=== PATIENT | male | born 1945 | race Caucasian/White ===

== ENCOUNTER → 2016-09-18 | Outpatient (CLI) | payer OTHER, MEDICARE ==
[~2016-09-18] MED LIST: B-COTAB18 PO; CPR500 PO; DTR5 PO; GLC5 PO; METF-384 PO; MULT-412 PO; NRN600 PO; OMG3 PO; OPTIRAY 300 IV PRN; POTA99TA PO; ZCR80 PO
--- NOTE | 2016-09-18 15:01 | DIAGNOSTIC IMAGING REPORT ---
IVP W/OR W/O TOMOGRAMS CLINICAL HISTORY: Follow-up ureteral stone. COMPARISON STUDY: KUB 04/03/2016. Abdomen and pelvis CT 02/28/2016. FINDINGS: Youth Coordinator image shows no renal or ureteral calculi. Punctate calcification within the right deep pelvis is consistent with a phlebolith. Of note, the renal shadows are partially obscured by overlying bowel gas. Additional overhead and nephrotomographic images of the abdomen were performed following the intravenous injection of contrast. There is symmetric perfusion of the kidneys. No hydronephrosis. Duplicated left renal collecting system. Focal scarring within the lower pole of the right kidney. No suspicious filling defects are seen within the opacified bilateral renal collecting systems, ureters, or bladder. There is a small postvoid residual. The duplicated left ureters do not appear to join with both inserting into the bladder. IMPRESSION: 1. No renal or ureteral calculi identified. 2. No hydronephrosis. 3. Duplicated left renal collecting system. The ureters do not appear to join with both inserting into the bladder. Electronically signed by: Barron Munoz M.D. 09/18/2016 2:59 PM
== END | disposition home or self-care (01) ==
LOC: C.RAD 12:16
PROVIDERS: ATTEND Urology
DX: N20.1 Calculus of ureter (principal); Q63.8 Other specified congenital malformations of kidney

== ENCOUNTER 2021-09-27 09:56 | Observation (INO) ==
--- NOTE | 2021-09-27 10:33 | Emergency Department Note ---
History of Present Illness General Chief complaint: Cough Stated complaint: COUGH, FEVER Time Seen by Provider: 09/27/21 10:16 Source: patient, RN notes reviewed and old records reviewed Mode of arrival: EMS Limitations: no limitations History of Present Illness This patient is a 75-year-old male who comes in complaint dry cough and shortn ess of breath. He says he has been sick since the middle of August. He apparently saw somebody in the [facility] office yesterday and told tells me he had a chest x-ray and a COVID test which were unremarkable. He has been drinking fluids although had 1 episode of posttussive emesis after coughing he says his mouth feels dry. No blood or melena stool. He does feel short of breath most of the time but worse when he coughs. No chest pain. No lower extremity pain or swelling. He has not had the COVID-vaccine. Denies that he has any underlying lung problems Home Medications Medication Instructions Recorded Confirmed Type aspirin 81 mg tablet 81 mg PO DAILY 09/27/21 09/27/21 History dulaglutide 3 mg/0.5 mL 3 mg SUBCUT WK 09/27/21 09/27/21 History subcutaneous pen injector (Trulicity) fluticasone propionate 50 2 spray INTRANASAL DAILY 09/27/21 09/27/21 History mcg/actuation nasal spray,suspension glipizide 10 mg tablet 10 mg PO BID 09/27/21 09/27/21 History metformin 1,000 mg tablet 1,000 mg PO UD 09/27/21 09/27/21 History metoprolol succinate 25 mg 25 mg PO DAILY 09/27/21 09/27/21 History tablet,extended release 24 hr multivitamin 1 tab PO DAILY 09/27/21 09/27/21 History omega-3s 300 eu-fnm-mes-other 1 cap PO 3XWK 09/27/21 09/27/21 History [id number] oil 1,000 mg capsule ([place]-3 Fish Oil) pantoprazole 40 mg tablet,delayed 40 mg PO BID 09/27/21 09/27/21 History release simvastatin 80 mg tablet 80 mg PO HS 09/27/21 09/27/21 History Allergies Allergy/AdvReac Type Severity Reaction Status Date / Time No Known Allergies Allergy Unverified 06/15/16 17:43 Past Med/Surg History Medical History (Updated 09/27/21 @ 15:19 by Seth Gerardo MD) Anxiety Calculus of gallbladder Diabetic polyneuropathy DM type 2 (diabetes mellitus, type 2) Dyslipidemia GERD (gastroesophageal reflux disease) Hx of adenomatous polyp of colon Hx of basal cell carcinoma Osteoarthritis Surgical History H/O colonoscopy Family History Father Colorectal cancer Diabetes Heart disease Brother Colorectal cancer Mother Breast cancer Sister Diabetes Social History Smoking Status: Never smoker Tobacco Type: Smokeless Tobacco (Dip or Chew) Hx Alcohol Use: No Hx Substance Use: No 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 Denies history of hypertension, cardiac disease, pulmonary disease, blood clots. He is on no blood thinners. Social history-he is and lives locally with his . He does not smoke or drink. Review of Systems A total of 10 systems reviewed and were otherwise negative Physical Exam Vital Signs Vital Signs - 24 hr 09/27/21 10:04 09/27/21 10:46 09/27/21 10:59 Temperature 37.1 C Temperature Source Oral Pulse Rate 98 H 92 H Pulse Rate [Apical] 98 H 93 H Pulse Rhythm [Apical] Regular Pulse Strength [Apical] Normal Respiratory Rate 14 24 Respiratory Effort / Characteristics Non-Labored Non-Labored Spontaneous Non-Labored Spontaneous Respiratory Depth Normal Normal Respiratory Pattern Regular Regular Blood Pressure 163/74 H Blood Pressure [Right Arm] 163/74 H 163/74 H Blood Pressure Mean 103 Blood Pressure Mean [Right Arm] 103 103 Blood Pressure Position Sitting Blood Pressure Position [Right Arm] Sitting Pulse Oximetry 94 94 Oxygen Delivery Method Room Air Room Air Oxygen Flow Rate Sepsis Recent Fever Within 48 Hours Yes Sepsis New/Unexplained Change in Mental Status No Sepsis Action Taken by Nursing No Action Required 09/27/21 11:15 09/27/21 11:30 09/27/21 12:00 Temperature Temperature Source Oral Pulse Rate Pulse Rate [Apical] 92 H 91 H 94 H Pulse Rhythm [Apical] Pulse Strength [Apical] Respiratory Rate 24 44 H 44 H Respiratory Effort / Characteristics Non-Labored Spontaneous Non-Labored Spontaneous Non-Labored Spontaneous Respiratory Depth Normal Normal Normal Respiratory Pattern Blood Pressure Blood Pressure [Right Arm] 125/79 123/76 127/74 Blood Pressure Mean Blood Pressure Mean [Right Arm] 94 91 91 Blood Pressure Position Blood Pressure Position [Right Arm] Pulse Oximetry 90 91 91 Oxygen Delivery Method Room Air Room Air Room Air Oxygen Flow Rate Sepsis Recent Fever Within 48 Hours Sepsis New/Unexplained Change in Mental Status Sepsis Action Taken by Nursing 09/27/21 12:15 09/27/21 12:30 09/27/21 13:00 Temperature Temperature Source Pulse Rate Pulse Rate [Apical] 91 H 92 H Pulse Rhythm [Apical] Pulse Strength [Apical] Respiratory Rate 28 H 40 H Respiratory Effort / Characteristics Non-Labored Spontaneous Non-Labored Spontaneous Non-Labored Spontaneous Respiratory Depth Normal Normal Respiratory Pattern Blood Pressure Blood Pressure [Right Arm] 124/75 143/87 H Blood Pressure Mean Blood Pressure Mean [Right Arm] 91 105 Blood Pressure Position Blood Pressure Position [Right Arm] Pulse Oximetry 90 92 Oxygen Delivery Method Room Air Room Air Oxygen Flow Rate Sepsis Recent Fever Within 48 Hours Sepsis New/Unexplained Change in Mental Status Sepsis Action Taken by Nursing 09/27/21 13:03 09/27/21 14:00 09/27/21 14:30 Temperature Temperature Source Pulse Rate Pulse Rate [Apical] 91 H Pulse Rhythm [Apical] Pulse Strength [Apical] Respiratory Rate 34 H Respiratory Effort / Characteristics Non-Labored Spontaneous Non-Labored Spontaneous Respiratory Depth Normal Respiratory Pattern Blood Pressure Blood Pressure [Right Arm] 136/87 Blood Pressure Mean Blood Pressure Mean [Right Arm] 103 Blood Pressure Position Blood Pressure Position [Right Arm] Pulse Oximetry 95 Oxygen Delivery Method Room Air Nasal Cannula Oxygen Flow Rate 2 Sepsis Recent Fever Within 48 Hours Sepsis New/Unexplained Change in Mental Status Sepsis Action Taken by Nursing 09/27/21 15:00 Temperature Temperature Source Pulse Rate Pulse Rate [Apical] Pulse Rhythm [Apical] Pulse Strength [Apical] Respiratory Rate Respiratory Effort / Characteristics Non-Labored Spontaneous Respiratory Depth Respiratory Pattern Blood Pressure Blood Pressure [Right Arm] Blood Pressure Mean Blood Pressure Mean [Right Arm] Blood Pressure Position Blood Pressure Position [Right Arm] Pulse Oximetry Oxygen Delivery Method Oxygen Flow Rate Sepsis Recent Fever Within 48 Hours Sepsis New/Unexplained Change in Mental Status Sepsis Action Taken by Nursing General: Well developed well nourished older male who appears in no acute distress, breathing comfortably on room air. Normal speech HEENT: Normal cephalic atraumatic. Pupils are equal round and reactive to light. Extraocular movements are intact. Oropharynx is pink with moist mucous membranes. No swelling of the mouth lips or tongue. Neck: Supple with a midline trachea. No meningeal signs or stiffness, no JVD or bruits. No Stridor. Chest: Clear to auscultation bilaterally with the exception of some crackles in the bases right greater than left. No increased work of breathing. Heart: Regular rate and rhythm without murmurs or gallops. Abdomen: Soft nontender, nondistended without rebound guarding or rigidity. Extremities: No cyanosis clubbing or edema. No calf tenderness or assymetry Spine/Back. Non tender to palpation. No CVA tenderness Skin: Good turgor without rashes. Neurologic exam: Cranial nerves two through 12 are intact. Motor and sensation are intact and symmetrical throughout. Course Administered Medications Magnesium Sulfate/Dextrose (Magnesium Sulfate / D5w) 1 gm in 100 mls @ 50 mls/h r IV Q2H [facility] Stop: 09/27/21 18:17 Last Admin: 09/27/21 14:43 Dose: 50 mls/hr Documented by: [id number] Discontinued Medications Dexamethasone Sodium Phosphate (DexamethasonePf 10 Mg/Ml Vial) 6 mg IV NOW ONE Stop: 09/27/21 12:57 Last Admin: 09/27/21 13:45 Dose: 6 mg Documented by: [id number] Potassium Chloride (Potassium Chloride Crtab 20 Meq Tabcr) 40 meq PO NOW STA Stop: 09/27/21 14:19 Last Admin: 09/27/21 14:43 Dose: 40 meq Documented by: [id number] Medical Decision Making Differential Diagnosis COVID, pneumonia, sepsis, CHF, cardiac disease, influenza, electrolyte or metabo lic abnormality, arrhythmia Medical Records Attestation: I reviewed the patient's medical records. Home Medications Current Medication List: was personally reviewed by me Laboratory Data Attestation: I reviewed the patient's lab results. Result diagrams: 09/27/21 10:45 09/27/21 10:45 Lab Results 09/27/21 09/27/21 09/27/21 Range/Units 10:45 10:45 10:45 WBC 3.21 L (4.8-10.8) K/uL RBC 4.57 L (4.7-6.1) M/uL Hgb 13.9 L (14.0-18.0) g/dL Hct 41.6 L (42-52) % MCV 91.0 (80-100) fL MCH 30.4 (25-34) pg MCHC 33.4 (32-36) g/dL RDW Std Deviation 44.2 (36.4-46.3) fL RDW Coeff of Donna 13.2 (11.5-14.5) % Plt Count 154 (130-400) K/uL MPV 9.7 (7.4-10.4) fL Immature Gran % (Auto) 0.3 % Neut % (Auto) 73.8 % Lymph % (Auto) 15.0 % [place] % (Auto) 10.9 % Eos % (Auto) 0.0 % Baso % (Auto) 0.0 % Neut # (Auto) 2.37 (1.4-6.5) K/uL Lymph # (Auto) 0.48 L (1.2-3.4) K/uL [place] # (Auto) 0.35 (0.11-0.59) K/uL Eos # (Auto) 0.00 (0-0.5) K/uL Baso # (Auto) 0.00 (0-0.2) K/uL Immature Gran # (Auto) 0.01 (0.00-0.02) K/uL PT 10.3 (9.0-12.0) Seconds INR 1.0 (0.9-1.1) APTT 29.6 (21.0-31.0) Seconds PTT Ratio 1.1 D-Dimer 400 (0-500) ug/L FEU Sodium 136 (136-145) mmol/L Potassium 3.4 L (3.5-5.1) mmol/L Chloride 99 (98-107) mmol/L Carbon Dioxide 25 (21-32) mmol/L Anion Gap 12 H (3-11) BUN 10 (6-23) mg/dl Creatinine 0.57 L (0.6-1.4) mg/dl Est Cr Clr Drug Dosing 124.5 ml/min Est GFR ( Amer) 118.1 ml/min Est GFR (Non-Af Amer) 101.9 ml/min BUN/Creatinine Ratio 17.5 (10-20) Glucose 236 H (70-99) mg/dl Lactate (0.4-2.0) mmol/L Calcium 8.2 L (8.5-10.1) mg/dl Magnesium 1.6 L (1.7-2.4) mg/dl Total Bilirubin 0.6 (0.2-1.0) mg/dl AST 35 (13-39) U/L ALT 23 (7-52) U/L Alkaline Phosphatase 48 (34-104) U/L Troponin I < 0.03 (0-0.04) ng/ml B-Natriuretic Peptide (0-100) pg/ml Total Protein 6.8 (6.0-8.3) gm/dl Albumin 3.6 (3.4-5.0) gm/dl Globulin 3.2 (2.5-4.0) gm/dl Albumin/Globulin Ratio 1.1 (0.9-2) Procalcitonin (0-0.5) ng/ml SARS-CoV-2 (PCR) (Negative) Influenza Type A (PCR) (Neg) Influenza Type B (PCR) (Neg) RSV (RT-PCR) (Neg) 09/27/21 09/27/21 09/27/21 Range/Units 10:45 10:45 10:45 WBC (4.8-10.8) K/uL RBC (4.7-6.1) M/uL Hgb (14.0-18.0) g/dL Hct (42-52) % MCV (80-100) fL MCH (25-34) pg MCHC (32-36) g/dL RDW Std Deviation (36.4-46.3) fL RDW Coeff of Donna (11.5-14.5) % Plt Count (130-400) K/uL MPV (7.4-10.4) fL Immature Gran % (Auto) % Neut % (Auto) % Lymph % (Auto) % [place] % (Auto) % Eos % (Auto) % Baso % (Auto) % Neut # (Auto) (1.4-6.5) K/uL Lymph # (Auto) (1.2-3.4) K/uL [place] # (Auto) (0.11-0.59) K/uL Eos # (Auto) (0-0.5) K/uL Baso # (Auto) (0-0.2) K/uL Immature Gran # (Auto) (0.00-0.02) K/uL PT (9.0-12.0) Seconds INR (0.9-1.1) APTT (21.0-31.0) Seconds PTT Ratio D-Dimer (0-500) ug/L FEU Sodium (136-145) mmol/L Potassium (3.5-5.1) mmol/L Chloride (98-107) mmol/L Carbon Dioxide (21-32) mmol/L Anion Gap (3-11) BUN (6-23) mg/dl Creatinine (0.6-1.4) mg/dl Est Cr Clr Drug Dosing ml/min Est GFR ( Amer) ml/min Est GFR (Non-Af Amer) ml/min BUN/Creatinine Ratio (10-20) Glucose (70-99) mg/dl Lactate 0.9 (0.4-2.0) mmol/L Calcium (8.5-10.1) mg/dl Magnesium (1.7-2.4) mg/dl Total Bilirubin (0.2-1.0) mg/dl AST (13-39) U/L ALT (7-52) U/L Alkaline Phosphatase (34-104) U/L Troponin I (0-0.04) ng/ml B-Natriuretic Peptide (0-100) pg/ml Total Protein (6.0-8.3) gm/dl Albumin (3.4-5.0) gm/dl Globulin (2.5-4.0) gm/dl Albumin/Globulin Ratio (0.9-2) Procalcitonin 0.06 (0-0.5) ng/ml SARS-CoV-2 (PCR) POSITIVE A* (Negative) Influenza Type A (PCR) Negative (Neg) Influenza Type B (PCR) Negative (Neg) RSV (RT-PCR) Negative (Neg) 09/27/21 Range/Units 12:43 WBC (4.8-10.8) K/uL RBC (4.7-6.1) M/uL Hgb (14.0-18.0) g/dL Hct (42-52) % MCV (80-100) fL MCH (25-34) pg MCHC (32-36) g/dL RDW Std Deviation (36.4-46.3) fL RDW Coeff of Donna (11.5-14.5) % Plt Count (130-400) K/uL MPV (7.4-10.4) fL Immature Gran % (Auto) % Neut % (Auto) % Lymph % (Auto) % [place] % (Auto) % Eos % (Auto) % Baso % (Auto) % Neut # (Auto) (1.4-6.5) K/uL Lymph # (Auto) (1.2-3.4) K/uL [place] # (Auto) (0.11-0.59) K/uL Eos # (Auto) (0-0.5) K/uL Baso # (Auto) (0-0.2) K/uL Immature Gran # (Auto) (0.00-0.02) K/uL PT (9.0-12.0) Seconds INR (0.9-1.1) APTT (21.0-31.0) Seconds PTT Ratio D-Dimer (0-500) ug/L FEU Sodium (136-145) mmol/L Potassium (3.5-5.1) mmol/L Chloride (98-107) mmol/L Carbon Dioxide (21-32) mmol/L Anion Gap (3-11) BUN (6-23) mg/dl Creatinine (0.6-1.4) mg/dl Est Cr Clr Drug Dosing ml/min Est GFR ( Amer) ml/min Est GFR (Non-Af Amer) ml/min BUN/Creatinine Ratio (10-20) Glucose (70-99) mg/dl Lactate (0.4-2.0) mmol/L Calcium (8.5-10.1) mg/dl Magnesium (1.7-2.4) mg/dl Total Bilirubin (0.2-1.0) mg/dl AST (13-39) U/L ALT (7-52) U/L Alkaline Phosphatase (34-104) U/L Troponin I (0-0.04) ng/ml B-Natriuretic Peptide 26 (0-100) pg/ml Total Protein (6.0-8.3) gm/dl Albumin (3.4-5.0) gm/dl Globulin (2.5-4.0) gm/dl Albumin/Globulin Ratio (0.9-2) Procalcitonin (0-0.5) ng/ml SARS-CoV-2 (PCR) (Negative) Influenza Type A (PCR) (Neg) Influenza Type B (PCR) (Neg) RSV (RT-PCR) (Neg) Imaging Data Attestation: I personally reviewed and interpreted this imaging study as foll ows: My Impression: Chest x-raydiffuse patchy infiltrates consistent consistent with COVID Radiologist's Impression: Chest X-Ray 09/27/21 10:29 XR chest 1V portable CLINICAL HISTORY: SEPSIS COMPARISON STUDY: Chest radiograph February 28, 2016. FINDINGS: Low lung volumes are noted. This is unchanged. No pneumothorax or pleural effusion is present. Interstitial thickening and suspected patchy bilateral airspace opacities are present. Cardiomediastinal silhouette is stable. IMPRESSION: Interstitial thickening and suspected patchy bilateral airspace opacities. The findings favor an infectious process. Pulmonary edema could appear similar. Radiographic follow-up is recommended to ensure resolution. ACT 112: Negative or not required by law. Electronically signed by: Sean Ludwig M.D. 09/27/2021 11:15 AM ECG Data Attestation: I personally reviewed and interpreted this ECG as follows: Indication: + SOB/dyspnea Rate (beats per minute): 95 Rhythm: + normal sinus ECG Intervals/blocks: + Normal QRS, + Prolonged QT and + Normal NE ECG Wallace: + Normal ECG ST segments: + Normal ST segments ECG Findings: + Other (Poor baseline/artifact); no PACs or no PVCs Comparison ECG Date: from (02/27/11) Change: no significant change MDM Narrative This patient comes in as described above. He was placed in room B7. he has had a cough although he denies fever he may have had a fever at some point. He does have some crackles in his bases. He was checked for COVID/influenza and a full sepsis type work-up was done to evaluate him for possible pneumonia sepsis and other etiologies as well as cardiac disease and blood clots. A D-dimer was also obtained. His lungs sound crackly and his chest x-ray also looks like a COVID infection. EKG was unremarkable for any ischemic changes or ectopy. He is nursing of electrolyte or metabolic abnormalities. COVID test did come back positive. The patient is hypoxemic with an O2 sat of 90 and given his symptoms I do think he should be admitted/observed. He was started on supplemental ox ygen as well as Decadron 6 mg IV [facility] these measures. Continuous cardiac monitoring: Orders were placed in EMR for continuous awake overnight monitor. Upon my interpretation patient was noted to be in normal sinus rhythm with a rate of 90 Impression & Plan COVID, Cough, Hypoxemia, SOB (shortness of breath) Discharge Plan Visit Data Chief Complaint: Cough Stated Complaint: COUGH, FEVER ED Provider: Seth Gerardo Discharge Problem: COVID, Cough, Hypoxemia, SOB (shortness of breath) Forms Stand Alone Forms: My [facility] Prescriptions Prescriptions: No Action multivitamin Tablet 1 tab PO DAILY RF: 0 glipizide 10 mg tablet 10 mg PO BID RF: 0 simvastatin 80 mg tablet 80 mg PO HS RF: 0 metformin 1,000 mg tablet 1,000 mg PO UD RF: 0 [place]-3 Fish Oil 300-1,000 mg Capsule 1 cap PO 3XWK RF: 0 pantoprazole 40 mg tablet,delayed release (DR/EC) 40 mg PO BID RF: 0 aspirin 81 mg Tablet 81 mg PO DAILY RF: 0 metoprolol succinate 25 mg tablet extended release 24 hr 25 mg PO DAILY RF: 0 fluticasone propionate 50 mcg/actuation [place],Suspension 2 spray INTRANASAL DAILY RF: 0 Trulicity 3 mg/0.5 mL pen injector 3 mg SUBCUT WK RF: 0 Referrals Referrals: Claire Richardson MD [Outside Practitioners] -
[2021-09-27 11:10] LABS: Hematocrit (blood only) 41.6 % (42-52); Hemoglobin 13.9 g/dL (14.0-18.0); Immature Granulocytes # (auto) 0.01 K/uL (0.00-0.02); Immature Granulocytes % (auto) 0.3 %; Lymphocytes # (auto) 0.48 K/uL (1.2-3.4); Mean Corpuscular Hemoglobin 30.4 pg (25-34); Mean Corpuscular Hgb Conc 33.4 g/dL (32-36); Mean Platelet Volume 9.7 fL (7.4-10.4); Monocytes # (auto) 0.35 K/uL (0.11-0.59); Monocytes % (auto) 10.9 %; Neutrophils # (auto) 2.37 K/uL (1.4-6.5); Neutrophils % (auto) 73.8 %; Platelet Count 154 K/uL (130-400); RDW Coefficient of Variation 13.2 % (11.5-14.5); RDW Standard Deviation 44.2 fL (36.4-46.3); Red Blood Count 4.57 M/uL (4.7-6.1); White Blood Count 3.21 K/uL (4.8-10.8)
--- NOTE | 2021-09-27 11:16 | XRay Report ---
XR chest 1V portable CLINICAL HISTORY: SEPSIS COMPARISON STUDY: Chest radiograph February 28, 2016. FINDINGS: Low lung volumes are noted. This is unchanged. No pneumothorax or pleural effusion is prese nt. Interstitial thickening and suspected patchy bilateral airspace opacities are present. Cardiomedi astinal silhouette is stable. IMPRESSION: Interstitial thickening and suspected patchy bilateral airspace opacities. The findings favor an infectious process. Pulmonary edema could appear similar. Radiographic follow-up is recommen ded to ensure resolution. ACT 112: Negative or not required by law. Electronically signed by: Sean Ludwig M.D. 09/27/2021 11:15 AM
[2021-09-27 11:22] LABS: D Dimer 400 ug/L FEU (0-500); Partial Thromboplastin Ratio 1.1; Partial Thromboplastin Time 29.6 Seconds (21.0-31.0); Prothrombin Time 10.3 Seconds (9.0-12.0)
[2021-09-27 11:28] LABS: Albumin Level 3.6 gm/dl (3.4-5.0); Anion Gap 12 (3-11); Bilirubin,Total 0.6 mg/dl (0.2-1.0); Calcium 8.2 mg/dl (8.5-10.1); Carbon Dioxide 25 mmol/L (21-32); Chloride 99 mmol/L (98-107); Magnesium 1.6 mg/dl (1.7-2.4); Potassium 3.4 mmol/L (3.5-5.1); Sodium 136 mmol/L (136-145)
[2021-09-27 11:33] LABS: Troponin I < 0.03 ng/ml (0-0.04)
[2021-09-27 11:34] LABS: Alanine Aminotransferase 23 U/L (7-52); Albumin Globulin Ratio 1.1 (0.9-2); Alkaline Phosphatase 48 U/L (34-104); Aspartate Aminotransferase 35 U/L (13-39); BUN Creatinine Ratio 17.5 (10-20); Blood Urea Nitrogen 10 mg/dl (6-23); Creatinine Clr Calc Pharmacy 124.5 ml/min; Est GFR (African American) 118.1 ml/min; Est GFR (Non-African American) 101.9 ml/min; Globulin 3.2 gm/dl (2.5-4.0); Glucose 236 mg/dl (70-99); Total Protein 6.8 gm/dl (6.0-8.3)
[2021-09-27 12:07] LABS: Influenza A virus by PCR Negative (Neg); Influenza B virus by PCR Negative (Neg); RSV by PCR Negative (Neg)
[2021-09-27 12:24] LABS: SARS CoV2 RNA(COVID-19) InHosp POSITIVE (Negative)
[2021-09-27] MEDS ORDERED: dexAMETHasone**PF** 10 MG/ML VIAL IV ONE (12:56)
--- NOTE | 2021-09-27 13:25 | History & Physical Report ---
Date of Service September 27, 2021 Assessment & Plan (1) Pneumonia due to COVID-19 virus: Plan: Admit to med/surg due to worsening clinical status, borderline O2 sats, co- morbid diabetes - Start dexamethasone - Monitor sats and start O2 if worsening - Labs in AM - Incentive spirometer/flutter valve (2) Hypokalemia: Plan: Replete and recheck in AM (3) Hypomagnesemia: Plan: Replete and recheck in AM (4) DM type 2 (diabetes mellitus, type 2): Plan: Will need to monitor sugars closely with use of dexamethasone. Holding outpatient meds - Insulin sliding scale - Accuchecks - Diabetic diet - A1c in the AM (5) Diabetic polyneuropathy: (6) Dyslipidemia: (7) GERD (gastroesophageal reflux disease): Plan: Continue home meds as appropriate for chronic diagnoses. Pt seen and reviewed with Dr. Santos. Plan of care discussed and as outlined above. DVT Prophylaxis: Lovenox Code status: DNR/DNI Raissa Tolentino PA-C History of Present Illness Chief Complaint: Cough Primary Care Provider: Oliverio Graves MD This is 75 y/o male with a PMH of DM2, polyneuropathy, dyslipidemia and OA presents with worsening cough x 1 month. He was seen by PCP office on 08/29 due to chest congestion and tightness with some head congestion but no cough at the time. COVID test was negative that day. Since then he has developed a cough that is becoming gradually worse. The cough is mostly non-productive but he will occasionally cough up a small amount of sputum. He reports that the cough kept him up all night last night which is the only reason that he came for evaluation this morning. [facility] records reviewed - his called the office two days ago concerned that pt had pneumonia. Chest x-ray was done outpatient yesterday and showed bibasilar atelectasis, could not rule out infection. He has been using cough drops and Cathy-seltzer for the cough for the past few days. Mouth feels very dry. No fevers, chills or sweats. His taste and smell have remained intact. No abdominal pain, N/V/D. Blood sugars in the 150s until about 1-2 weeks ago - since then they have been over 200 frequently but pt attributes to taking OTC cough meds. Appetite decreased. Denies chest pain, palpitations. No urinary symptoms. No sore throat, PND, head congestion at present. He did receive his flu vaccine this year but has not been vaccinated for COVID. Allergies Allergy/AdvReac Type Severity Reaction Status Date / Time No Known Allergies Allergy Unverified 02/28/16 17:43 Home Medications Medication Instructions Recorded Confirmed Type aspirin 81 mg tablet 81 mg PO DAILY 09/27/21 09/27/21 History dulaglutide 3 mg/0.5 mL 3 mg SUBCUT WK 09/27/21 09/27/21 History subcutaneous pen injector (Trulicity) fluticasone propionate 50 2 spray INTRANASAL DAILY 09/27/21 09/27/21 History mcg/actuation nasal spray,suspension glipizide 10 mg tablet 10 mg PO BID 09/27/21 09/27/21 History metformin 1,000 mg tablet 1,000 mg PO UD 09/27/21 09/27/21 History metoprolol succinate 25 mg 25 mg PO DAILY 09/27/21 09/27/21 History tablet,extended release 24 hr multivitamin 1 tab PO DAILY 09/27/21 09/27/21 History omega-3s 300 [id number] 1 cap PO 3XWK 09/27/21 09/27/21 History [id number] oil 1,000 mg capsule (Lomita-3 Fish Oil) pantoprazole 40 mg tablet,delayed 40 mg PO BID 09/27/21 09/27/21 History release simvastatin 80 mg tablet 80 mg PO HS 09/27/21 09/27/21 History Past Med/Surg History Medical History (Updated 09/27/21 @ 14:57 by Seda Tolentino PA-C) Anxiety Calculus of gallbladder Diabetic polyneuropathy DM type 2 (diabetes mellitus, type 2) Dyslipidemia GERD (gastroesophageal reflux disease) Hx of adenomatous polyp of colon Hx of basal cell carcinoma Osteoarthritis Surgical History H/O colonoscopy Family History Father Colorectal cancer Diabetes Heart disease Brother Colorectal cancer Mother Breast cancer Sister Diabetes Social History Smoking Status: Never smoker Tobacco Type: Smokeless Tobacco (Dip or Chew) Hx Alcohol Use: No Hx Substance Use: No 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 Feels Safe at Home: Yes Review of Systems Review of Systems: All systems reviewed & are unremarkable except as noted in HPI & below Constitutional: + fatigue and + anorexia; no fever, no chills and no sweats Eyes: no diplopia and no worsening vision Ear, Nose, Mouth, Throat: no nasal congestion, no nasal discharge and no sore throat Respiratory: + cough; no chest congestion, no dyspnea and no wheezing Cardiovascular: no chest pain, no palpitations, no syncope and no edema Gastrointestinal: no abdominal pain, no nausea, no vomiting and no diarr hea/loose stools Genitourinary: no dysuria, no decreased urination or no hematuria Musculoskeletal: no back pain and no neck pain Integumentary: no rash and no yellowing of the skin Neurologic: no generalized weakness and no headache(s) Psychiatric: no depression and no anxiety Physical Exam Constitutional: well developed and well nourished; no acute distress Eyes: + anicteric sclerae Neck: trachea midline Respiratory: no respiratory distress and no labored breathing Auscultation: + diminished lung sounds and + crackles (at bilateral bases); no rales and no rhonchi Cardiovascular: Rate/Rhythm: regular rate and regular rhythm Vessels: dorsalis pedis pulses present and radial pulses present; no carotid bruit Extremities: no pedal edema Gastrointestinal (Abdomen): Inspection/Auscultation: normal bowel sounds; abdomen not distended Percussion/Palpation: abdomen soft; abdomen nontender Musculoskeletal: Head/Neck/Chest: normocephalic, head atraumatic and neck supple Skin: no jaundice Neurologic: moves all extremities; no focal motor deficits Psychiatric: A+Ox3, euthymic affect Results & Data Results & Data ([facility]) Vital Signs (Past 12 Hours) Vital Signs Temp Pulse Pulse Resp BP BP Pulse Ox 09/27/21 12:15 91 H 28 H 124/75 90 09/27/21 12:00 94 H 44 H 127/74 91 09/27/21 11:30 91 H 44 H 123/76 91 09/27/21 11:15 92 H 24 125/79 90 09/27/21 10:46 92 H 93 H 24 163/74 H 94 09/27/21 10:04 37.1 C 98 H 98 H 14 163/74 H 163/74 H 94 Laboratory Results Laboratory Results - last 24 hr 09/27/21 09/27/21 09/27/21 10:45 10:45 10:45 WBC 3.21 L RBC 4.57 L Hgb 13.9 L Hct 41.6 L MCV 91.0 MCH 30.4 MCHC 33.4 RDW Std Deviation 44.2 RDW Coeff of Donna 13.2 Plt Count 154 MPV 9.7 Immature Gran % (Auto) 0.3 Neut % (Auto) 73.8 Lymph % (Auto) 15.0 Bibb % (Auto) 10.9 Eos % (Auto) 0.0 Baso % (Auto) 0.0 Neut # (Auto) 2.37 Lymph # (Auto) 0.48 L Bibb # (Auto) 0.35 Eos # (Auto) 0.00 Baso # (Auto) 0.00 Immature Gran # (Auto) 0.01 PT 10.3 INR 1.0 APTT 29.6 PTT Ratio 1.1 D-Dimer 400 Sodium 136 Potassium 3.4 L Chloride 99 Carbon Dioxide 25 Anion Gap 12 H BUN 10 Creatinine 0.57 L Est Cr Clr Drug Dosing 124.5 Est GFR ( Amer) 118.1 Est GFR (Non-Af Amer) 101.9 BUN/Creatinine Ratio 17.5 Glucose 236 H Lactate Calcium 8.2 L Magnesium 1.6 L Total Bilirubin 0.6 AST 35 ALT 23 Alkaline Phosphatase 48 Troponin I < 0.03 B-Natriuretic Peptide Total Protein 6.8 Albumin 3.6 Globulin 3.2 Albumin/Globulin Ratio 1.1 Procalcitonin SARS-CoV-2 (PCR) Influenza Type A (PCR) Influenza Type B (PCR) RSV (RT-PCR) 09/27/21 09/27/21 09/27/21 10:45 10:45 10:45 WBC RBC Hgb Hct MCV MCH MCHC RDW Std Deviation RDW Coeff of Donna Plt Count MPV Immature Gran % (Auto) Neut % (Auto) Lymph % (Auto) Bibb % (Auto) Eos % (Auto) Baso % (Auto) Neut # (Auto) Lymph # (Auto) Bibb # (Auto) Eos # (Auto) Baso # (Auto) Immature Gran # (Auto) PT INR APTT PTT Ratio D-Dimer Sodium Potassium Chloride Carbon Dioxide Anion Gap BUN Creatinine Est Cr Clr Drug Dosing Est GFR ( Amer) Est GFR (Non-Af Amer) BUN/Creatinine Ratio Glucose Lactate 0.9 Calcium Magnesium Total Bilirubin AST ALT Alkaline Phosphatase Troponin I B-Natriuretic Peptide Total Protein Albumin Globulin Albumin/Globulin Ratio Procalcitonin 0.06 SARS-CoV-2 (PCR) POSITIVE A* Influenza Type A (PCR) Negative Influenza Type B (PCR) Negative RSV (RT-PCR) Negative 09/27/21 12:43 WBC RBC Hgb Hct MCV MCH MCHC RDW Std Deviation RDW Coeff of Donna Plt Count MPV Immature Gran % (Auto) Neut % (Auto) Lymph % (Auto) Bibb % (Auto) Eos % (Auto) Baso % (Auto) Neut # (Auto) Lymph # (Auto) Bibb # (Auto) Eos # (Auto) Baso # (Auto) Immature Gran # (Auto) PT INR APTT PTT Ratio D-Dimer Sodium Potassium Chloride Carbon Dioxide Anion Gap BUN Creatinine Est Cr Clr Drug Dosing Est GFR ( Amer) Est GFR (Non-Af Amer) BUN/Creatinine Ratio Glucose Lactate Calcium Magnesium Total Bilirubin AST ALT Alkaline Phosphatase Troponin I B-Natriuretic Peptide Pending Total Protein Albumin Globulin Albumin/Globulin Ratio Procalcitonin SARS-CoV-2 (PCR) Influenza Type A (PCR) Influenza Type B (PCR) RSV (RT-PCR) Diagnostic Findings Chest X-ray 09/27/21 - IMPRESSION: Interstitial thickening and suspected patchy bilateral airspace opacities. The findings favor an infectious process. Pulmonary edema could appear similar. Radiographic follow-up is recommended to ensure resolution. Medications Administered Laboratory Results - last 24 hr 09/27/21 09/27/21 09/27/21 10:45 10:45 10:45 WBC 3.21 L RBC 4.57 L Hgb 13.9 L Hct 41.6 L MCV 91.0 MCH 30.4 MCHC 33.4 RDW Std Deviation 44.2 RDW Coeff of Donna 13.2 Plt Count 154 MPV 9.7 Immature Gran % (Auto) 0.3 Neut % (Auto) 73.8 Lymph % (Auto) 15.0 Bibb % (Auto) 10.9 Eos % (Auto) 0.0 Baso % (Auto) 0.0 Neut # (Auto) 2.37 Lymph # (Auto) 0.48 L Bibb # (Auto) 0.35 Eos # (Auto) 0.00 Baso # (Auto) 0.00 Immature Gran # (Auto) 0.01 PT 10.3 INR 1.0 APTT 29.6 PTT Ratio 1.1 D-Dimer 400 Sodium 136 Potassium 3.4 L Chloride 99 Carbon Dioxide 25 Anion Gap 12 H BUN 10 Creatinine 0.57 L Est Cr Clr Drug Dosing 124.5 Est GFR ( Amer) 118.1 Est GFR (Non-Af Amer) 101.9 BUN/Creatinine Ratio 17.5 Glucose 236 H Lactate Calcium 8.2 L Magnesium 1.6 L Total Bilirubin 0.6 AST 35 ALT 23 Alkaline Phosphatase 48 Troponin I < 0.03 B-Natriuretic Peptide Total Protein 6.8 Albumin 3.6 Globulin 3.2 Albumin/Globulin Ratio 1.1 Procalcitonin SARS-CoV-2 (PCR) Influenza Type A (PCR) Influenza Type B (PCR) RSV (RT-PCR) 09/27/21 09/27/21 09/27/21 10:45 10:45 10:45 WBC RBC Hgb Hct MCV MCH MCHC RDW Std Deviation RDW Coeff of Donna Plt Count MPV Immature Gran % (Auto) Neut % (Auto) Lymph % (Auto) Bibb % (Auto) Eos % (Auto) Baso % (Auto) Neut # (Auto) Lymph # (Auto) Bibb # (Auto) Eos # (Auto) Baso # (Auto) Immature Gran # (Auto) PT INR APTT PTT Ratio D-Dimer Sodium Potassium Chloride Carbon Dioxide Anion Gap BUN Creatinine Est Cr Clr Drug Dosing Est GFR ( Amer) Est GFR (Non-Af Amer) BUN/Creatinine Ratio Glucose Lactate 0.9 Calcium Magnesium Total Bilirubin AST ALT Alkaline Phosphatase Troponin I B-Natriuretic Peptide Total Protein Albumin Globulin Albumin/Globulin Ratio Procalcitonin 0.06 SARS-CoV-2 (PCR) POSITIVE A* Influenza Type A (PCR) Negative Influenza Type B (PCR) Negative RSV (RT-PCR) Negative 09/27/21 12:43 WBC RBC Hgb Hct MCV MCH MCHC RDW Std Deviation RDW Coeff of Donna Plt Count MPV Immature Gran % (Auto) Neut % (Auto) Lymph % (Auto) Bibb % (Auto) Eos % (Auto) Baso % (Auto) Neut # (Auto) Lymph # (Auto) Bibb # (Auto) Eos # (Auto) Baso # (Auto) Immature Gran # (Auto) PT INR APTT PTT Ratio D-Dimer Sodium Potassium Chloride Carbon Dioxide Anion Gap BUN Creatinine Est Cr Clr Drug Dosing Est GFR ( Amer) Est GFR (Non-Af Amer) BUN/Creatinine Ratio Glucose Lactate Calcium Magnesium Total Bilirubin AST ALT Alkaline Phosphatase Troponin I B-Natriuretic Peptide 26 Total Protein Albumin Globulin Albumin/Globulin Ratio Procalcitonin SARS-CoV-2 (PCR) Influenza Type A (PCR) Influenza Type B (PCR) RSV (RT-PCR)
[2021-09-27] MEDS ORDERED: POTASSIUM CHLORIDE CRTAB 20 MEQ TABCR PO STA (14:18)
[2021-09-27] MEDS: MAGNESIUM SULFATE / D5W 1 GM/100 ML BAG IV SCH ×2 (14:43→16:48)
[2021-09-27] MEDS ORDERED: DEXTROSE 50% 50 ML SYRINGE IV PRN (15:52)
[2021-09-27] MEDS ORDERED: GLUCOSE 10 TABS/TUBE PO PRN (15:52)
[2021-09-27] MEDS ORDERED: ACETAMINOPHEN 325 MG TAB PO PRN (15:52)
[2021-09-27] MEDS ORDERED: CARBOHYDRATES FOR HYPOGLYCEMIA PO PRN (15:52)
[2021-09-27] MEDS ORDERED: GLUCAGON FOR INJ 1 MG VIAL SQ PRN (15:52)
[2021-09-27] MEDS ORDERED: GLUCOSE 40% GEL 15 GM TUBE PO PRN (15:52)
[2021-09-27] MEDS: INSULIN ASPART PER UNIT SC SCH ×2 (17:42→21:50)
[2021-09-27] MEDS: METOPROLOL SUCC 25MG EXT REL TAB PO SCH (18:01)
--- NOTE | 2021-09-27 18:25 | Electrocardiogram Report ---
Test Reason : Blood Pressure : / mmHG Vent. Rate : 095 BPM Atrial Rate : 095 BPM P-R Int : 168 ms QRS Dur : 100 ms QT Int : 394 ms P-R-T Axes : 049 -05 014 degrees QTc Int : 495 ms Poor data quality, interpretation may be adversely affected Normal sinus rhythm Prolonged QT Abnormal ECG When compared with ECG of 28-FEB-2016 22:15, QT has lengthened Confirmed by Rajendra Garcia ([id number]) on 09/27/2021 6:24:53 PM Referred By: REFERRED SELF Confirmed By:Rajendra Garcia
[2021-09-27] MEDS: ENOXAPARIN INJ 40 MG/0.4 ML SYR SQ SCH (20:09)
[2021-09-27] MEDS: PANTOprazole 40 MG TAB PO SCH (20:09)
[2021-09-27] MEDS ORDERED: SIMVASTATIN 80 MG TAB PO SCH (21:00)
[2021-09-28 06:43] LABS: Hematocrit (blood only) 42.1 % (42-52); Hemoglobin 14.1 g/dL (14.0-18.0); Lymphocytes # (auto) 0.63 K/uL (1.2-3.4); Lymphocytes % (auto) 19.6 %; Mean Corpuscular Hemoglobin 30.5 pg (25-34); Mean Corpuscular Hgb Conc 33.5 g/dL (32-36); Mean Corpuscular Volume 90.9 fL (80-100); Mean Platelet Volume 9.8 fL (7.4-10.4); Monocytes # (auto) 0.37 K/uL (0.11-0.59); Monocytes % (auto) 11.5 %; Neutrophils # (auto) 2.21 K/uL (1.4-6.5); Neutrophils % (auto) 68.9 %; Platelet Count 167 K/uL (130-400); RDW Coefficient of Variation 13.1 % (11.5-14.5); RDW Standard Deviation 43.3 fL (36.4-46.3); Red Blood Count 4.63 M/uL (4.7-6.1); White Blood Count 3.21 K/uL (4.8-10.8)
[2021-09-28 07:08] LABS: BUN Creatinine Ratio 31.5 (10-20); Calcium 8.3 mg/dl (8.5-10.1); Creatinine Clr Calc Pharmacy 129.8 ml/min; Est GFR (African American) 120.7 ml/min; Est GFR (Non-African American) 104.2 ml/min; Potassium 3.8 mmol/L (3.5-5.1)
[2021-09-28 07:48] LABS: Estimated Average Glucose 220 mg/dl; Hemoglobin A1C 9.3 % (4.5-5.6)
[2021-09-28] MEDS: ENOXAPARIN INJ 40 MG/0.4 ML SYR SQ SCH (08:41)
[2021-09-28] MEDS: PANTOprazole 40 MG TAB PO SCH (08:42)
[2021-09-28] MEDS: METOPROLOL SUCC 25MG EXT REL TAB PO SCH (08:42)
[2021-09-28] MEDS: INSULIN ASPART PER UNIT SC SCH ×3 (08:55→17:54)
[2021-09-28] MEDS ORDERED: dexAMETHasone 6 MG in SYRINGE 0 ML IV SCH (09:00)
[2021-09-28] MEDS ORDERED: ASPIRIN 81 MG ECTAB PO SCH (09:00)
[2021-09-28 12:49] LABS: Appearance Urine Clear (Clear); Bacteria Urine Automated Negative (Negative); Bilirubin Urine Negative (Negative); Blood Urine Negative (Negative); Color Urine Yellow; Glucose Urine UA 3+ (Negative); Ketones Urine 4+ (Negative); Leukocyte Esterase Urine Negative (Negative); Nitrite Urine Negative (Negative); Protein Urine 2+ (Negative); RBC Urine Automated 0-4 /hpf (0-4); Specific Gravity Urine 1.034 (1.000-1.030); Urobilinogen Urine Negative (Negative)
--- NOTE | 2021-09-28 15:25 | Hospitalist Progress Note ---
Date of Service September 28, 2021 Assessment & Plan (1) Pneumonia due to COVID-19 virus: Plan: Present on admission with worsening cough CXR showed interstitial thickening and suspected patchy bilateral airspace opacities. The findings favor an infectious process. IV dexamethasone was given in the ER Does not meet criteria for Remdesivir since symptoms have been going on for about 3 weeks 2 step exercise done and did not require any oxygen supplement Currently on IV dexamethasone, might consider to try a short course of PO steroid on discharge, but due to his diabetes I am very reluctant Continue Incentive spirometer/flutter valve Saturated well on RA Pt is very anxious to go home Pt was advised if develops any fever or shortness of breath to seek medical attention (2) Hypokalemia: Plan: Potassium 3.4 today, Potassium 3.8 today Stable (3) Hypomagnesemia: Plan: Mg stable (4) DM type 2 (diabetes mellitus, type 2): Plan: HgbA1c 9.3 today Will resume outpatient diabetes med on discharge Continue insulin sliding scale during the hospital course staff educator on board Continue monitor BS (5) Dyslipidemia: (6) GERD (gastroesophageal reflux disease): Plan: Continue pantoprazole Stable Plan: . DVT Prophylaxis: Lovenox Code status: DNR/DNI Disposition Will discharge home today Admission and Anticipated Discharge Date Admission Date: September 27, 2021 Subjective Pt was seen and examined for follow up of SOB due to COVID 19 Lying in bed with no acute distress watching TV Pt said that he feels much better today He has not been required any oxygen supplement He said that his cough improves significantly He had a 2 step done that today where he does not require any oxygen supplement Denies any chest pain, palpitation, dizziness and SOB Review of Systems Review of Systems: All systems reviewed & are unremarkable except as noted in Subjective Physical Exam Physical Exam: General- No acute distress Head- atraumatic Eyes- PERRL, EOMI, ENT- oropharynx clear Neck- supple, no JVD Lungs- +diminished breath sound Heart- regular rhythm; no murmur Abdomen- normal bowel sounds, soft, nontender Extremities- no calf tenderness Neuro- alert, oriented x 3; PERRL, EOMI; no facial palsy; no dysarthria Skin- warm & dry Results & Data Results & [facility] ([facility]) Vital Signs (Past 12 Hours) Vital Signs Temp Pulse Pulse Pulse Pulse Resp Resp 09/28/21 15:15 90 92 H 89 16 09/28/21 08:40 16 09/28/21 08:07 36.8 C 80 16 Resp Resp BP Pulse Ox Pulse Ox Pulse Ox Pulse Ox 09/28/21 15:15 16 16 93 93 93 09/28/21 08:40 09/28/21 08:07 130/75 93
--- NOTE | 2021-09-28 16:17 | Communication Note ---
Date of Service: September 28, 2021 By CMS guidelines, a determination that the admission or continued stay is not medically necessary has been made by a member of the Utilization Review co mmittee and a physician for this hospital stay. Therefore, a Code 44 will be completed and the inpatient admission will be changed to outpatient. Glenys Zarate DO
== END 2021-09-28 18:14 | disposition home or self-care (01) ==
LOC: ED 09:56 → INTOOBSV 13:53 → 3E 13:53

== ENCOUNTER 2021-10-08 22:16 | Inpatient (IN) ==
[2021-10-08] MEDS ORDERED: ALBUT/IPRATROP 3MG/0.5MG NEB 3 ML VIAL NEB STA ×2 (23:11→23:33)
[2021-10-08 23:21] LABS: Hematocrit (blood only) 45.5 % (42-52); Hemoglobin 15.6 g/dL (14.0-18.0); Mean Corpuscular Hemoglobin 30.8 pg (25-34); Mean Corpuscular Hgb Conc 34.3 g/dL (32-36); Mean Corpuscular Volume 89.9 fL (80-100); Mean Platelet Volume 10.3 fL (7.4-10.4); Platelet Count 289 K/uL (130-400); RDW Coefficient of Variation 13.2 % (11.5-14.5); RDW Standard Deviation 42.5 fL (36.4-46.3); Red Blood Count 5.06 M/uL (4.7-6.1); White Blood Count 11.73 K/uL (4.8-10.8)
--- NOTE | 2021-10-08 23:36 | Emergency Department Note ---
History of Present Illness General Chief complaint: Shortness of Breath/Dyspnea Stated complaint: SOB, FEVER, COUGH, Time Seen by Provider: 10/08/21 23:03 Source: patient Mode of arrival: ambulatory Limitations: physical limitation (Increased work of breathing, shortness of felipe ath) History of Present Illness Provider complaint: Shortness of breath Maximum Pain Intensity: 5 Associated symptoms: + cough and + shortness of breath; no chest pain, no fever/chills, no headaches, no loss of appetite or no nausea/vomiting Treatments prior to arrival: none This is a 75-year-old male presents emerge department complaint of increased shortness of breath. Patient states he was recently discharged after being admitted with pneumonia and Covid. He states he finished his antibiotics. States he is no longer taking steroids. States he was not using the inhaler that he was given at home. Patient states breathing became worse tonight. Patient only speaks in a few short phrases he has significant increased work of breathing. Patient was placed on oxygen on arrival due to hypoxia. States he is not on oxygen at home and was not discharged on any. Patient denies any prior history of COPD or asthma. Pt seen during a time of high acuity and national emergency pandemic while wearing PPE. Home Medications Medication Instructions Recorded Confirmed Type aspirin 81 mg tablet 81 mg PO DAILY 09/27/21 10/09/21 History dulaglutide 3 mg/0.5 mL 3 mg SUBCUT WK 09/27/21 10/09/21 History subcutaneous pen injector (Trulicity) fluticasone propionate 50 2 spray INTRANASAL DAILY 09/27/21 10/09/21 History mcg/actuation nasal spray,suspension glipizide 10 mg tablet 10 mg PO BID 09/27/21 10/09/21 History metformin 1,000 mg tablet 1,000 mg PO UD 09/27/21 10/09/21 History metoprolol succinate 25 mg 25 mg PO DAILY 09/27/21 10/09/21 History tablet,extended release 24 hr multivitamin 1 tab PO DAILY 09/27/21 10/09/21 History omega-3s 300 [id number]-oom-wrf-other 1 cap PO 3XWK 09/27/21 10/09/21 History [id number] oil 1,000 mg capsule ([place]-3 Fish Oil) pantoprazole 40 mg tablet,delayed 40 mg PO BID 09/27/21 10/09/21 History release simvastatin 80 mg tablet 80 mg PO HS 09/27/21 10/09/21 History guaifenesin 200 mg tablet 200 mg PO Q6H PRN #30 tab 09/28/21 10/09/21 Rx Allergies Allergy/AdvReac Type Severity Reaction Status Date / Time No Known Allergies Allergy Unverified 02/28/16 17:43 Past Med/Surg History Medical History Anxiety Calculus of gallbladder Diabetic polyneuropathy DM type 2 (diabetes mellitus, type 2) Dyslipidemia GERD (gastroesophageal reflux disease) Hx of adenomatous polyp of colon Hx of basal cell carcinoma Osteoarthritis Surgical History H/O colonoscopy Family History Father Colorectal cancer Diabetes Heart disease Brother Colorectal cancer Mother Breast cancer Sister Diabetes Social History Smoking Status: Unknown if ever smoked Tobacco Type: Smokeless Tobacco (Dip or Chew) Hx Alcohol Use: Yes Alcohol type: beer Hx Substance Use: No Preferred Language: Hebrew Communication Ability: Effective Lining Brusher Required: No Beliefs That Will Affect Care: None marital status: Current Living Situation: Spouse 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 Feels Safe at Home: Yes Safety Concerns: Feels Safe At This Time Assistive Devices: Cane and Walker Review of Systems A total of 10 systems reviewed and were otherwise negative All systems reviewed & are unremarkable except as noted in HPI & below Physical Exam Vital Signs Vital Signs - 24 hr 10/09/21 04:06 10/09/21 04:33 10/09/21 04:38 Pulse Rate [Finger] Respiratory Rate Respiratory Effort / Characteristics Non-Labored Short of Breath Blood Pressure [Right Arm] Blood Pressure Mean [Right Arm] Pulse Oximetry 93 86 L Oxygen Delivery Method Nasal Cannula Oxymask Oxymask Oxygen Flow Rate 5 9 9 Fraction of Inspired Oxygen SaO2/FiO2 Ratio 10/09/21 04:52 10/09/21 04:55 10/09/21 05:33 Pulse Rate [Finger] 88 Respiratory Rate 18 Respiratory Effort / Characteristics Non-Labored Spontaneous Blood Pressure [Right Arm] 114/74 Blood Pressure Mean [Right Arm] 87 Pulse Oximetry 90 95 Oxygen Delivery Method High Flow Nasal Cannula High Flow Nasal Cannula High Flow Nasal Cannula Oxygen Flow Rate 60 Fraction of Inspired Oxygen 100 160 160 SaO2/FiO2 Ratio 59 GENERAL: alert, ill appearing, well nourished, moderate distress, non-toxic, increased work of breathing, nonrebreather in place EYE EXAM: normal conjunctiva, PERRL and EOM's grossly intact OROPHARYNX: no exudate, no erythema, lips, buccal mucosa, and tongue normal and mucous membranes are dry NECK: supple, no nuchal rigidity, no adenopathy, non-tender LUNGS: Decreased b/l to auscultation. Normal chest wall mechanics, no w/r, faint b/l rales, increased WOB, resp distress, no retractions HEART: no murmurs, S1 normal and S2 normal ABDOMEN: abdomen soft, non-tender, normo-active bowel sounds, no masses, no rebound or guarding. BACK: Back is symmetrical on inspection and there is no deformity, no midline tenderness, no CVA tenderness. SKIN: no rashes and no bruising UPPER EXTREMITIES: upper extremities are grossly normal. FROM, nml pulses b/l. LOWER EXTREMITIES: No pitting edema. FROM, nml pulses b/l. NEURO EXAM: Normal sensorium, cranial nerves II-XII grossly intact, normal speech, no gross weakness of arms, no gross weakness of legs. Gross sensation intact. Course Administered Medications Aspirin (Aspirin 81 Mg Ectab) 81 mg PO DAILY [facility] Stop: 11/08/21 08:59 Last Admin: 10/09/21 10:03 Dose: 81 mg Documented by: [id number] Enoxaparin Sodium (Enoxaparin Inj 40 Mg/0.4 Ml Syr) 40 mg SQ Q24H [facility] Stop: 11/08/21 08:30 Last Admin: 10/09/21 10:03 Dose: 40 mg Documented by: [id number] Fluticasone Propionate (Fluticasone Propionate Na Spr 16 Gm Btl) 2 sprays NA DAILY [facility] Stop: 11/08/21 08:59 Last Admin: 10/09/21 10:11 Dose: Not Given Documented by: [id number] Ceftriaxone Sodium 1,000 mg/ (Dextrose) 50 mls @ 100 mls/hr IV Q24H [facility]; Protocol Stop: 10/16/21 06:29 Last Infusion: 10/09/21 06:50 Dose: 0 mls/hr Documented by: [id number] Admin: 10/09/21 06:30 Dose: 100 mls/hr Documented by: [id number] Doxycycline Hyclate 100 mg/ (Dextrose) 110 mls @ 50 mls/hr IV Q12H [facility] Stop: 10/16/21 06:29 Last Infusion: 10/10/21 00:10 Dose: 0 mls/hr Documented by: [id number] Admin: 10/09/21 21:43 Dose: 50 mls/hr Documented by: [id number] Infusion: 10/09/21 12:01 Dose: 0 mls/hr Documented by: [id number] Admin: 10/09/21 08:43 Dose: 50 mls/hr Documented by: [id number] Dexamethasone 6 mg/ Syringe 1.5 mls @ 1 mls/min IV Q24H [facility] Stop: 11/08/21 11:59 Last Admin: 10/09/21 12:51 Dose: 1 mls/min Documented by: [id number] Insulin Aspart (Insulin Aspart Per Unit) 0 units SC ACHS [facility] Stop: 11/08/21 08:30 Last Admin: 10/09/21 21:58 Dose: Not Given Documented by: [id number] Cosigned by: [id number] Admin: 10/09/21 20:49 Dose: 5 units Documented by: [id number] Cosigned by: [id number] Admin: 10/09/21 13:31 Dose: 5 units Documented by: [id number] Cosigned by: [id number] Admin: 10/09/21 10:11 Dose: 4 units Documented by: [id number] Cosigned by: [id number] Insulin Human NPH (Insulin Human Nph) 25 units SC DAILY [facility] Stop: 11/08/21 13:44 Last Admin: 10/09/21 20:47 Dose: Not Given Documented by: [id number] Levalbuterol HCl (Levalbuterol Hcl 1.25 Mg/3 Ml Neb) 1.25 mg NEB Q6R [facility]; Protocol Stop: 11/08/21 12:59 Last Admin: 10/10/21 00:08 Dose: 1.25 mg Documented by: [id number] Admin: 10/09/21 19:13 Dose: 1.25 mg Documented by: [id number] Admin: 10/09/21 12:55 Dose: 1.25 mg Documented by: [id number] Metoprolol Succinate (Metoprolol Succ 25mg Ext Rel Tab) 25 mg PO DAILY [facility] Stop: 11/08/21 08:59 Last Admin: 10/09/21 10:04 Dose: 25 mg Documented by: [id number] Multivitamins (Multivitamin Tab) 1 tab PO DAILY [facility] Stop: 11/08/21 08:59 Last Admin: 10/09/21 10:04 Dose: 1 tab Documented by: [id number] Pantoprazole Sodium (Pantoprazole 40 Mg Tab) 40 mg PO BID [facility] Stop: 11/08/21 08:59 Last Admin: 10/09/21 21:44 Dose: 40 mg Documented by: [id number] Admin: 10/09/21 10:04 Dose: 40 mg Documented by: [id number] Simvastatin (Simvastatin 80 Mg Tab) 80 mg PO HS [facility] Stop: 11/08/21 20:59 Last Admin: 10/09/21 21:43 Dose: 80 mg Documented by: [id number] Discontinued Medications Albuterol (Albut/Ipratrop 3mg/0.5mg Neb 3 Ml Vial) 3 ml NEB NOW STA; Protocol Stop: 10/08/21 23:12 Last Admin: 10/08/21 23:47 Dose: 3 ml Documented by: [id number] Albuterol (Albut/Ipratrop 3mg/0.5mg Neb 3 Ml Vial) 3 ml NEB NOW STA; Protocol Stop: 10/08/21 23:34 Last Admin: 10/08/21 23:47 Dose: 3 ml Documented by: [id number] Ceftriaxone Sodium (Ceftriaxone Sodium 1000mg/50ml D5w) Confirm Administered Dose 1,000 mg IV .STK-MED [facility] Stop: 10/09/21 06:27 Last Admin: 10/09/21 06:31 Dose: 1,000 mg Documented by: [id number] Sodium Chloride (Nss 1000ml) 1,000 mls @ 125 mls/hr IV .Q8H [facility] Stop: 11/08/21 00:29 Last Admin: 10/09/21 13:05 Dose: Not Given Documented by: [id number] Infusion: 10/09/21 10:34 Dose: 0 mls/hr Documented by: [id number] Admin: 10/09/21 02:19 Dose: 125 mls/hr Documented by: [id number] Insulin Glargine (Insulin Glargine Solostar 100 Units/Ml 3 Ml Pen) 6 units SC BID [facility] Stop: 11/08/21 08:59 Last Admin: 10/09/21 10:11 Dose: 6 units Documented by: [id number] Cosigned by: [id number] Insulin Human Regular (Novolin-R Insulin Per Unit Charge) 8 units SC NOW STA Stop: 10/09/21 00:22 Last Admin: 10/09/21 02:19 Dose: 8 units Documented by: [id number] Cosigned by: [id number] Ioversol (Optiray 320 125ml) 117 ml IV ONCE ONE Stop: 10/09/21 01:48 Last Admin: 10/09/21 01:47 Dose: 117 ml Documented by: [id number] Critical Care Time Critical Care Time: Yes Total Critical Care Time: 39 Critical care of 39 min performed to assess and manage high likelihood of life- threatening dyspnea and hypoxia, involving labs and imaging performed with asses sment to evaluate dyspnea and hypoxia diagnosis with frequent reassessment. This time includes bedside time, treatment discussions with patient/family/consultants, documentation time and excludes procedure time. Medical Decision Making Differential Diagnosis Differential diagnoses includes but is not limited to pneumonia, bronchitis, COPD/Asthma exacerbation, pneumothorax, pulmonary embolism, congestive heart failure, acute coronary syndrome Medical Records Attestation: I reviewed the patient's medical records. Home Medications Current Medication List: was personally reviewed by me Laboratory Data Attestation: I reviewed the patient's lab results. Result diagrams: 10/08/21 22:40 10/09/21 03:45 Lab Results 10/08/21 10/08/21 10/08/21 Range/Units 22:40 22:40 22:40 WBC 11.73 H (4.8-10.8) K/uL RBC 5.06 (4.7-6.1) M/uL Hgb 15.6 (14.0-18.0) g/dL Hct 45.5 (42-52) % MCV 89.9 (80-100) fL MCH 30.8 (25-34) pg MCHC 34.3 (32-36) g/dL RDW Std Deviation 42.5 (36.4-46.3) fL RDW Coeff of Donna 13.2 (11.5-14.5) % Plt Count 289 (130-400) K/uL MPV 10.3 (7.4-10.4) fL Immature Gran % (Auto) 0.3 % Neut % (Auto) 79.2 % Lymph % (Auto) 11.8 % [place] % (Auto) 8.4 % Eos % (Auto) 0.2 % Baso % (Auto) 0.1 % Neut # (Auto) 9.29 H (1.4-6.5) K/uL Lymph # (Auto) 1.39 (1.2-3.4) K/uL [place] # (Auto) 0.99 H (0.11-0.59) K/uL Eos # (Auto) 0.02 (0-0.5) K/uL Baso # (Auto) 0.01 (0-0.2) K/uL Immature Gran # (Auto) 0.03 H (0.00-0.02) K/uL RBC Morphology Unremarkable Sodium 133 L (136-145) mmol/L Potassium 4.3 (3.5-5.1) mmol/L Chloride 95 L (98-107) mmol/L Carbon Dioxide 24 (21-32) mmol/L Anion Gap 14 H (3-11) BUN 10 (6-23) mg/dl Creatinine 0.74 (0.6-1.4) mg/dl Est Cr Clr Drug Dosing 93.7 ml/min Est GFR ( Amer) 106.1 ml/min Est GFR (Non-Af Amer) 91.5 ml/min BUN/Creatinine Ratio 13.5 (10-20) Glucose 345 H* (70-99(Fasting)) mg/dl Lactate (0.4-2.0) mmol/L Calcium 9.2 (8.5-10.1) mg/dl Magnesium 1.7 (1.7-2.4) mg/dl Total Bilirubin 1.0 (0.2-1.0) mg/dl AST 19 (13-39) U/L ALT 20 (7-52) U/L Alkaline Phosphatase 65 (34-104) U/L Troponin I < 0.03 (0-0.04) ng/ml Total Protein 7.7 (6.0-8.3) gm/dl Albumin 3.6 (3.4-5.0) gm/dl Globulin 4.1 H (2.5-4.0) gm/dl Albumin/Globulin Ratio 0.9 (0.9-2) Procalcitonin 0.14 (0-0.5) ng/ml 10/09/21 10/09/21 Range/Units 00:53 03:45 WBC (4.8-10.8) K/uL RBC (4.7-6.1) M/uL Hgb (14.0-18.0) g/dL Hct (42-52) % MCV (80-100) fL MCH (25-34) pg MCHC (32-36) g/dL RDW Std Deviation (36.4-46.3) fL RDW Coeff of Donna (11.5-14.5) % Plt Count (130-400) K/uL MPV (7.4-10.4) fL Immature Gran % (Auto) % Neut % (Auto) % Lymph % (Auto) % [place] % (Auto) % Eos % (Auto) % Baso % (Auto) % Neut # (Auto) (1.4-6.5) K/uL Lymph # (Auto) (1.2-3.4) K/uL [place] # (Auto) (0.11-0.59) K/uL Eos # (Auto) (0-0.5) K/uL Baso # (Auto) (0-0.2) K/uL Immature Gran # (Auto) (0.00-0.02) K/uL RBC Morphology Sodium 133 L (136-145) mmol/L Potassium 4.1 (3.5-5.1) mmol/L Chloride 98 (98-107) mmol/L Carbon Dioxide 25 (21-32) mmol/L Anion Gap 10 (3-11) BUN 9 (6-23) mg/dl Creatinine 0.56 L (0.6-1.4) mg/dl Est Cr Clr Drug Dosing 123.8 ml/min Est GFR ( Amer) 118.9 ml/min Est GFR (Non-Af Amer) 102.6 ml/min BUN/Creatinine Ratio 16.1 (10-20) Glucose 288 H (70-99(Fasting)) mg/dl Lactate 2.0 (0.4-2.0) mmol/L Calcium 8.6 (8.5-10.1) mg/dl Magnesium (1.7-2.4) mg/dl Total Bilirubin (0.2-1.0) mg/dl AST (13-39) U/L ALT (7-52) U/L Alkaline Phosphatase (34-104) U/L Troponin I (0-0.04) ng/ml Total Protein (6.0-8.3) gm/dl Albumin (3.4-5.0) gm/dl Globulin (2.5-4.0) gm/dl Albumin/Globulin Ratio (0.9-2) Procalcitonin (0-0.5) ng/ml Imaging Data My Impression: X-ray: I interpreted the following studies. Chest: A single view study of the chest was reviewed and was negative for cardiomegaly, effusion, pulmonary edema, or wide mediastinum. Scattered bilateral infiltrates consistent with likely Covid pneumonia. Radiologist's Impression: CTA chest: Multiple confluent groundglass opacities consistent with multifocal pneumonitis. Atherosclerotic disease of aorta with no aneurysm. Normal enhancement of the pulmonary arteries with no filling defect to suggest pulmonary embolus. Multilevel degenerative disease of the spine. Upper abdomen reveal small stones within the gallbladder with possible mild diffuse fatty liver. There is mild hiatal hernia. Radiologist: Chantell Lopez MD MDM Narrative This is a 81 yo male who presents with respiratory distress and significant hypoxia with increased WOB and tachycardia. Patient immediately provided supplemental oxygen. On my exam when patient placed in a room, neb treatment given with moderate sucess. Additional neb with added success, repeat lung exam improved, decreased WOB, improved tachycardia, and pt reported feeling improved. CXR consistent with COVID. Tachycardia persistent, although improved. Given recent COVID, pt sent for CTA chest in addition. Labs with hyperglycemia, mild AG, however repeat after IVF and insulin was improved. I do not suspect overt DKA. NO evidence of CHRISTOFER. Case discussed with hospitalist for additional evaluation. An order was placed for continuous cardiac monitoring. The monitor shows a rate of _105_ with _sinus tachycardia_ rhythm. Impression & Plan Acute dyspnea, COVID, Hypoxemia, Pneumonia, Acute hyperglycemia Discharge Plan Visit Data Chief Complaint: Shortness of Breath/Dyspnea Stated Complaint: SOB, FEVER, COUGH, ED Provider: Pheasant,Dafne S. Discharge Problem: Acute dyspnea, COVID, Hypoxemia, Pneumonia, Acute hyperglycemia Discharge Problem: Pneumonia Qualifiers: Pneumonia type: due to unspecified organism Laterality: bilateral Lung location: unspecified part of lung Qualified Code(s): J18.9 - Pneumonia, unspecified organism
[2021-10-08 23:42] LABS: Basophils # (auto) 0.01 K/uL (0-0.2); Basophils % (auto) 0.1 %; Eosinophils # (auto) 0.02 K/uL (0-0.5); Eosinophils % (auto) 0.2 %; Immature Granulocytes # (auto) 0.03 K/uL (0.00-0.02); Immature Granulocytes % (auto) 0.3 %; Lymphocytes # (auto) 1.39 K/uL (1.2-3.4); Lymphocytes % (auto) 11.8 %; Monocytes # (auto) 0.99 K/uL (0.11-0.59); Monocytes % (auto) 8.4 %; Neutrophils # (auto) 9.29 K/uL (1.4-6.5); Neutrophils % (auto) 79.2 %; RBC Morphology Unremarkable
[2021-10-08 23:50] LABS: Troponin I < 0.03 ng/ml (0-0.04)
[2021-10-09 00:08] LABS: Alanine Aminotransferase 20 U/L (7-52); Albumin Globulin Ratio 0.9 (0.9-2); Albumin Level 3.6 gm/dl (3.4-5.0); Alkaline Phosphatase 65 U/L (34-104); Anion Gap 14 (3-11); Aspartate Aminotransferase 19 U/L (13-39); BUN Creatinine Ratio 13.5 (10-20); Blood Urea Nitrogen 10 mg/dl (6-23); Calcium 9.2 mg/dl (8.5-10.1); Carbon Dioxide 24 mmol/L (21-32); Chloride 95 mmol/L (98-107); Creatinine Clr Calc Pharmacy 93.7 ml/min; Est GFR (African American) 106.1 ml/min; Est GFR (Non-African American) 91.5 ml/min; Globulin 4.1 gm/dl (2.5-4.0); Glucose 345 mg/dl (70-99(Fasting)); Magnesium 1.7 mg/dl (1.7-2.4); Potassium 4.3 mmol/L (3.5-5.1); Sodium 133 mmol/L (136-145); Total Protein 7.7 gm/dl (6.0-8.3)
[2021-10-09] MEDS ORDERED: NovoLIN-R INSULIN PER UNIT CHARGE SC STA (00:21)
[2021-10-09] MEDS ORDERED: OPTIRAY 320 125ml IV ONE (01:47)
[2021-10-09] MEDS: SODIUM CHLORIDE 0.9% 1000ML 1,000 ML IV SCH ×2 (02:19→13:05)
[2021-10-09 04:27] LABS: BUN Creatinine Ratio 16.1 (10-20); Calcium 8.6 mg/dl (8.5-10.1); Creatinine Clr Calc Pharmacy 123.8 ml/min; Est GFR (African American) 118.9 ml/min; Est GFR (Non-African American) 102.6 ml/min; Potassium 4.1 mmol/L (3.5-5.1)
[2021-10-09] MEDS ORDERED: cefTRIAXone SODIUM 1000MG/50ML D5W IV ONE (06:26)
[2021-10-09] MEDS: cefTRIAXone SODIUM 1,000 MG in DEXTROSE 5% 50 ML IV SCH (06:30)
--- NOTE | 2021-10-09 06:50 | CT Scan Report ---
CT ANGIOGRAPHY OF THE CHEST, PULMONARY EMBOLUS PROTOCOL CLINICAL HISTORY: Fever. Shortness of breath. Evaluate for pulmonary embolus. COMPARISON STUDY: Chest CT December 16, 2014. Chest radiograph October 08, 2021. TECHNIQUE: Following IV administration of 117 mL of Optiray, helical axial images of the chest were o btained utilizing the pulmonary embolus protocol. Maximal intensity projections and sagittal and cor onal reformats were viewed on an independent 3D workstation. IV contrast was administered without co mplication. Automated exposure control was utilized for the study. A dose lowering technique was ut ilized adhering to the principles of ALARA. CT DOSE: 487.39 mGy.cm FINDINGS: No pulmonary emboli are identified. There is no thoracic aortic dissection. There is mild cardiomegaly. No pericardial effusion is present. Note is made of circumferential wall thickening of the mid to distal esophagus. There is probable small hiatal hernia. Mildly enlarged right hilar lymph nodes are present. No pneumothorax or pleural effusion is noted. Extensive multifocal groundglass op acities and consolidation within the lungs are noted. Central airways are patent. There is no cavitat ion. Visualized portions of the upper abdomen demonstrate gallstones within the gallbladder. Hepatic steatosis. Hypodense right hepatic lobe lesion is similar to prior exam. This is benign. IMPRESSION: 1. No pulmonary emboli identified. 2. Extensive multifocal consolidation and groundglass opacities within the lungs consistent with pneu monia. 2. Mildly enlarged right hilar lymph nodes which are likely reactive. 4. Circumferential wall thickening of the mid to distal esophagus. This is nonspecific but may reflec t esophagitis. Small hiatal hernia. 5. Cholelithiasis. ACT 112: Negative or not required by law. Electronically signed by: Sean Ludwig M.D. 10/09/2021 6:49 AM
--- NOTE | 2021-10-09 07:18 | XRay Report ---
SINGLE VIEW CHEST CLINICAL HISTORY: Sepsis. FINDINGS: An AP, portable, upright chest radiograph is compared to study dated large pleural effusion or 09/27/2021. The heart is enlarged. There are low lung volumes. Extensive/multifocal airspace conso lidation is seen throughout both lungs. No pneumothorax is seen. The skeletal structures are osteopen ic. The bony thorax is grossly intact. IMPRESSION: Extensive/multifocal airspace consolidation is seen throughout both lungs and is typical for pneumonia. Radiographic follow-up to resolution is recommended. ACT 112: Negative or not required by law. Electronically signed by: Al Staley M.D. 10/09/2021 7:16 AM
[2021-10-09 07:37] LABS: Influenza A virus by PCR Negative (Neg); Influenza B virus by PCR Negative (Neg); RSV by PCR Negative (Neg)
[2021-10-09 07:51] LABS: SARS CoV2 RNA(COVID-19) InHosp POSITIVE (Negative)
[2021-10-09] MEDS ORDERED: LEVALBUTEROL HCL 1.25 MG/3 ML NEB NEB PRN (08:31)
[2021-10-09] MEDS ORDERED: guaiFENesin 200 MG TAB PO PRN (08:31)
[2021-10-09] MEDS ORDERED: ACETAMINOPHEN 325 MG TAB PO PRN (08:31)
[2021-10-09] MEDS ORDERED: NITROGLYCERIN SL 0.4 MG/TAB TAB SL PRN (08:31)
[2021-10-09] MEDS: DOXYCYCLINE HYCLATE 100 MG in DEXTROSE 5% 100 ML IV SCH ×2 (08:43→21:43)
--- NOTE | 2021-10-09 08:54 | History and Physical Report ---
DATE OF ADMISSION: 10/09/2021. CHIEF COMPLAINT: Shortness of breath. HISTORY OF PRESENT ILLNESS: This is a 75-year-old male with past medical history significant for diabetes, diabetic polyneuropathy, osteoarthritis. Chews tobacco. Was recently in the hospital for COVID pneumonia treated with IV dexamethasone and was discharged home, comes back with shortness of breath. The patient states after going home couple of days later felt short of breath, had a lot of cough. Could not breath. When he came in, in the ER, initially he was saturating only 79% and currently is on high-flow. Denies any chest pain . Says poor appetite. Denies any other complaints. No headache, no blurred visions, no earache, no runny nose, no sore throat, no nausea, no vomiting, no chest pain, no abdominal pain, no diarrhea, no constipation. Normal bladder movements. ALLERGIES: No known drug allergies. PAST MEDICAL HISTORY: As mentioned above. PAST SURGICAL HISTORY: Colonoscopy. MEDICATIONS: Aspirin 81 mg p.o. daily, Flonase 2 sprays intranasal daily, glipizide 10 mg p.o. b.i.d., guaifenesin 1200 mg p.o. q. 6 hours p.r.n., metformin 1000 mg 1 tablet b.i.d., he takes half tablet with lunch, metoprolol succinate 25 mg p.o. daily, multivitamin 1 tablet p.o. daily, [place] fish oil 3 times a week, Protonix 40 mg p.o. b.i.d., simvastatin 80 mg p.o. at bedtime, Trulicity 3 mg subcutaneous weekly. FAMILY HISTORY: Significant for brother had colon cancer. Father had colon cancer, stroke, diabetes, pacemaker. Mother had breast cancer. Sister has diabetes. SOCIAL HISTORY: , no smoking history. Chews tobacco. No alcohol use. No drug use. REVIEW OF SYSTEMS: As per HPI. Rest of the review of systems is negative. PHYSICAL EXAMINATION: GENERAL: The patient is of moderate build, not in acute distress. VITAL SIGNS: Temperature 36.3, pulse 80, respiratory rate 18, blood pressure 114/74, oxygen 98% on high flow. HEENT: Pupils equal, round and reactive to light. NECK: No JVD. No neck masses. CARDIOVASCULAR: S1 and S2 heard. Regular rate and rhythm. No murmur, no gallop. RESPIRATORY SYSTEM: Normal AP diameter. No accessory muscle use. No wheezing. Mild bibasilar crackles. ABDOMEN: Soft, bowel sounds present, nontender, no distention. CENTRAL NERVOUS SYSTEM: Cranial nerves II-XII grossly intact, nonfocal. EXTREMITIES: No edema, no erythema. LABORATORY DATA: WBC 11.7, hemoglobin 15.6, hematocrit 45.5, platelets 289. Sodium 133, potassium 4.1, chloride 98, bicarbonate 25, BUN 9, creatinine 0.5, serum glucose 288. Lactate 2, calcium 8.6, magnesium 1.7, total bilirubin 1, AST 19, ALT 20, alkaline phosphatase 65. Troponin I less than 0.03. Procalcitonin 0.18. CTA chest, no PE, but basilar bilateral opacities. Chest x- ray, bilateral opacities, pulmonary congestion. EKG: Sinus tachycardia at a rate of 113. No significant change was found. ASSESSMENT AND PLAN: This 75-year-old male who has recently had COVID pneumonia, presents again with hypoxia. 1. Hypoxia, recent COVID pneumonia requiring high-flow oxygen. The patient was recently on Decadron. We will empirically place him on Rocephin and doxycycline and consult Pulmonary. Closely monitor in the [employer] tele. 2. Diabetes: Hold home medication of Lantus insulin sliding scale and adjust the insulin regimen. 3. Hyperlipidemia: On statin. 4. Hypertension: On Toprol-XL. 5. Deep venous thrombosis prophylaxis: Lovenox. DISPOSITION: Closely monitor in the [facility] [employer] tele. PT/OT prior to discharge. Social service to help with discharge planning. Job ID: [id number] [facility] [place] DIVISIONKathrin
[2021-10-09] MEDS ORDERED: INSULIN GLARGINE SOLOSTAR 100 UNITS/ML 3 ML PEN SC SCH (09:00)
[2021-10-09] MEDS: ENOXAPARIN INJ 40 MG/0.4 ML SYR SQ SCH (10:03)
[2021-10-09] MEDS: ASPIRIN 81 MG ECTAB PO SCH (10:03)
[2021-10-09] MEDS: PANTOprazole 40 MG TAB PO SCH ×2 (10:04→21:44)
[2021-10-09] MEDS: METOPROLOL SUCC 25MG EXT REL TAB PO SCH (10:04)
[2021-10-09] MEDS: MULTIVITAMIN TAB PO SCH (10:04)
[2021-10-09] MEDS: INSULIN ASPART PER UNIT SC SCH ×4 (10:11→21:58)
[2021-10-09] MEDS: FLUTICASONE PROPIONATE NA SPR 16 GM BTL SCH (10:11)
[2021-10-09 11:22] LABS: Base Excess ABG 1.1 mEq/L (-9-1.8); HCO3 ABG 25 mmol/L (19-24); Oxygen Saturation ABG 97.3 % (90-95); PCO2 ABG 35 mmHg (35-46); PO2 ABG 92 mmHg (80-95); pH ABG 7.46 (7.35-7.45)
[2021-10-09 11:41] LABS: Albumin Level 3.2 gm/dl (3.4-5.0); Bilirubin Direct 0.2 mg/dl (0-0.2); Bilirubin,Total 0.7 mg/dl (0.2-1.0); C Reactive Protein 16.36 mg/dl (0-0.5); Total Protein 6.6 gm/dl (6.0-8.3)
--- NOTE | 2021-10-09 12:05 | Pulmonary Consultation ---
Date of Consultation October 09, 2021 Assessment & Plan (1) Pneumonia due to COVID-19 virus: (2) Hypoxemia: (3) GERD (gastroesophageal reflux disease): (4) DM type 2 (diabetes mellitus, type 2): Attending: Dr. George Impression: 75-year-old male with nonproductive cough which started in the middle of August. Patient was then admitted 09/27/2021 and found to be positive for COVID-19. He received dexamethasone and seemed to do better with no hypoxia on room air. He was discharged home on a prednisone taper. Over the last few days his shortness of breath is worsened. He presents for further evaluation and treatment. He now requires BiPAP therapy for noninvasive rob tilation. At this time he is a full code and would like to further discuss endotracheal intubation with mechanical ventilation once labs are back. Recommendations: 1. COVID-19 * CTA of the chest is negative for pulmonary emboli. There is evidence of multifocal pneumonia consistent with viral pneumonia specifically with a COVID-19 pattern * Patient was admitted 09/27 to 09/28/2021. He did not receive remdesivir as symptoms started in mid August * Patient currently not on any steroids * Patient was empirically started on ceftriaxone and doxycycline although his procalcitonin was negative * Will check CRP, ferritin level, LFTs, ABGs * Will empirically start the patient back on dexamethasone (long acting steroid) as he was essentially only on prednisone (intermediate acting steroid) with his recent admission. * Based on CRP, ferritin, ABGs, consider endotracheal intubation with mechanical ventilation if patient does not show improvement 2. Hypoxia * Most likely secondary to COVID-19 multifocal pneumonia * Treat as above * Maintain SaO2 greater than 90% 3. Pneumonia * Patient was started empirically on ceftriaxone and doxycycline although procalcitonin was negative * Doubt secondary bacterial infection and review of chest x-ray and CTA of chest * Most likely viral secondary to COVID-19 * Continue to provide supportive care If the patient worsens he may require mechanical ventilation support. Should clarify patient's understanding of mechanical ventilation leading to surgical tracheostomy leading to long-term ventilation. Thank you for including us in the care of this patient. Please refer to Dr. George's addendum for further recommendations. 60 minutes of critical care time was spent on this patient due to risk of loss of life or limb illness requiring noninvasive mechanical ventilation. History of Present Illness Reason for Consultation: Hypoxia with Covid pneumonia Attending Physician: Juanito Dao DO History of Present Illness Attending: Dr. George This is a 75-year-old male with a past medical history including GERD, osteoarthritis, dyslipidemia, diabetes mellitus type 2, diabetic polyneuropathy, nicotine dependence with smokeless tobacco. Patient presents for shortness of breath and is found to be hypoxic. He is positive for Covid 19. Patient reports that his symptoms initially started in the middle of August with a dry cough. These escalated to the point where he presented to the emergency department 09/27/2021 and was admitted for COVID-19. He was started on dexamethasone and supplemental oxygen. He did not receive remdesivir due to the length of symptoms. Patient was then discharged on 09/28/2021 on a prednisone taper and seemed to be doing better for the last few days. He then developed more shortness of breath and presented last night for evaluation. Patient currently failed supplemental oxygen via nasal cannula and high flow. He currently is on CPAP with an FiO2 of 70%. Settings are 12/5 with a backup rate of 12. Patient is now saturating in the upper 90s with the assistance of BiPAP. Patient denies any fever or chills. No rigors. He does have a nonproductive cough. He denies nausea, vomiting, diarrhea. He has no chest pain or tightness. His only complaint is shortness of breath and hypoxia. Patient reports he is vaccinated for influenza but did not receive any vaccinations for COVID-19. Patient lives at home with his . He does desire to be a full code. Allergies Allergy/AdvReac Type Severity Reaction Status Date / Time No Known Allergies Allergy Unverified 02/28/16 17:43 Home Medications Medication Instructions Recorded Confirmed Type aspirin 81 mg tablet 81 mg PO DAILY 09/27/21 10/09/21 History dulaglutide 3 mg/0.5 mL 3 mg SUBCUT WK 09/27/21 10/09/21 History subcutaneous pen injector (Trulicity) fluticasone propionate 50 2 spray INTRANASAL DAILY 09/27/21 10/09/21 History mcg/actuation nasal spray,suspension glipizide 10 mg tablet 10 mg PO BID 09/27/21 10/09/21 History metformin 1,000 mg tablet 1,000 mg PO UD 09/27/21 10/09/21 History metoprolol succinate 25 mg 25 mg PO DAILY 09/27/21 10/09/21 History tablet,extended release 24 hr multivitamin 1 tab PO DAILY 09/27/21 10/09/21 History omega-3s 300 [id number] 1 cap PO 3XWK 09/27/21 10/09/21 History [id number] oil 1,000 mg capsule ([place]-3 Fish Oil) pantoprazole 40 mg tablet,delayed 40 mg PO BID 09/27/21 10/09/21 History release simvastatin 80 mg tablet 80 mg PO HS 09/27/21 10/09/21 History guaifenesin 200 mg tablet 200 mg PO Q6H PRN #30 tab 09/28/21 10/09/21 Rx Patient History Medical History Anxiety Calculus of gallbladder Diabetic polyneuropathy DM type 2 (diabetes mellitus, type 2) Dyslipidemia GERD (gastroesophageal reflux disease) Hx of adenomatous polyp of colon Hx of basal cell carcinoma Osteoarthritis Surgical History H/O colonoscopy Family History Father Colorectal cancer Diabetes Heart disease Brother Colorectal cancer Mother Breast cancer Sister Diabetes Social History Smoking Status: Unknown if ever smoked Tobacco Type: Smokeless Tobacco (Dip or Chew) Hx Alcohol Use: Yes Alcohol type: beer Hx Substance Use: No Preferred Language: Bahamian Communication Ability: Effective Building Construction Contractor Required: No Beliefs That Will Affect Care: None marital status: Current Living Situation: Spouse 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 BiPAP in place EYES: No icterus, gaze conjugate. Pupils equal and round NOSE: No evidence of epistaxis MOUTH: No lesions or candidiasis. BiPAP in place with minimal mask leak NECK: Supple LUNGS: Scattered rales. No bronchospasm appreciated. No rhonchi appreciated. HEART: Regular, rate is in the 90s ABDOMEN: Soft, NT, ND, BS Present EXTREMITIES: No LE edema, pedal pulses intact NEURO: A&OX3 Results & Data Results & Data ([facility]) Vital Signs (Past 12 Hours) Vital Signs Temp Pulse Pulse Resp BP Pulse Ox 10/09/21 10:50 37.4 C 95 H 43 H 121/73 97 10/09/21 10:49 45 H 97 10/09/21 09:23 88 35 H 119/74 97 10/09/21 09:16 90 37 H 99 10/09/21 07:15 89 20 90 10/09/21 06:46 96 10/09/21 06:13 98 10/09/21 05:33 88 114/74 95 10/09/21 04:52 18 90 10/09/21 04:38 86 L 10/09/21 04:06 93 10/09/21 03:21 93 10/09/21 03:08 92 10/09/21 00:24 114 H 141/84 H 94 10/09/21 00:23 94 10/09/21 00:19 115 H 94 Laboratory Results 10/08/21 22:40 10/09/21 03:45 COVID-19 Results 10/09/21 Unknown SARS-CoV-2 (PCR) POSITIVE A* Diagnostic Findings Chest X-Ray 10/08/21 23:11 SINGLE VIEW CHEST CLINICAL HISTORY: Sepsis. FINDINGS: An AP, portable, upright chest radiograph is compared to study dated large pleural effusion or 09/27/2021. The heart is enlarged. There are low lung volumes. Extensive/multifocal airspace consolidation is seen throughout both lungs. No pneumothorax is seen. The skeletal structures are osteopenic. The bony thorax is grossly intact. IMPRESSION: Extensive/multifocal airspace consolidation is seen throughout both lungs and is typical for pneumonia. Radiographic follow-up to resolution is recommended. ACT 112: Negative or not required by law. Electronically signed by: Al Staley M.D. 10/09/2021 7:16 AM Chest CTA 10/09/21 00:48 CT ANGIOGRAPHY OF THE CHEST, PULMONARY EMBOLUS PROTOCOL CLINICAL HISTORY: Fever. Shortness of breath. Evaluate for pulmonary embolus. COMPARISON STUDY: Chest CT December 16, 2014. Chest radiograph October 08, 2021. TECHNIQUE: Following IV administration of 117 mL of Optiray, helical axial images of the chest were obtained utilizing the pulmonary embolus protocol. Maximal intensity projections and sagittal and coronal reformats were viewed on an independent 3D workstation. IV contrast was administered without complication. Automated exposure control was utilized for the study. A dose lowering technique was utilized adhering to the principles of ALARA. CT DOSE: 487.39 mGy.cm FINDINGS: No pulmonary emboli are identified. There is no thoracic aortic dissection. There is mild cardiomegaly. No pericardial effusion is present. Note is made of circumferential wall thickening of the mid to distal esophagus. There is probable small hiatal hernia. Mildly enlarged right hilar lymph nodes are present. No pneumothorax or pleural effusion is noted. Extensive multifocal groundglass opacities and consolidation within the lungs are noted. Central airways are patent. There is no cavitation. Visualized portions of the upper abdomen demonstrate gallstones within the gallbladder. Hepatic steatosis. Hypo dense right hepatic lobe lesion is similar to prior exam. This is benign. IMPRESSION: 1. No pulmonary emboli identified. 2. Extensive multifocal consolidation and groundglass opacities within the lungs consistent with pneumonia. 2. Mildly enlarged right hilar lymph nodes which are likely reactive. 4. Circumferential wall thickening of the mid to distal esophagus. This is nonspecific but may reflect esophagitis. Small hiatal hernia. 5. Cholelithiasis. ACT 112: Negative or not required by law. Electronically signed by: Sean Ludwig M.D. 10/09/2021 6:49 AM PG Care Time/CCT Total # of Minutes Spent Total Time Spent with Patient: Total time spent is greater than 50% in coordination of care (as documented) at patient's floor/unit and/or counseling patient: Coding Level of Care Code Critical Care 1st 30-74 mins Diagnoses Pneumonia due to COVID-19 virus U07.1; J12.82 Hypoxemia R09.02 GERD (gastroesophageal reflux disease) K21.9 DM type 2 (diabetes mellitus, type 2) E11.9 Time Spent (min) 60
--- NOTE | 2021-10-09 12:13 | Electrocardiogram Report ---
Test Reason : Blood Pressure : / mmHG Vent. Rate : 113 BPM Atrial Rate : 113 BPM P-R Int : 172 ms QRS Dur : 094 ms QT Int : 334 ms P-R-T Axes : 044 -18 005 degrees QTc Int : 458 ms Poor data quality, interpretation may be adversely affected Sinus tachycardia Inferior infarct , age undetermined Poor R wave progression, consider anterior [place] vs. lead placement vs. LVH Abnormal ECG When compared with ECG of 27-SEP-2021 10:32, No significant change was found Confirmed by Tim Pollard ([id number]) on 10/09/2021 12:13:28 PM Referred By: REFERRED SELF Confirmed By:Alexandre Pollard
[2021-10-09 12:21] LABS: Ferritin 174.2 ng/ml (8-388)
[2021-10-09 12:33] LABS: Allen Test Pos (Pos)
[2021-10-09] MEDS: dexAMETHasone 6 MG in SYRINGE 0 ML IV SCH (12:51)
[2021-10-09] MEDS: LEVALBUTEROL HCL 1.25 MG/3 ML NEB NEB SCH ×2 (12:55→19:13)
[2021-10-09 20:13] LABS: Appearance Urine Clear (Clear); Bacteria Urine Automated Negative (Negative); Bilirubin Urine Negative (Negative); Blood Urine Negative (Negative); Color Urine Dark Yellow; Glucose Urine UA 3+ (Negative); Ketones Urine 2+ (Negative); Leukocyte Esterase Urine Negative (Negative); Nitrite Urine Negative (Negative); Protein Urine 1+ (Negative); RBC Urine Automated 0-4 /hpf (0-4); Specific Gravity Urine > 1.045 (1.000-1.030); Urobilinogen Urine Negative (Negative)
[2021-10-09] MEDS: INSULIN HUMAN NPH SC SCH (20:47)
[2021-10-09] MEDS: SIMVASTATIN 80 MG TAB PO SCH (21:43)
[2021-10-10] MEDS: LEVALBUTEROL HCL 1.25 MG/3 ML NEB NEB SCH ×4 (00:08→19:12)
[2021-10-10 05:58] LABS: Eosinophils # (auto) 0.02 K/uL (0-0.5); Eosinophils % (auto) 0.2 %; Hematocrit (blood only) 41.9 % (42-52); Immature Granulocytes # (auto) 0.02 K/uL (0.00-0.02); Immature Granulocytes % (auto) 0.2 %; Lymphocytes # (auto) 1.07 K/uL (1.2-3.4); Lymphocytes % (auto) 12.5 %; Mean Corpuscular Hemoglobin 30.4 pg (25-34); Mean Corpuscular Hgb Conc 33.4 g/dL (32-36); Mean Corpuscular Volume 91.1 fL (80-100); Mean Platelet Volume 10.1 fL (7.4-10.4); Monocytes # (auto) 0.81 K/uL (0.11-0.59); Monocytes % (auto) 9.5 %; Neutrophils # (auto) 6.62 K/uL (1.4-6.5); Neutrophils % (auto) 77.6 %; Platelet Count 284 K/uL (130-400); RDW Coefficient of Variation 13.3 % (11.5-14.5); RDW Standard Deviation 43.8 fL (36.4-46.3); White Blood Count 8.54 K/uL (4.8-10.8)
[2021-10-10 06:04] LABS: Albumin Globulin Ratio 0.8 (0.9-2); Albumin Level 3.2 gm/dl (3.4-5.0); BUN Creatinine Ratio 22.7 (10-20); Bilirubin,Total 0.7 mg/dl (0.2-1.0); Calcium 8.9 mg/dl (8.5-10.1); Creatinine Clr Calc Pharmacy 105.1 ml/min; Est GFR (African American) 111.2 ml/min; Est GFR (Non-African American) 95.9 ml/min; Globulin 3.8 gm/dl (2.5-4.0); Magnesium 1.9 mg/dl (1.7-2.4); Potassium 4.3 mmol/L (3.5-5.1)
[2021-10-10] MEDS: DOXYCYCLINE HYCLATE 100 MG in DEXTROSE 5% 100 ML IV SCH ×2 (06:25→20:21)
[2021-10-10] MEDS: cefTRIAXone SODIUM 1,000 MG in DEXTROSE 5% 50 ML IV SCH (06:26)
[2021-10-10 07:07] LABS: Estimated Average Glucose 229 mg/dl; Hemoglobin A1C 9.6 % (4.5-5.6)
[2021-10-10] MEDS: ENOXAPARIN INJ 40 MG/0.4 ML SYR SQ SCH (08:44)
[2021-10-10] MEDS: FLUTICASONE PROPIONATE NA SPR 16 GM BTL SCH (08:44)
[2021-10-10] MEDS: INSULIN HUMAN NPH SC SCH (08:46)
[2021-10-10] MEDS: PANTOprazole 40 MG TAB PO SCH ×2 (08:47→22:16)
[2021-10-10] MEDS: MULTIVITAMIN TAB PO SCH (08:47)
[2021-10-10] MEDS: ASPIRIN 81 MG ECTAB PO SCH (08:47)
[2021-10-10] MEDS: METOPROLOL SUCC 25MG EXT REL TAB PO SCH (08:47)
[2021-10-10] MEDS: INSULIN ASPART PER UNIT SC SCH ×4 (09:01→20:21)
[2021-10-10] MEDS ORDERED: DEXAMETHASONE SOD INJ 4 MG/ML VIAL ONE (13:47)
[2021-10-10] MEDS: dexAMETHasone 6 MG in SYRINGE 0 ML IV SCH (14:06)
--- NOTE | 2021-10-10 19:21 | Hospitalist Progress Note ---
Date of Service October 10, 2021 Assessment & Plan (1) Acute respiratory failure with hypoxia: (2) Pneumonia due to COVID-19 virus: Plan: 75-year-old male who has recently had COVID pneumonia, presents again with hypoxia 10/09. He is being managed for the following: #. Acute hypoxic respiratory failure #. Recent Covid pneumonia requiring high flow oxygen #. Likely superimposed bacterial pneumonia Patient has recent diagnosis of Covid, was discharged home, presented with increased shortness of breath and is requiring high flow oxygen Imaging is reviewed and is consistent with multifocal pneumonia Continue with dexamethasone 10/09, Rocephin 10/09, doxycycline 10/09. Pulmonary evaluated the patient: Started patient empirically pack and dexamethasone, doubt likely bacterial infection. Continue to monitor. Incentive spirometry. Proning as able. 2. Diabetes: Hold home medication of Lantus insulin sliding scale and adjust the insulin regimen. 3. Hyperlipidemia: On statin. 4. Hypertension: On Toprol-XL. 5. Deep venous thrombosis prophylaxis: Lovenox. Admission and Anticipated Discharge Date Admission Date: October 09, 2021 Subjective Patient was sitting up in bed, on high flow nasal cannula oxygen at 45 L, NAD, no new acute events overnight. Patient reports moving bowels okay. Patient was n.p.o., can start him on diet and advance as tolerated. Patient denies fever/chills/chest pain/palpitation/increased shortness of breath/belly pain/other review of symptoms. Physical Exam Physical Exam: GENERAL: Alert and oriented x3. NAD, on 45L HFNC HEENT: No pallor, no icterus. Pupils equal, round and reactive to light. Oral mucosa moist. NECK: No JVD, no neck masses. HEART: S1 and S2 heard. Regular rate and rhythm. No murmur, no gallop. RESPIRATORY SYSTEM: Normal AP diameter. No accessory muscle use. No wheezing, no crackles. Decreased breath sounds. ABDOMEN: Soft, bowel sounds present, nontender, no distention. CENTRAL NERVOUS SYSTEM: No facial droop. Speech is clear. Obeys simple commands. Moves extremities. EXTREMITIES: No edema, no erythema seen. Results & Data Results & Data ([facility]) Vital Signs (Past 12 Hours) Vital Signs Temp Pulse Pulse Resp BP BP Pulse Ox 10/10/21 19:17 37.1 C 84 18 111/71 96 10/10/21 19:12 86 20 97 10/10/21 16:20 36.4 C L 88 24 115/70 90 10/10/21 16:17 94 H 27 H 94 10/10/21 16:00 89 10/10/21 14:25 87 28 H 91 10/10/21 14:03 90 28 H 10/10/21 14:00 10/10/21 13:31 90 44 H 122/77 91 10/10/21 13:01 91 H 10 L 103/43 L 88 L 10/10/21 12:30 78 44 H 117/57 L 92 10/10/21 12:01 82 34 H 121/82 93 10/10/21 12:00 83 26 H 89 L 10/10/21 11:31 82 20 108/75 93 10/10/21 11:06 85 18 90 10/10/21 11:00 85 21 120/75 93 10/10/21 10:30 82 40 H 119/74 92 10/10/21 10:00 83 46 H 120/70 92 10/10/21 09:30 77 44 H 124/75 97 10/10/21 09:00 86 126/87 98 10/10/21 08:55 84 20 95 10/10/21 08:30 85 117/79 91 10/10/21 08:01 84 21 123/85 95 10/10/21 08:00 81 18 96 10/10/21 07:30 79 52 H 136/66 95 Pulse Ox 10/10/21 19:17 10/10/21 19:12 10/10/21 16:20 10/10/21 16:17 10/10/21 16:00 10/10/21 14:25 10/10/21 14:03 10/10/21 14:00 91 10/10/21 13:31 10/10/21 13:01 10/10/21 12:30 10/10/21 12:01 10/10/21 12:00 10/10/21 11:31 10/10/21 11:06 10/10/21 11:00 10/10/21 10:30 10/10/21 10:00 10/10/21 09:30 10/10/21 09:00 10/10/21 08:55 10/10/21 08:30 10/10/21 08:01 10/10/21 08:00 10/10/21 07:30
--- NOTE | 2021-10-10 19:38 | Pulmonology Progress Note ---
Date of Service October 10, 2021 Assessment & Plan (1) Pneumonia due to COVID-19 virus: (2) Hypoxemia: (3) GERD (gastroesophageal reflux disease): (4) DM type 2 (diabetes mellitus, type 2): Plan: Attending: Dr. George Impression: 75-year-old male with nonproductive cough which started in the middle of August. Patient was then admitted 09/27/2021 and found to be positive for COVID-19. He received dexamethasone and seemed to do better with no hypoxia on room air. He was discharged home on a prednisone taper. Over the last few days his shortness of breath is worsened. He presents for further evaluation and treatment. He now requires BiPAP therapy for noninvasive ventilation. At this time he is a full code. Recommendations: 1. COVID-19 * CTA of the chest is negative for pulmonary emboli. There is evidence of multifocal pneumonia consistent with viral pneumonia specifically with a COVID-19 pattern * Patient was admitted 09/27 to 09/28/2021. He did not receive remdesivir as symptoms started in mid August * Patient was empirically started on ceftriaxone and doxycycline although his procalcitonin was negative * CRP elevated at 16.36. Ferritin normal at 174.2. Procalcitonin negative at 0.14 * Will empirically start the patient back on dexamethasone (long acting steroid) as he was essentially only on prednisone (intermediate acting steroid) with his recent admission. Today is day 2 of 6 mg IV daily * Continue supportive care 2. Hypoxia * Most likely secondary to COVID-19 multifocal pneumonia * Treat as above * Maintain SaO2 greater than 90% 3. Pneumonia * Patient was started empirically on ceftriaxone and doxycycline although procalcitonin was negative * Doubt secondary bacterial infection as review of chest x-ray and CTA of chest suggest viral process * Continue to provide supportive care At this time, patient appears to be improving. The pulmonary service will sign off. If patient should worsen, consider consultation of intensive care staff for consideration of endotracheal intubation with mechanical ventilation. Admission and Anticipated Discharge Date Admission Date: October 09, 2021 Subjective Attending: Dr. George Patient seen and examined in room 262. He seems to be doing much better today. He is tolerating high flow supplemental oxygen. He is in no acute distress. Respiratory rate is 18. Oxygen saturation is 96%. Patient currently is on oxygen flow rate of 45 L/min with an FiO2 of 85%. He denies any fever or chills. No productive cough. He had no chest pain or tightness. Aside from shortness of breath, he has no acute complaints. Review of Systems Review of Systems: All systems reviewed & are unremarkable except as noted in Subjective Physical Exam Physical Exam: GENERAL : No acute distress EYES: No icterus, gaze conjugate NOSE: No evidence of epistaxis MOUTH: No lesions or candidiasis NECK: Supple LUNGS: Diminished breath sounds throughout HEART: Regular, rate controlled in the 80s. ABDOMEN: Soft, NT, ND, BS Present EXTREMITIES: No LE edema, pedal pulses intact NEURO: A&OX3 Results & Data Results & Data ([facility]) Vital Signs (Past 12 Hours) Vital Signs Temp Pulse Pulse Resp BP BP Pulse Ox 10/10/21 19:17 37.1 C 84 18 111/71 96 10/10/21 19:12 86 20 97 10/10/21 16:20 36.4 C L 88 24 115/70 90 10/10/21 16:17 94 H 27 H 94 10/10/21 16:00 89 10/10/21 14:25 87 28 H 91 10/10/21 14:03 90 28 H 10/10/21 14:00 10/10/21 13:31 90 44 H 122/77 91 10/10/21 13:01 91 H 10 L 103/43 L 88 L 10/10/21 12:30 78 44 H 117/57 L 92 10/10/21 12:01 82 34 H 121/82 93 10/10/21 12:00 83 26 H 89 L 10/10/21 11:31 82 20 108/75 93 10/10/21 11:06 85 18 90 10/10/21 11:00 85 21 120/75 93 10/10/21 10:30 82 40 H 119/74 92 10/10/21 10:00 83 46 H 120/70 92 10/10/21 09:30 77 44 H 124/75 97 10/10/21 09:00 86 126/87 98 10/10/21 08:55 84 20 95 10/10/21 08:30 85 117/79 91 10/10/21 08:01 84 21 123/85 95 10/10/21 08:00 81 18 96 Pulse Ox 10/10/21 19:17 10/10/21 19:12 10/10/21 16:20 10/10/21 16:17 10/10/21 16:00 10/10/21 14:25 10/10/21 14:03 10/10/21 14:00 91 10/10/21 13:31 10/10/21 13:01 10/10/21 12:30 10/10/21 12:01 10/10/21 12:00 10/10/21 11:31 10/10/21 11:06 10/10/21 11:00 10/10/21 10:30 10/10/21 10:00 10/10/21 09:30 10/10/21 09:00 10/10/21 08:55 10/10/21 08:30 10/10/21 08:01 10/10/21 08:00 Critical Care Results & Data Vital Signs (Past 12 Hours) Vital Signs Temp Pulse Pulse Resp BP BP Pulse Ox 10/10/21 19:17 37.1 C 84 18 111/71 96 10/10/21 19:12 86 20 97 10/10/21 16:20 36.4 C L 88 24 115/70 90 10/10/21 16:17 94 H 27 H 94 10/10/21 16:00 89 10/10/21 14:25 87 28 H 91 10/10/21 14:03 90 28 H 10/10/21 14:00 10/10/21 13:31 90 44 H 122/77 91 10/10/21 13:01 91 H 10 L 103/43 L 88 L 10/10/21 12:30 78 44 H 117/57 L 92 10/10/21 12:01 82 34 H 121/82 93 10/10/21 12:00 83 26 H 89 L 10/10/21 11:31 82 20 108/75 93 10/10/21 11:06 85 18 90 10/10/21 11:00 85 21 120/75 93 10/10/21 10:30 82 40 H 119/74 92 10/10/21 10:00 83 46 H 120/70 92 10/10/21 09:30 77 44 H 124/75 97 10/10/21 09:00 86 126/87 98 10/10/21 08:55 84 20 95 10/10/21 08:30 85 117/79 91 10/10/21 08:01 84 21 123/85 95 10/10/21 08:00 81 18 96 Pulse Ox 10/10/21 19:17 10/10/21 19:12 10/10/21 16:20 10/10/21 16:17 10/10/21 16:00 10/10/21 14:25 10/10/21 14:03 10/10/21 14:00 91 10/10/21 13:31 10/10/21 13:01 10/10/21 12:30 10/10/21 12:01 10/10/21 12:00 10/10/21 11:31 10/10/21 11:06 10/10/21 11:00 10/10/21 10:30 10/10/21 10:00 10/10/21 09:30 10/10/21 09:00 10/10/21 08:55 10/10/21 08:30 10/10/21 08:01 10/10/21 08:00 Lab & Micro Results (Past 24 Hours) RBC 4.60 M/uL (4.7-6.1) L 10/10/21 WBC 8.54 K/uL (4.8-10.8) 10/10/21 Hgb 14.0 g/dL (14.0-18.0) 10/10/21 Hct 41.9 % (42-52) L 10/10/21 MCV 91.1 fL (80-100) 10/10/21 MCH 30.4 pg (25-34) 10/10/21 MCHC 33.4 g/dL (32-36) 10/10/21 RDW Standard Deviation 43.8 fL (36.4-46.3) 10/10/21 RDW Coefficient of Variation 13.3 % (11.5-14.5) 10/10/21 Plt Count 284 K/uL (130-400) 10/10/21 MPV 10.1 fL (7.4-10.4) 10/10/21 Neutrophils (%) (Auto) 77.6 % 10/10/21 Lymphocytes (%) (Auto) 12.5 % 10/10/21 Monocytes # (Auto) 0.81 K/uL (0.11-0.59) H 10/10/21 Eosinophils # (Auto) 0.02 K/uL (0-0.5) 10/10/21 Immature Granulocyte % (Auto) 0.2 % 10/10/21 Neutrophils # (Auto) 6.62 K/uL (1.4-6.5) H 10/10/21 Lymphocytes # (Auto) 1.07 K/uL (1.2-3.4) L 10/10/21 Monocytes # (Auto) 0.81 K/uL (0.11-0.59) H 10/10/21 Eosinophils # (Auto) 0.02 K/uL (0-0.5) 10/10/21 Basophils # (Auto) 0.00 K/uL (0-0.2) 10/10/21 Immature Granulocyte # (Auto) 0.02 K/uL (0.00-0.02) 10/10/21 Na 136 mmol/L (136-145) 10/10/21 K 4.3 mmol/L (3.5-5.1) 10/10/21 Cl 100 mmol/L (98-107) 10/10/21 CO2 24 mmol/L (21-32) 10/10/21 Anion Gap 12 (3-11) H 10/10/21 BUN 15 mg/dl (6-23) 10/10/21 Creatinine 0.66 mg/dl (0.6-1.4) 10/10/21 Estimated GFR ( Amer) 111.2 ml/min 10/10/21 Estimated GFR (Non-Af Amer) 95.9 ml/min 10/10/21 BUN/Creatinine Ratio 22.7 (10-20) H 10/10/21 Glu 245 mg/dl (70-99(Fasting)) H 10/10/21 Ca 8.9 mg/dl (8.5-10.1) 10/10/21 Total Bilirubin 0.7 mg/dl (0.2-1.0) 10/10/21 AST 17 U/L (13-39) 10/10/21 ALT 14 U/L (7-52) 10/10/21 Alkaline Phosphatase 54 U/L (34-104) 10/10/21 TP 7.0 gm/dl (6.0-8.3) 10/10/21 Albumin 3.2 gm/dl (3.4-5.0) L 10/10/21 Globulin 3.8 gm/dl (2.5-4.0) 10/10/21 Albumin/Globulin Ratio 0.8 (0.9-2) L 10/10/21 Mg 1.9 mg/dl (1.7-2.4) 10/10/21 05:09 10/10/21 Calcium Level 8.9 mg/dl (8.5-10.1) 10/10/21 05:09 10/10/21 Microbiology 10/09/21 00:53 Aerobic Blood Culture - Preliminary Blood No growth in Aerobic bottle after 24 hours. Anaerobic Blood Culture - Preliminary No growth in Anaerobic bottle after 24 hours. 10/09/21 00:38 Aerobic Blood Culture - Preliminary Blood No growth in Aerobic bottle after 24 hours. Anaerobic Blood Culture - Preliminary No growth in Anaerobic bottle after 24 hours. I & O Totals 24 Hours 10/09/21 10/10/21 10/11/21 06:59 06:59 06:59 Intake Total 200 / 200 1220 / 1220 160 / 160 Output Total 800 / 800 700 / 700 Balance 200 / 200 420 / 420 -540 / -540 Cumulative 10/08/21 22:16 thru 10/10/21 16:14 Intake Total 1580 Output Total 1500 Balance 80 RT Ventilator Mngmt (Last Documented) Ventilator Ordered Settings Respiratory Rate 18 10/10/21 19:17 Fraction of Inspired Oxygen 85 10/10/21 19:12 Ventilator - PT Measurements Respiratory Rate 18 PG Care Time/CCT Total # of Minutes Spent Total Time Spent with Patient: Total time spent is greater than 50% in coordination of care (as documented) at patient's floor/unit and/or counseling patient: 30 minutes Coding Level of Care Code 90633 Subseq Hosp Care Lvl 2 Diagnoses Pneumonia due to COVID-19 virus U07.1; J12.82 Hypoxemia R09.02 GERD (gastroesophageal reflux disease) K21.9 DM type 2 (diabetes mellitus, type 2) E11.9 Time Spent (min) 30
[2021-10-10] MEDS: SIMVASTATIN 80 MG TAB PO SCH (22:16)
[2021-10-11] MEDS: cefTRIAXone SODIUM 1,000 MG in DEXTROSE 5% 50 ML IV SCH (06:24)
[2021-10-11 06:58] LABS: Hematocrit (blood only) 39.2 % (42-52); Hemoglobin 13.1 g/dL (14.0-18.0); Mean Corpuscular Hemoglobin 30.3 pg (25-34); Mean Corpuscular Hgb Conc 33.4 g/dL (32-36); Mean Corpuscular Volume 90.7 fL (80-100); Platelet Count 256 K/uL (130-400); RDW Coefficient of Variation 13.1 % (11.5-14.5); RDW Standard Deviation 43.2 fL (36.4-46.3); Red Blood Count 4.32 M/uL (4.7-6.1); White Blood Count 9.18 K/uL (4.8-10.8)
[2021-10-11] MEDS: DOXYCYCLINE HYCLATE 100 MG in DEXTROSE 5% 100 ML IV SCH ×2 (07:01→18:03)
[2021-10-11] MEDS: LEVALBUTEROL HCL 1.25 MG/3 ML NEB NEB SCH ×3 (07:17→12:07)
[2021-10-11 07:18] LABS: BUN Creatinine Ratio 27.9 (10-20); Calcium 8.7 mg/dl (8.5-10.1); Creatinine Clr Calc Pharmacy 113.7 ml/min; Est GFR (African American) 114.8 ml/min; Est GFR (Non-African American) 99.1 ml/min; Magnesium 1.8 mg/dl (1.7-2.4); Phosphorus 3.9 mg/dl (2.5-4.9)
[2021-10-11] MEDS: INSULIN HUMAN NPH SC SCH (08:20)
[2021-10-11] MEDS: INSULIN ASPART PER UNIT SC SCH ×4 (08:21→21:36)
[2021-10-11] MEDS: METOPROLOL SUCC 25MG EXT REL TAB PO SCH (08:22)
[2021-10-11] MEDS: MULTIVITAMIN TAB PO SCH (08:22)
[2021-10-11] MEDS: FLUTICASONE PROPIONATE NA SPR 16 GM BTL SCH (08:22)
[2021-10-11] MEDS: ASPIRIN 81 MG ECTAB PO SCH (08:22)
[2021-10-11] MEDS: PANTOprazole 40 MG TAB PO SCH ×2 (08:22→21:19)
[2021-10-11] MEDS: ENOXAPARIN INJ 40 MG/0.4 ML SYR SQ SCH (08:22)
[2021-10-11] MEDS: POLYETHYLENE (MIRALAX) 17 GM PACK PO SCH (11:02)
[2021-10-11] MEDS: dexAMETHasone 6 MG in SYRINGE 0 ML IV SCH (13:02)
--- NOTE | 2021-10-11 15:12 | Hospitalist Progress Note ---
Date of Service October 11, 2021 Assessment & Plan (1) Acute respiratory failure with hypoxia: (2) Pneumonia due to COVID-19 virus: Plan: 75-year-old male who has recently had COVID pneumonia, presents again with hypoxia 10/09. He is being managed for the following: #. Acute hypoxic respiratory failure #. Recent Covid pneumonia requiring high flow oxygen #. Likely superimposed bacterial pneumonia Patient has recent diagnosis of Covid, was discharged home, presented with increased shortness of breath and is requiring high flow oxygen Imaging is reviewed and is consistent with multifocal pneumonia Continue with dexamethasone 10/09, Rocephin 10/09, doxycycline 10/09. Pulmonary evaluated the patient: Started patient empirically back on dexamethasone. Patient reports feeling better, afebrile, WBC WNL. Continue to monitor. Incentive spirometry. Proning as able. 2. Diabetes: Hold home medication of Lantus insulin sliding scale and adjust the insulin regimen. 3. Hyperlipidemia: On statin. 4. Hypertension: On Toprol-XL. 5. Deep venous thrombosis prophylaxis: Lovenox. Full code DVT prophylaxis: Enoxaparin Disposition: Uncertain, patient requiring high flow oxygen. Admission and Anticipated Discharge Date Admission Date: October 09, 2021 Subjective Patient seen and examined at bedside for likely superimposed bacterial pneumonia versus continued worsening of his recent diagnosis of Covid pneumonia. Patient was lying in bed, on 15 L oxygen via oxygen mask, NAD, no new acute events overnight. Patient reports feeling better. Patient reports eating okay but has not moved bowels since hospitalization. Will add bowel regimen. Patient reports no fever/chills/chest pain/palpitations/belly pain/other review of symptoms. Physical Exam Physical Exam: GENERAL: Alert and oriented x3. NAD, on 15 L via Oxymask HEENT: No pallor, no icterus. Pupils equal, round and reactive to light. Oral mucosa moist. NECK: No JVD, no neck masses. HEART: S1 and S2 heard. Regular rate and rhythm. No murmur, no gallop. RESPIRATORY SYSTEM: Normal AP diameter. No accessory muscle use. No wheezing, no crackles. Decreased breath sounds. ABDOMEN: Soft, bowel sounds present, nontender, no distention. CENTRAL NERVOUS SYSTEM: No facial droop. Speech is clear. Obeys simple commands. Moves extremities. EXTREMITIES: No edema, no erythema seen. Results & Data Results & Data ([facility]) Vital Signs (Past 12 Hours) Vital Signs Temp Pulse Pulse Resp BP BP Pulse Ox 10/11/21 14:00 10/11/21 12:08 84 89 L 10/11/21 11:53 36.5 C 77 21 106/69 92 10/11/21 07:57 36.6 C 75 20 96 10/11/21 07:17 70 19 98 10/11/21 06:01 77 10/11/21 04:31 71 18 95 10/11/21 03:23 36.5 C 72 18 98/57 L 95 Pulse Ox 10/11/21 14:00 95 10/11/21 12:08 10/11/21 11:53 10/11/21 07:57 10/11/21 07:17 10/11/21 06:01 10/11/21 04:31 10/11/21 03:23
[2021-10-11] MEDS: MAGNESIUM OXIDE 400 MG TAB PO SCH (21:19)
[2021-10-11] MEDS: SIMVASTATIN 80 MG TAB PO SCH (21:19)
[2021-10-12 06:08] LABS: Creatinine Clr Calc Pharmacy 103.4 ml/min; Est GFR (African American) 110.5 ml/min; Est GFR (Non-African American) 95.3 ml/min
[2021-10-12] MEDS: cefTRIAXone SODIUM 1,000 MG in DEXTROSE 5% 50 ML IV SCH (06:13)
[2021-10-12] MEDS: DOXYCYCLINE HYCLATE 100 MG in DEXTROSE 5% 100 ML IV SCH ×2 (06:13→17:48)
[2021-10-12] MEDS: FLUTICASONE PROPIONATE NA SPR 16 GM BTL SCH (08:43)
[2021-10-12] MEDS: PANTOprazole 40 MG TAB PO SCH ×2 (08:43→21:53)
[2021-10-12] MEDS: MAGNESIUM OXIDE 400 MG TAB PO SCH ×2 (08:43→21:53)
[2021-10-12] MEDS: POLYETHYLENE (MIRALAX) 17 GM PACK PO SCH (08:45)
[2021-10-12] MEDS: INSULIN ASPART PER UNIT SC SCH ×4 (09:07→22:11)
[2021-10-12] MEDS: INSULIN HUMAN NPH SC SCH (09:09)
[2021-10-12] MEDS: ENOXAPARIN INJ 40 MG/0.4 ML SYR SQ SCH (10:35)
[2021-10-12] MEDS: MULTIVITAMIN TAB PO SCH (10:36)
[2021-10-12] MEDS: METOPROLOL SUCC 25MG EXT REL TAB PO SCH (10:37)
[2021-10-12] MEDS: ASPIRIN 81 MG ECTAB PO SCH (10:37)
[2021-10-12] MEDS: dexAMETHasone 6 MG in SYRINGE 0 ML IV SCH (12:15)
--- NOTE | 2021-10-12 15:31 | Hospitalist Progress Note ---
Date of Service October 12, 2021 Assessment & Plan (1) Acute respiratory failure with hypoxia: (2) Pneumonia due to COVID-19 virus: Plan: 75-year-old male who has recently had COVID pneumonia, presents again with hypoxia 10/09. He is being managed for the following: #. Acute hypoxic respiratory failure #. Recent Covid pneumonia requiring high flow oxygen #. Likely superimposed bacterial pneumonia Patient has recent diagnosis of Covid, was discharged home, presented with increased shortness of breath and is requiring high flow oxygen Imaging is reviewed and is consistent with multifocal pneumonia Continue with dexamethasone 10/09, Rocephin 10/09, doxycycline 10/09. Pulmonary evaluated the patient: Started patient empirically back on dexamethasone. Patient reports feeling better, afebrile, WBC WNL. Continue to monitor. Incentive spirometry not present in room -->RN made aware 10/12. Proning as able. 2. Diabetes: Hold home medication of Lantus insulin sliding scale and adjust the insulin regimen. 3. Hyperlipidemia: On statin. 4. Hypertension: On Toprol-XL. 5. Deep venous thrombosis prophylaxis: Lovenox. Full code DVT prophylaxis: Enoxaparin Disposition: Uncertain, patient requiring high flow oxygen. Admission and Anticipated Discharge Date Admission Date: October 09, 2021 Subjective Patient seen and examined at bedside for likely superimposed bacterial pneumonia versus continued worsening of his recent diagnosis of Covid pneumonia. Patient was lying in bed, on 35 L HFNC, NAD, no new acute events overnight. Patient reports feeling better. Patient reports eating okay. Patient reports no fever/chills/chest pain/palpitations/belly pain/other review of symptoms. Physical Exam Physical Exam: GENERAL: Alert and oriented x3. NAD, on 35 L HFNC HEENT: No pallor, no icterus. Pupils equal, round and reactive to light. Oral mucosa moist. NECK: No JVD, no neck masses. HEART: S1 and S2 heard. Regular rate and rhythm. No murmur, no gallop. RESPIRATORY SYSTEM: Normal AP diameter. No accessory muscle use. No wheezing, no crackles. Decreased breath sounds. ABDOMEN: Soft, bowel sounds present, nontender, no distention. CENTRAL NERVOUS SYSTEM: No facial droop. Speech is clear. Obeys simple commands. Moves extremities. EXTREMITIES: No edema, no erythema seen. Results & Data Results & Data ([facility]) Vital Signs (Past 12 Hours) Vital Signs Temp Pulse Pulse Resp BP BP Pulse Ox 10/12/21 14:00 10/12/21 12:20 36.4 C L 22 115/68 92 10/12/21 07:58 67 10/12/21 07:52 36.8 C 92 H 25 H 112/70 90 10/12/21 07:16 68 18 98 10/12/21 03:57 74 18 90 Pulse Ox 10/12/21 14:00 91 10/12/21 12:20 10/12/21 07:58 10/12/21 07:52 10/12/21 07:16 10/12/21 03:57
[2021-10-12] MEDS: SIMVASTATIN 80 MG TAB PO SCH (21:53)
[2021-10-13] MEDS: cefTRIAXone SODIUM 1,000 MG in DEXTROSE 5% 50 ML IV SCH (05:37)
[2021-10-13] MEDS: DOXYCYCLINE HYCLATE 100 MG in DEXTROSE 5% 100 ML IV SCH ×2 (05:38→18:12)
[2021-10-13] MEDS: INSULIN ASPART PER UNIT SC SCH ×4 (07:51→21:47)
[2021-10-13] MEDS: ENOXAPARIN INJ 40 MG/0.4 ML SYR SQ SCH (08:03)
[2021-10-13] MEDS: MULTIVITAMIN TAB PO SCH (08:05)
[2021-10-13] MEDS: ASPIRIN 81 MG ECTAB PO SCH (08:05)
[2021-10-13] MEDS: MAGNESIUM OXIDE 400 MG TAB PO SCH ×2 (08:05→22:24)
[2021-10-13] MEDS: POLYETHYLENE (MIRALAX) 17 GM PACK PO SCH (08:05)
[2021-10-13] MEDS: PANTOprazole 40 MG TAB PO SCH ×2 (08:05→22:24)
[2021-10-13] MEDS: FLUTICASONE PROPIONATE NA SPR 16 GM BTL SCH (08:05)
[2021-10-13] MEDS: METOPROLOL SUCC 25MG EXT REL TAB PO SCH (08:05)
[2021-10-13] MEDS: INSULIN HUMAN NPH SC SCH (08:27)
[2021-10-13] MEDS: dexAMETHasone 6 MG in SYRINGE 0 ML IV SCH (12:17)
[2021-10-13] MEDS ORDERED: FLUCONAZOLE 50 MG TAB PO ONE (12:30)
--- NOTE | 2021-10-13 16:02 | Hospitalist Progress Note ---
Date of Service October 13, 2021 Assessment & Plan (1) Acute respiratory failure with hypoxia: (2) Pneumonia due to COVID-19 virus: Plan: 75-year-old male who has recently had COVID pneumonia, presents again with hypoxia 10/09. He is being managed for the following: #. Acute hypoxic respiratory failure #. Recent Covid pneumonia requiring high flow oxygen #. Likely superimposed bacterial pneumonia Patient has recent diagnosis of Covid, was discharged home, presented with increased shortness of breath and is requiring high flow oxygen Imaging is reviewed and is consistent with multifocal pneumonia Continue with dexamethasone 10/09, Rocephin 10/09, doxycycline 10/09. Pulmonary evaluated the patient: Started patient empirically back on dexamethasone. Patient reports feeling better, afebrile, WBC WNL. Currently requiring 15 L oxygen. Continue to monitor. Incentive spirometry. Proning as able. 2. Diabetes: Hold home medication of Lantus insulin sliding scale and adjust the insulin regimen. 3. Hyperlipidemia: On statin. 4. Hypertension: On Toprol-XL. 5. Deep venous thrombosis prophylaxis: Lovenox. Full code DVT prophylaxis: Enoxaparin Disposition: Uncertain, patient requiring high flow oxygen. Admission and Anticipated Discharge Date Admission Date: October 09, 2021 Subjective Patient seen and examined at bedside for likely superimposed bacterial pneumonia versus continued worsening of his recent diagnosis of Covid pneumonia. Patient was lying in bed, on 15 L HFNC, NAD, no new acute events overnight. Patient reports feeling better. Patient reports eating okay. Patient reports itching in genital area and likes fluconazole. Will order. Patient reports no fever/chills/chest pain/palpitations/belly pain/other review of symptoms. Physical Exam Physical Exam: GENERAL: Alert and oriented x3. NAD, on 15 L HFNC HEENT: No pallor, no icterus. Pupils equal, round and reactive to light. Oral mucosa moist. NECK: No JVD, no neck masses. HEART: S1 and S2 heard. Regular rate and rhythm. No murmur, no gallop. RESPIRATORY SYSTEM: Normal AP diameter. No accessory muscle use. No wheezing, no crackles. Decreased breath sounds. ABDOMEN: Soft, bowel sounds present, nontender, no distention. CENTRAL NERVOUS SYSTEM: No facial droop. Speech is clear. Obeys simple commands. Moves extremities. EXTREMITIES: No edema, no erythema seen. Results & Data Results & Data ([facility]) Vital Signs (Past 12 Hours) Vital Signs Temp Pulse Pulse Resp BP Pulse Ox 10/13/21 12:04 36.6 C 74 19 106/65 97 10/13/21 07:12 36.6 C 72 20 121/77 93 10/13/21 07:11 73 10/13/21 04:07 36.6 C 67 16 123/76 98
[2021-10-13] MEDS: SIMVASTATIN 80 MG TAB PO SCH (22:24)
[2021-10-14] MEDS: cefTRIAXone SODIUM 1,000 MG in DEXTROSE 5% 50 ML IV SCH (07:00)
[2021-10-14] MEDS: DOXYCYCLINE HYCLATE 100 MG in DEXTROSE 5% 100 ML IV SCH ×2 (07:03→18:08)
[2021-10-14] MEDS: PANTOprazole 40 MG TAB PO SCH ×2 (08:40→20:21)
[2021-10-14] MEDS: METOPROLOL SUCC 25MG EXT REL TAB PO SCH (08:40)
[2021-10-14] MEDS: MULTIVITAMIN TAB PO SCH (08:40)
[2021-10-14] MEDS: ASPIRIN 81 MG ECTAB PO SCH (08:40)
[2021-10-14] MEDS: MAGNESIUM OXIDE 400 MG TAB PO SCH (08:40)
[2021-10-14] MEDS: ENOXAPARIN INJ 40 MG/0.4 ML SYR SQ SCH (08:41)
[2021-10-14] MEDS: FLUTICASONE PROPIONATE NA SPR 16 GM BTL SCH (08:41)
[2021-10-14] MEDS: INSULIN ASPART PER UNIT SC SCH ×4 (08:48→21:07)
[2021-10-14] MEDS: INSULIN HUMAN NPH SC SCH (08:48)
[2021-10-14] MEDS: dexAMETHasone 6 MG in SYRINGE 0 ML IV SCH (12:11)
--- NOTE | 2021-10-14 15:30 | Hospitalist Progress Note ---
Date of Service October 14, 2021 Assessment & Plan (1) Acute respiratory failure with hypoxia: (2) Pneumonia due to COVID-19 virus: Plan: 75-year-old male who has recently had COVID pneumonia, presents again with hypoxia 10/09. He is being managed for the following: #. Acute hypoxic respiratory failure #. Recent Covid pneumonia requiring high flow oxygen #. Likely superimposed bacterial pneumonia Patient has recent diagnosis of Covid, was discharged home, presented with increased shortness of breath and is requiring high flow oxygen Imaging is reviewed and is consistent with multifocal pneumonia Continue with dexamethasone 10/09, Rocephin 10/09, doxycycline 10/09. Pulmonary evaluated the patient: Started patient empirically back on dexamethasone. Patient reports feeling better, afebrile, WBC WNL. Currently requiring 13 L oxygen. Pulled 750 mL on IS at bedside. Continue to monitor. Incentive spirometry. Proning as able. 2. Diabetes: Hold home medication of Lantus insulin sliding scale and adjust the insulin regimen. 3. Hyperlipidemia: On statin. 4. Hypertension: On Toprol-XL. 5. Deep venous thrombosis prophylaxis: Lovenox. Full code DVT prophylaxis: Enoxaparin Disposition: Uncertain, patient requiring high flow oxygen. Admission and Anticipated Discharge Date Admission Date: October 09, 2021 Subjective Patient seen and examined at bedside for likely superimposed bacterial pneumonia versus continued worsening of his recent diagnosis of Covid pneumonia. Patient was lying in bed, on 13 L HFNC, NAD, no new acute events overnight. He was working with physical therapy. Patient reports feeling better. Patient reports eating okay. Patient reports no fever/chills/chest pain/palpitations/belly pain/other review of symptoms. He was able to pull 750 ml in incentive spirometer, better than yesterday. Physical Exam Physical Exam: GENERAL: Alert and oriented x3. NAD, on 13 L HFNC HEENT: No pallor, no icterus. Pupils equal, round and reactive to light. Oral mucosa moist. NECK: No JVD, no neck masses. HEART: S1 and S2 heard. Regular rate and rhythm. No murmur, no gallop. RESPIRATORY SYSTEM: Normal AP diameter. No accessory muscle use. No wheezing, no crackles. Decreased breath sounds. ABDOMEN: Soft, bowel sounds present, nontender, no distention. CENTRAL NERVOUS SYSTEM: No facial droop. Speech is clear. Obeys simple commands. Moves extremities. EXTREMITIES: No edema, no erythema seen. Results & Data Results & Data ([facility]) Vital Signs (Past 12 Hours) Vital Signs Temp Pulse Pulse Resp BP Pulse Ox 10/14/21 13:44 92 10/14/21 11:44 36.4 C L 78 18 109/68 91 10/14/21 08:01 36.5 C 74 18 116/70 93 10/14/21 07:39 70
[2021-10-14] MEDS: SIMVASTATIN 80 MG TAB PO SCH (20:22)
[2021-10-15] MEDS: DOXYCYCLINE HYCLATE 100 MG in DEXTROSE 5% 100 ML IV SCH ×2 (06:10→17:06)
[2021-10-15] MEDS: cefTRIAXone SODIUM 1,000 MG in DEXTROSE 5% 50 ML IV SCH (06:10)
[2021-10-15 07:46] LABS: Hemoglobin 13.9 g/dL (14.0-18.0); Mean Corpuscular Hemoglobin 30.4 pg (25-34); Mean Corpuscular Hgb Conc 33.1 g/dL (32-36); Mean Corpuscular Volume 91.9 fL (80-100); Mean Platelet Volume 9.5 fL (7.4-10.4); Platelet Count 259 K/uL (130-400); RDW Coefficient of Variation 13.6 % (11.5-14.5); RDW Standard Deviation 44.7 fL (36.4-46.3); Red Blood Count 4.57 M/uL (4.7-6.1); White Blood Count 10.19 K/uL (4.8-10.8)
[2021-10-15 08:08] LABS: BUN Creatinine Ratio 23.9 (10-20); Calcium 8.5 mg/dl (8.5-10.1); Creatinine Clr Calc Pharmacy 103.3 ml/min; Est GFR (African American) 110.5 ml/min; Est GFR (Non-African American) 95.3 ml/min; Phosphorus 3.5 mg/dl (2.5-4.9); Potassium 3.9 mmol/L (3.5-5.1)
[2021-10-15] MEDS: INSULIN ASPART PER UNIT SC SCH ×4 (08:11→21:37)
[2021-10-15] MEDS: INSULIN HUMAN NPH SC SCH (08:12)
[2021-10-15] MEDS: ENOXAPARIN INJ 40 MG/0.4 ML SYR SQ SCH (08:22)
[2021-10-15] MEDS: MULTIVITAMIN TAB PO SCH (08:22)
[2021-10-15] MEDS: FLUTICASONE PROPIONATE NA SPR 16 GM BTL SCH (08:23)
[2021-10-15] MEDS: PANTOprazole 40 MG TAB PO SCH ×2 (08:23→21:59)
[2021-10-15] MEDS: METOPROLOL SUCC 25MG EXT REL TAB PO SCH (08:23)
[2021-10-15] MEDS: ASPIRIN 81 MG ECTAB PO SCH (08:23)
[2021-10-15] MEDS: dexAMETHasone 6 MG in SYRINGE 0 ML IV SCH (12:11)
[2021-10-15] MEDS: SODIUM CHLORIDE 0.65% NA SOLN 45 ML (OCEAN) SCH ×2 (13:54→17:06)
[2021-10-15] MEDS ORDERED: FUROSEMIDE INJ 20 MG/2 ML VIAL IV ONE (13:55)
--- NOTE | 2021-10-15 13:59 | Hospitalist Progress Note ---
Date of Service October 15, 2021 Assessment & Plan (1) Acute respiratory failure with hypoxia: (2) Pneumonia due to COVID-19 virus: Plan: 75-year-old male who has recently had COVID pneumonia, presents again with hypoxia 10/09. He is being managed for the following: #. Acute hypoxic respiratory failure #. Recent Covid pneumonia requiring high flow oxygen #. Likely superimposed bacterial pneumonia Patient has recent diagnosis of Covid, was discharged home, presented with increased shortness of breath and is requiring high flow oxygen Imaging is reviewed and is consistent with multifocal pneumonia Continue with dexamethasone 10/09, Rocephin 10/09, doxycycline 10/09. Pulmonary evaluated the patient: Started patient empirically back on dexamethasone. Patient reports feeling better, afebrile, WBC WNL. Currently requiring 7 L oxygen. Pulled better than 750 mL on IS at bedside. Keep patient on dry side, giving a small dose of lasix today. Continue to monitor. Incentive spirometry. Proning as able. 2. Diabetes: Hold home medication of Lantus insulin sliding scale and adjust the insulin regimen. 3. Hyperlipidemia: On statin. 4. Hypertension: On Toprol-XL. 5. Deep venous thrombosis prophylaxis: Lovenox. Full code DVT prophylaxis: Enoxaparin Disposition: Uncertain, patient requiring high flow oxygen. Will likely need 2 step at DC. Admission and Anticipated Discharge Date Admission Date: October 09, 2021 Subjective Patient seen and examined at bedside for likely superimposed bacterial pneumonia versus continued worsening of his recent diagnosis of Covid pneumonia. Patient was sitting up in chair, on 7L HFNC, NAD, no new acute events overnight. He reports working well w/ PT. Patient reports feeling better. Patient reports eating okay. Patient reports no fever/chills/chest pain/palpitations/belly pain/other review of symptoms. He was able to pull consistently better than 750 ml in incentive spirometer, better than yesterday. Physical Exam Physical Exam: GENERAL: Alert and oriented x3. NAD, on 7 L HFNC HEENT: No pallor, no icterus. Pupils equal, round and reactive to light. Oral mucosa moist. NECK: No JVD, no neck masses. HEART: S1 and S2 heard. Regular rate and rhythm. No murmur, no gallop. RESPIRATORY SYSTEM: Normal AP diameter. No accessory muscle use. No wheezing, no crackles. Decreased breath sounds --> improving ABDOMEN: Soft, bowel sounds present, nontender, no distention. CENTRAL NERVOUS SYSTEM: No facial droop. Speech is clear. Obeys simple commands. Moves extremities. EXTREMITIES: No edema, no erythema seen. Results & Data Results & Data ([facility]) Vital Signs (Past 12 Hours) Vital Signs Temp Pulse Pulse Resp BP BP Pulse Ox 10/15/21 11:36 92 10/15/21 11:27 36.3 C L 83 22 106/66 88 L 10/15/21 08:00 74 10/15/21 07:26 36.5 C 66 18 118/69 88 L 10/15/21 03:41 36.5 C 75 24 105/71 90 10/15/21 03:00 Pulse Ox 10/15/21 11:36 10/15/21 11:27 10/15/21 08:00 10/15/21 07:26 10/15/21 03:41 10/15/21 03:00 93
[2021-10-15] MEDS: SIMVASTATIN 80 MG TAB PO SCH (21:59)
[2021-10-16] MEDS: SODIUM CHLORIDE 0.65% NA SOLN 45 ML (OCEAN) SCH ×4 (01:52→22:09)
[2021-10-16] MEDS: PANTOprazole 40 MG TAB PO SCH ×2 (08:18→22:08)
[2021-10-16] MEDS: METOPROLOL SUCC 25MG EXT REL TAB PO SCH (08:18)
[2021-10-16] MEDS: ASPIRIN 81 MG ECTAB PO SCH (08:18)
[2021-10-16] MEDS: MULTIVITAMIN TAB PO SCH (08:18)
[2021-10-16] MEDS: FLUTICASONE PROPIONATE NA SPR 16 GM BTL SCH (08:19)
[2021-10-16] MEDS: ENOXAPARIN INJ 40 MG/0.4 ML SYR SQ SCH (08:19)
[2021-10-16] MEDS: INSULIN ASPART PER UNIT SC SCH ×4 (08:38→21:49)
[2021-10-16] MEDS: INSULIN HUMAN NPH SC SCH (08:38)
[2021-10-16] MEDS: dexAMETHasone 6 MG in SYRINGE 0 ML IV SCH (13:57)
--- NOTE | 2021-10-16 15:16 | Hospitalist Progress Note ---
Date of Service October 16, 2021 Assessment & Plan (1) Acute respiratory failure with hypoxia: (2) Pneumonia due to COVID-19 virus: Plan: 75-year-old male who has recently had COVID pneumonia, presents again with hypoxia 10/09. He is being managed for the following: #. Acute hypoxic respiratory failure #. Recent Covid pneumonia requiring high flow oxygen #. Likely superimposed bacterial pneumonia Patient has recent diagnosis of Covid, was discharged home, presented with increased shortness of breath and is requiring high flow oxygen Imaging is reviewed and is consistent with multifocal pneumonia Continue with dexamethasone 10/09, s/p rocephin and doxy course x 7d Pulmonary evaluated the patient: Started patient empirically back on dexamethasone. Patient reports feeling better, afebrile, WBC WNL. Currently requiring 13 L oxygen. Keep patient on dry side, lasix prn Continue to monitor. Incentive spirometry q1hwa. Proning as able. 2. Diabetes: Hold home medication of Lantus insulin sliding scale and adjust the insulin regimen. 3. Hyperlipidemia: On statin. 4. Hypertension: On Toprol-XL. 5. Deep venous thrombosis prophylaxis: Lovenox. Full code DVT prophylaxis: Enoxaparin Disposition: Uncertain, patient requiring high flow oxygen. Will likely need 2 step at DC. Not on home O2 prior. Admission and Anticipated Discharge Date Admission Date: October 09, 2021 Subjective Patient seen and examined at bedside for likely superimposed bacterial pneumonia versus continued worsening of his recent diagnosis of Covid pneumonia. Patient was sitting up in chair, on 13L HFNC, NAD, no new acute events overnight. He reports working well w/ PT. Patient reports feeling better. Patient reports eating okay. Patient reports no fever/chills/chest pain/palpitations/belly pain/other review of symptoms. He was doing IS very frequently, likely might have overdone, counselled to do it as advised. Physical Exam Physical Exam: GENERAL: Alert and oriented x3. NAD, on 13 L HFNC HEENT: No pallor, no icterus. Pupils equal, round and reactive to light. Oral mucosa moist. NECK: No JVD, no neck masses. HEART: S1 and S2 heard. Regular rate and rhythm. No murmur, no gallop. RESPIRATORY SYSTEM: Normal AP diameter. No accessory muscle use. No wheezing, no crackles. Decreased breath sounds --> improving ABDOMEN: Soft, bowel sounds present, nontender, no distention. CENTRAL NERVOUS SYSTEM: No facial droop. Speech is clear. Obeys simple commands. Moves extremities. EXTREMITIES: No edema, no erythema seen. Results & Data Results & Data ([facility]) Vital Signs (Past 12 Hours) Vital Signs Temp Pulse Pulse Resp BP Pulse Ox 10/16/21 11:45 36.5 C 85 20 116/70 88 L 10/16/21 08:10 72 10/16/21 03:43 36.4 C L 72 18 109/71 97
[2021-10-16] MEDS: INSULIN GLARGINE SOLOSTAR 100 UNITS/ML 3 ML PEN SC SCH (21:49)
[2021-10-16] MEDS: MELATONIN 3 MG TAB PO PRN (22:08)
[2021-10-16] MEDS: SIMVASTATIN 80 MG TAB PO SCH (22:09)
[2021-10-17] MEDS: SODIUM CHLORIDE 0.65% NA SOLN 45 ML (OCEAN) SCH ×4 (00:01→18:12)
[2021-10-17] MEDS: ENOXAPARIN INJ 40 MG/0.4 ML SYR SQ SCH (09:03)
[2021-10-17] MEDS: ASPIRIN 81 MG ECTAB PO SCH (09:06)
[2021-10-17] MEDS: MULTIVITAMIN TAB PO SCH (09:06)
[2021-10-17] MEDS: METOPROLOL SUCC 25MG EXT REL TAB PO SCH (09:06)
[2021-10-17] MEDS: PANTOprazole 40 MG TAB PO SCH ×2 (09:06→22:11)
[2021-10-17] MEDS: FLUTICASONE PROPIONATE NA SPR 16 GM BTL SCH (09:07)
[2021-10-17] MEDS: INSULIN GLARGINE SOLOSTAR 100 UNITS/ML 3 ML PEN SC SCH ×2 (09:34→21:59)
[2021-10-17] MEDS: INSULIN ASPART PER UNIT SC SCH ×4 (09:34→21:59)
--- NOTE | 2021-10-17 10:40 | Hospitalist Progress Note ---
Date of Service October 17, 2021 Assessment & Plan (1) Acute respiratory failure with hypoxia: (2) Pneumonia due to COVID-19 virus: Plan: 75-year-old male who has recently had COVID pneumonia, presents again with hypoxia 10/09. He is being managed for the following: #. Acute hypoxic respiratory failure #. Recent Covid pneumonia requiring high flow oxygen #. Likely superimposed bacterial pneumonia Patient has recent diagnosis of Covid, was discharged home, presented with increased shortness of breath and is requiring high flow oxygen Imaging is reviewed and is consistent with multifocal pneumonia Completed ceftriaxone and doxycycline course Currently on dexamethasone. Today will be day 9 Currently on NC at 12l/min. Continue incentive spirometry/flutter/self pronining Keep patient on dry side, lasix prn #. Diabetes: Hold home medication of Lantus insulin sliding scale and adjust the insulin regimen. #. Hyperlipidemia: On statin. #. Hypertension: On Toprol-XL. #. Deep venous thrombosis prophylaxis: Lovenox. Full code DVT prophylaxis: Enoxaparin Disposition: Uncertain, patient requiring high flow oxygen. Will likely need 2 step at DC. Not on home O2 prior. Admission and Anticipated Discharge Date Admission Date: October 09, 2021 Subjective Patient seen and examined. Reports cough, occasionally productive of sputum with incentive spirometry. Denies any chest pain, shortness of breath Denies any fevers, chills Denies nausea, vomiting, abdominal pain. Reports anorexia has completely resolved and has good appetite. Denies any diarrhea or constipation Denies dysuria, frequency, urgency Physical Exam Constitutional: + well hydrated; no acute distress Eyes: PERRL, conjunctivae normal, anicteric sclerae ENMT: external ear and nose normal, oropharynx normal Respiratory: On nasal cannula at 12 L/min, not in respiratory distress, breathing is normal, diminished breath sounds Cardiovascular: Rate/Rhythm: regular rate and regular rhythm S1-S2 Gastrointestinal (Abdomen): normal bowel sounds, soft, nontender, no hepatosplenomegaly Musculoskeletal: no cyanosis or clubbing, extremities motor strength 5/5 Neurologic: PERRL, EOMI, accommodation nl, no face palsy, no dysarthria Psychiatric: A+Ox3, euthymic affect Results & Data Results & Data ([facility]) Vital Signs (Past 12 Hours) Vital Signs Temp Pulse Pulse Resp BP Pulse Ox 10/17/21 09:00 36.2 C L 79 18 119/75 92 10/17/21 04:13 36.6 C 65 20 112/71 92 10/16/21 23:32 69 10/16/21 23:10 36.5 C 66 23 115/72 93 Laboratory Results Abnormal lab results 10/16/21 10/16/21 10/16/21 Range/Units 11:39 16:37 20:19 POC Glucose 239 H 209 H 306 H* (70-99) mg/dl 10/16/21 10/17/21 Range/Units 20:20 07:26 POC Glucose 320 H* 191 H (70-99) mg/dl
[2021-10-17] MEDS: dexAMETHasone 6 MG in SYRINGE 0 ML IV SCH (12:26)
[2021-10-17] MEDS: MELATONIN 3 MG TAB PO PRN (22:10)
[2021-10-17] MEDS: SIMVASTATIN 80 MG TAB PO SCH (22:10)
[2021-10-18] MEDS: SODIUM CHLORIDE 0.65% NA SOLN 45 ML (OCEAN) SCH ×5 (01:06→23:57)
[2021-10-18] MEDS: MULTIVITAMIN TAB PO SCH (08:43)
[2021-10-18] MEDS: PANTOprazole 40 MG TAB PO SCH ×2 (08:43→20:42)
[2021-10-18] MEDS: METOPROLOL SUCC 25MG EXT REL TAB PO SCH (08:43)
[2021-10-18] MEDS: ASPIRIN 81 MG ECTAB PO SCH (08:43)
[2021-10-18] MEDS: FLUTICASONE PROPIONATE NA SPR 16 GM BTL SCH (08:44)
[2021-10-18 08:52] LABS: BUN Creatinine Ratio 22.6 (10-20); Calcium 8.7 mg/dl (8.5-10.1); Creatinine Clr Calc Pharmacy 111.7 ml/min; Est GFR (African American) 114.1 ml/min; Est GFR (Non-African American) 98.4 ml/min
[2021-10-18 09:01] LABS: Hematocrit (blood only) 42.3 % (42-52); Hemoglobin 13.9 g/dL (14.0-18.0); Mean Corpuscular Hemoglobin 30.2 pg (25-34); Mean Corpuscular Hgb Conc 32.9 g/dL (32-36); Platelet Count 289 K/uL (130-400); RDW Coefficient of Variation 13.7 % (11.5-14.5); RDW Standard Deviation 45.6 fL (36.4-46.3); White Blood Count 9.59 K/uL (4.8-10.8)
--- NOTE | 2021-10-18 11:05 | Hospitalist Progress Note ---
Date of Service October 18, 2021 Assessment & Plan (1) Acute respiratory failure with hypoxia: (2) Pneumonia due to COVID-19 virus: Plan: 75-year-old male who has recently had COVID pneumonia, presents again with hypoxia 10/09. He is being managed for the following: #. Acute hypoxic respiratory failure #. Recent Covid pneumonia requiring high flow oxygen #. Likely superimposed bacterial pneumonia Patient has recent diagnosis of Covid, was discharged home, presented with increased shortness of breath and is requiring high flow oxygen Imaging is reviewed and is consistent with multifocal pneumonia Completed ceftriaxone and doxycycline course Currently on dexamethasone. Today will be day 10. Stop after today's dose Currently on NC at 11l/min. Continue incentive spirometry/flutter/self proning IV lasix 20mg today #. Diabetes: Hold home medication of Lantus insulin sliding scale and adjust the insulin regimen. #. Hyperlipidemia: On statin. #. Hypertension: On Toprol-XL. #. Deep venous thrombosis prophylaxis: Lovenox. Full code DVT prophylaxis: Enoxaparin Disposition: Uncertain, patient requiring high flow oxygen. Will likely need 2 step at DC. Not on home O2 prior. Admission and Anticipated Discharge Date Admission Date: October 09, 2021 Subjective Patient seen and examined. Reports cough, occasionally productive of sputum Denies any chest pain, shortness of breath Denies any fevers, chills Denies nausea, vomiting, abdominal pain, anorexia Denies any diarrhea or constipation Denies dysuria, frequency, urgency Physical Exam Constitutional: + well hydrated; no acute distress Eyes: PERRL, conjunctivae normal, anicteric sclerae ENMT: external ear and nose normal, oropharynx normal Respiratory: Still on NC at 11l/min Diminished breath sounds Cardiovascular: Rate/Rhythm: regular rate and regular rhythm S1 S2 Gastrointestinal (Abdomen): normal bowel sounds, soft, nontender, no hepatosplenomegaly Musculoskeletal: no cyanosis or clubbing, extremities motor strength 5/5 Neurologic: PERRL, EOMI, accommodation nl, no face palsy, no dysarthria Psychiatric: A+Ox3, euthymic affect Results & Data Results & Data ([facility]) Vital Signs (Past 12 Hours) Vital Signs Temp Pulse Pulse Resp BP Pulse Ox 10/18/21 07:58 36.3 C L 67 18 111/75 89 L 10/18/21 04:48 36.6 C 66 20 121/67 90 10/18/21 00:33 36.5 C 72 20 117/73 95 10/18/21 00:00 61 Laboratory Results Abnormal lab results 10/17/21 10/17/21 10/18/21 Range/Units 16:42 20:26 07:36 RBC (4.7-6.1) M/uL Hgb (14.0-18.0) g/dL BUN/Creatinine Ratio (10-20) Glucose (70-99(Fasting)) mg/dl POC Glucose 172 H 233 H 138 H (70-99) mg/dl 10/18/21 10/18/21 Range/Units 08:02 08:02 RBC 4.60 L (4.7-6.1) M/uL Hgb 13.9 L (14.0-18.0) g/dL BUN/Creatinine Ratio 22.6 H (10-20) Glucose 159 H (70-99(Fasting)) mg/dl POC Glucose (70-99) mg/dl
[2021-10-18] MEDS ORDERED: FUROSEMIDE INJ 20 MG/2 ML VIAL IV ONE (11:49)
[2021-10-18] MEDS: INSULIN ASPART PER UNIT SC SCH ×4 (12:02→21:03)
[2021-10-18] MEDS: INSULIN GLARGINE SOLOSTAR 100 UNITS/ML 3 ML PEN SC SCH ×2 (12:02→21:04)
[2021-10-18] MEDS ORDERED: dexAMETHasone 6 MG in SYRINGE 0 ML IV ONE (12:17)
[2021-10-18] MEDS: dexAMETHasone 6 MG in SYRINGE 0 ML IV SCH (13:10)
[2021-10-18] MEDS: ENOXAPARIN INJ 40 MG/0.4 ML SYR SQ SCH (13:10)
[2021-10-18] MEDS: SIMVASTATIN 80 MG TAB PO SCH (20:42)
[2021-10-19] MEDS: SODIUM CHLORIDE 0.65% NA SOLN 45 ML (OCEAN) SCH ×3 (05:27→17:02)
[2021-10-19 06:32] LABS: BUN Creatinine Ratio 28.8 (10-20); Calcium 8.4 mg/dl (8.5-10.1); Creatinine Clr Calc Pharmacy 122.4 ml/min; Est GFR (African American) 122.6 ml/min; Est GFR (Non-African American) 105.8 ml/min; Potassium 3.7 mmol/L (3.5-5.1)
[2021-10-19] MEDS: INSULIN ASPART PER UNIT SC SCH ×4 (08:05→21:24)
[2021-10-19] MEDS: INSULIN GLARGINE SOLOSTAR 100 UNITS/ML 3 ML PEN SC SCH ×2 (08:06→21:24)
[2021-10-19] MEDS: ASPIRIN 81 MG ECTAB PO SCH (08:14)
[2021-10-19] MEDS: METOPROLOL SUCC 25MG EXT REL TAB PO SCH (08:14)
[2021-10-19] MEDS: FLUTICASONE PROPIONATE NA SPR 16 GM BTL SCH (08:14)
[2021-10-19] MEDS: ENOXAPARIN INJ 40 MG/0.4 ML SYR SQ SCH (08:14)
[2021-10-19] MEDS: MULTIVITAMIN TAB PO SCH (08:15)
[2021-10-19] MEDS: PANTOprazole 40 MG TAB PO SCH ×2 (08:15→21:10)
--- NOTE | 2021-10-19 11:14 | Hospitalist Progress Note ---
Date of Service October 19, 2021 Assessment & Plan (1) Acute respiratory failure with hypoxia: (2) Pneumonia due to COVID-19 virus: Plan: 75-year-old male who has recently had COVID pneumonia, presents again with hypoxia 10/09. He is being managed for the following: #. Acute hypoxic respiratory failure #. Recent Covid pneumonia requiring high flow oxygen #. Likely superimposed bacterial pneumonia Patient has recent diagnosis of Covid, was discharged home, presented with increased shortness of breath and is requiring high flow oxygen Imaging is reviewed and is consistent with multifocal pneumonia Completed ceftriaxone and doxycycline course Completed 10 days of dexamethasone Currently on NC at 9l/min. Continue incentive spirometry/flutter/self proning IV lasix 20mg today #. Diabetes: Continue ISS and lantus per protocol #. Hyperlipidemia: On statin. #. Hypertension: On Toprol-XL. #. Deep venous thrombosis prophylaxis: Lovenox. Full code DVT prophylaxis: Enoxaparin Disposition: Uncertain, patient requiring high flow oxygen. Will likely need 2 step at DC. Not on home O2 prior. Admission and Anticipated Discharge Date Admission Date: October 09, 2021 Subjective Patient seen and examined. Reports occasional productive cough Denies any chest pain, shortness of breath Denies any fevers, chills Denies nausea, vomiting, abdominal pain, anorexia Denies any diarrhea or constipation Denies dysuria, frequency, urgency Physical Exam Constitutional: + well hydrated; no acute distress Eyes: PERRL, conjunctivae normal, anicteric sclerae ENMT: external ear and nose normal, oropharynx normal Respiratory: On NC at 9l/min Diminished breath sounds. No crackles Cardiovascular: Rate/Rhythm: regular rate and regular rhythm S1 S2 Gastrointestinal (Abdomen): normal bowel sounds, soft, nontender, no hepatosplenomegaly Musculoskeletal: no cyanosis or clubbing, extremities motor strength 5/5 Neurologic: PERRL, EOMI, accommodation nl, no face palsy, no dysarthria Psychiatric: A+Ox3, euthymic affect Results & Data Results & Data ([facility]) Vital Signs (Past 12 Hours) Vital Signs Temp Pulse Pulse Resp BP Pulse Ox 10/19/21 08:00 61 10/19/21 07:00 36.4 C L 83 16 117/65 84 L 10/19/21 05:26 36.5 C 74 18 129/71 92 10/19/21 00:09 36.7 C 67 18 101/50 L 95 10/19/21 00:00 75 Laboratory Results Abnormal lab results 10/18/21 10/18/21 10/19/21 Range/Units 16:21 20:35 05:36 Creatinine 0.52 L (0.6-1.4) mg/dl BUN/Creatinine Ratio 28.8 H (10-20) Glucose 181 H (70-99(Fasting)) mg/dl POC Glucose 209 H 150 H (70-99) mg/dl Calcium 8.4 L (8.5-10.1) mg/dl 10/19/21 10/19/21 Range/Units 07:43 11:42 Creatinine (0.6-1.4) mg/dl BUN/Creatinine Ratio (10-20) Glucose (70-99(Fasting)) mg/dl POC Glucose 187 H 185 H (70-99) mg/dl Calcium (8.5-10.1) mg/dl
[2021-10-19] MEDS ORDERED: FUROSEMIDE INJ 20 MG/2 ML VIAL IV ONE (16:00)
[2021-10-19] MEDS: SIMVASTATIN 80 MG TAB PO SCH (21:11)
[2021-10-19] MEDS ORDERED: POLYETHYLENE (MIRALAX) 17 GM PACK PO PRN (22:42)
[2021-10-20] MEDS: SODIUM CHLORIDE 0.65% NA SOLN 45 ML (OCEAN) SCH ×5 (01:33→23:39)
[2021-10-20 08:21] LABS: Hematocrit (blood only) 41.2 % (42-52); Hemoglobin 13.6 g/dL (14.0-18.0); Mean Corpuscular Hemoglobin 30.2 pg (25-34); Mean Corpuscular Volume 91.4 fL (80-100); Platelet Count 253 K/uL (130-400); RDW Coefficient of Variation 13.8 % (11.5-14.5); RDW Standard Deviation 45.1 fL (36.4-46.3); Red Blood Count 4.51 M/uL (4.7-6.1); White Blood Count 10.18 K/uL (4.8-10.8)
[2021-10-20 08:44] LABS: BUN Creatinine Ratio 21.3 (10-20); Calcium 8.4 mg/dl (8.5-10.1); Creatinine Clr Calc Pharmacy 84.9 ml/min; Est GFR (African American) 105.5 ml/min; Potassium 4.5 mmol/L (3.5-5.1)
[2021-10-20] MEDS: INSULIN ASPART PER UNIT SC SCH ×4 (08:57→20:54)
[2021-10-20] MEDS: INSULIN GLARGINE SOLOSTAR 100 UNITS/ML 3 ML PEN SC SCH ×2 (08:58→20:54)
[2021-10-20] MEDS ORDERED: FUROSEMIDE INJ 20 MG/2 ML VIAL IV ONE (08:59)
[2021-10-20] MEDS: ENOXAPARIN INJ 40 MG/0.4 ML SYR SQ SCH (09:11)
[2021-10-20] MEDS: MULTIVITAMIN TAB PO SCH (09:12)
[2021-10-20] MEDS: METOPROLOL SUCC 25MG EXT REL TAB PO SCH (09:12)
[2021-10-20] MEDS: ASPIRIN 81 MG ECTAB PO SCH (09:12)
[2021-10-20] MEDS: PANTOprazole 40 MG TAB PO SCH ×2 (09:13→20:33)
--- NOTE | 2021-10-20 10:08 | Hospitalist Progress Note ---
Date of Service October 20, 2021 Assessment & Plan (1) Acute respiratory failure with hypoxia: (2) Pneumonia due to COVID-19 virus: Plan: 75-year-old male who has recently had COVID pneumonia, presents again with hypoxia 10/09. He is being managed for the following: #. Acute hypoxic respiratory failure #. Recent Covid pneumonia requiring high flow oxygen #. Likely superimposed bacterial pneumonia Patient has recent diagnosis of Covid, was discharged home, presented with increased shortness of breath and is requiring high flow oxygen Imaging is reviewed and is consistent with multifocal pneumonia Completed ceftriaxone and doxycycline course Completed 10 days of dexamethasone Currently on NC at 10l/min. Continue incentive spirometry/flutter/self proning IV lasix 20mg today #. Diabetes: Continue ISS and lantus per protocol #. Hyperlipidemia: On statin. #. Hypertension: On Toprol-XL. #. Deep venous thrombosis prophylaxis: Lovenox. Full code DVT prophylaxis: Enoxaparin Disposition: Uncertain, patient requiring high flow oxygen. Will likely need 2 step at DC. Not on home O2 prior. Admission and Anticipated Discharge Date Admission Date: October 09, 2021 Subjective Patient seen and examined. Reports occasional productive cough Had some epistaxis earlier which is resolved Denies any chest pain, shortness of breath Denies any fevers, chills Denies nausea, vomiting, abdominal pain, anorexia, diarrhea Denies dysuria, frequency, urgency Physical Exam Constitutional: + well hydrated; no acute distress Eyes: PERRL, conjunctivae normal, anicteric sclerae ENMT: external ear and nose normal, oropharynx normal Respiratory: On NC at 10l/min, diminished breath sounds Cardiovascular: Rate/Rhythm: regular rate and regular rhythm S1 S2 Gastrointestinal (Abdomen): normal bowel sounds, soft, nontender, no hepatosplenomegaly Musculoskeletal: no cyanosis or clubbing, extremities motor strength 5/5 Neurologic: PERRL, EOMI, accommodation nl, no face palsy, no dysarthria Psychiatric: A+Ox3, euthymic affect Results & Data Results & Data ([facility]) Vital Signs (Past 12 Hours) Vital Signs Temp Pulse Pulse Resp BP BP Pulse Ox 10/20/21 07:59 36.7 C 87 17 114/71 91 10/20/21 03:39 36.7 C 85 16 95 10/19/21 23:27 36.6 C 87 16 99/66 L 95 02/04/22 23:00 84 Laboratory Results Abnormal lab results 10/19/21 10/19/21 10/20/21 Range/Units 16:25 20:27 07:54 RBC (4.7-6.1) M/uL Hgb (14.0-18.0) g/dL Hct (42-52) % Sodium (136-145) mmol/L Chloride (98-107) mmol/L BUN/Creatinine Ratio (10-20) Glucose (70-99(Fasting)) mg/dl POC Glucose 130 H 157 H 162 H (70-99) mg/dl Calcium (8.5-10.1) mg/dl 10/20/21 10/20/21 10/20/21 Range/Units 07:55 07:55 11:48 RBC 4.51 L (4.7-6.1) M/uL Hgb 13.6 L (14.0-18.0) g/dL Hct 41.2 L (42-52) % Sodium 135 L (136-145) mmol/L Chloride 97 L (98-107) mmol/L BUN/Creatinine Ratio 21.3 H (10-20) Glucose 178 H (70-99(Fasting)) mg/dl POC Glucose 283 H (70-99) mg/dl Calcium 8.4 L (8.5-10.1) mg/dl
[2021-10-20] MEDS: SENNA 8.6 MG TAB PO SCH (12:26)
[2021-10-20] MEDS: SIMVASTATIN 80 MG TAB PO SCH (20:33)
[2021-10-21] MEDS: SODIUM CHLORIDE 0.65% NA SOLN 45 ML (OCEAN) SCH ×4 (05:57→23:32)
[2021-10-21 06:44] LABS: Calcium 8.4 mg/dl (8.5-10.1); Creatinine Clr Calc Pharmacy 102.7 ml/min; Est GFR (African American) 114.1 ml/min; Est GFR (Non-African American) 98.4 ml/min; Potassium 3.8 mmol/L (3.5-5.1)
[2021-10-21] MEDS: ENOXAPARIN INJ 40 MG/0.4 ML SYR SQ SCH (08:21)
[2021-10-21] MEDS: INSULIN ASPART PER UNIT SC SCH ×5 (08:21→23:26)
[2021-10-21] MEDS: METOPROLOL SUCC 25MG EXT REL TAB PO SCH (08:22)
[2021-10-21] MEDS: INSULIN GLARGINE SOLOSTAR 100 UNITS/ML 3 ML PEN SC SCH (08:22)
[2021-10-21] MEDS: ASPIRIN 81 MG ECTAB PO SCH (08:22)
[2021-10-21] MEDS: PANTOprazole 40 MG TAB PO SCH ×2 (08:23→20:55)
[2021-10-21] MEDS: SENNA 8.6 MG TAB PO SCH (08:23)
[2021-10-21] MEDS: MULTIVITAMIN TAB PO SCH (08:23)
--- NOTE | 2021-10-21 10:05 | Hospitalist Progress Note ---
Date of Service October 21, 2021 Assessment & Plan (1) Acute respiratory failure with hypoxia: (2) Pneumonia due to COVID-19 virus: Plan: 75-year-old male who has recently had COVID pneumonia, presents again with hypoxia 10/09. He is being managed for the following: #. Acute hypoxic respiratory failure #. Recent Covid pneumonia requiring high flow oxygen #. Likely superimposed bacterial pneumonia Patient has recent diagnosis of Covid, was discharged home, presented with increased shortness of breath and is requiring high flow oxygen Imaging is reviewed and is consistent with multifocal pneumonia Completed ceftriaxone and doxycycline course Completed 10 days of dexamethasone Currently on NC at 10l/min. Continue to wean down as tolerated Continue incentive spirometry/flutter/self proning IV lasix 40mg today. Monitor renal function/ekectrolytes #. Diabetes: Continue ISS and lantus per protocol #. Hyperlipidemia: On statin. #. Hypertension: On Toprol-XL. #. Deep venous thrombosis prophylaxis: Lovenox. Full code DVT prophylaxis: Enoxaparin Disposition: Uncertain, patient requiring 10l/min. Will likely need 2 step at DC. Not on home O2 prior. Called and updated her Admission and Anticipated Discharge Date Admission Date: October 09, 2021 Subjective Patient seen and examined. Reports productive cough Denies any chest pain, shortness of breath Denies any fevers, chills Denies nausea, vomiting, abdominal pain, anorexia, diarrhea Denies dysuria, frequency, urgency Physical Exam Constitutional: + well hydrated; no acute distress Eyes: PERRL, conjunctivae normal, anicteric sclerae ENMT: external ear and nose normal, oropharynx normal Respiratory: On NC at 10l/min, diminished breath sounds, no crackles Cardiovascular: Rate/Rhythm: regular rate and regular rhythm S1 S2 Gastrointestinal (Abdomen): normal bowel sounds, soft, nontender, no hepatosplenomegaly Musculoskeletal: no cyanosis or clubbing, extremities motor strength 5/5 No pedal edema Neurologic: PERRL, EOMI, accommodation nl, no face palsy, no dysarthria Psychiatric: A+Ox3, euthymic affect Results & Data Results & Data ([facility]) Vital Signs (Past 12 Hours) Vital Signs Temp Pulse Pulse Resp BP Pulse Ox 10/21/21 07:50 36.4 C L 83 23 122/79 94 10/21/21 03:51 36.4 C L 79 18 113/71 91 10/20/21 23:32 36.8 C 87 18 103/64 90 10/20/21 23:11 87 Laboratory Results Abnormal lab results 10/20/21 10/20/21 10/21/21 Range/Units 16:50 20:03 06:04 Sodium 133 L (136-145) mmol/L Chloride 96 L (98-107) mmol/L BUN/Creatinine Ratio 21.0 H (10-20) Glucose 182 H (70-99(Fasting)) mg/dl POC Glucose 124 H 205 H (70-99) mg/dl Calcium 8.4 L (8.5-10.1) mg/dl 10/21/21 10/21/21 Range/Units 07:48 11:35 Sodium (136-145) mmol/L Chloride (98-107) mmol/L BUN/Creatinine Ratio (10-20) Glucose (70-99(Fasting)) mg/dl POC Glucose 187 H 234 H (70-99) mg/dl Calcium (8.5-10.1) mg/dl
[2021-10-21] MEDS ORDERED: FUROSEMIDE 40 MG/4 ML VIAL IV ONE (13:58)
[2021-10-21] MEDS ORDERED: PHARMACY GLYCEMIC MGMT CONSULT PRN (14:07)
[2021-10-21] MEDS ORDERED: INSULIN GLARGINE SOLOSTAR 100 UNITS/ML 3 ML PEN SC ONE (14:45)
--- NOTE | 2021-10-21 14:48 | Pharmacy Report ---
Pharmacy Glycemic Short Note 2 - Date of Service October 21, 2021 - Glycemic Short BSG Results (Last 24 hours): 10/20/21 10/20/21 10/21/21 16:50 20:03 06:04 Glucose 182 H POC Glucose 124 H 205 H 10/21/21 10/21/21 07:48 11:35 Glucose POC Glucose 187 H 234 H OUTPATIENT ANTIDIABETIC REGIMEN: * Metformin 1000 mg PO qAM, 500 mg PO qPM * Glipizide 10 mg PO BIDM * Trulicity 3 mg SC weekly on Friday * HbA1c: 9.6% (10/10/21) ASSESSMENT: * CM is a 75 year old male with T2DM admitted on 10/09/21 with COVID-19 pneumonia * Last dose of IV dexamethasone was 10/18/21 * BSGs have been persistently elevated throughout admission, pharmacy consulted for glycemic management today for lunchtime BSG of 235 mg/dL * Will begin to increase basal insulin today and slightly tighten carb ratio * No other obvious stressors beyond infection * Pertinent PMH includes hypertension and hyperlipidemia PLAN FOR INPATIENT GLYCEMIC CONTROL: * Hold outpatient oral diabetes medications * Basal insulin * Patient had previously been receiving Lantus 25 units SC BID * Received 25 units already this morning, will add 30 unit x 1 dose at time of consult * Reassess in AM * Bolus insulin -tighten * NovoLog per scale ACHS or Q6hrs while NPO * Goal Range: Low 110 mg/dL - High 140 mg/dL * Correction Factor: 20 mg/dL/unit * Nutritional / Prandial insulin per carb ratio of 1 unit per 5 grams CHO consumed PLAN FOR DISCHARGE: * HbA1c of 9.6% suggests poor outpatient glycemic control (reasonable goal for most adults is less than 7%) * [facility] - suggest prompt follow- up with them at time of discharge * Patient would likely benefit from addition of once daily basal insulin, but will defer to their judgment * Reasonable to increase metformin to 1000 mg BIDM
[2021-10-21] MEDS: SIMVASTATIN 80 MG TAB PO SCH (20:55)
[2021-10-22] MEDS: INSULIN ASPART PER UNIT SC SCH ×5 (04:16→20:57)
[2021-10-22] MEDS: SODIUM CHLORIDE 0.65% NA SOLN 45 ML (OCEAN) SCH ×4 (08:03→23:36)
[2021-10-22] MEDS: ENOXAPARIN INJ 40 MG/0.4 ML SYR SQ SCH (08:04)
[2021-10-22] MEDS: SENNA 8.6 MG TAB PO SCH (08:05)
[2021-10-22] MEDS: PANTOprazole 40 MG TAB PO SCH ×2 (08:05→20:59)
[2021-10-22] MEDS: ASPIRIN 81 MG ECTAB PO SCH (08:05)
[2021-10-22] MEDS: MULTIVITAMIN TAB PO SCH (08:06)
[2021-10-22 08:09] LABS: BUN Creatinine Ratio 19.7 (10-20); Calcium 8.7 mg/dl (8.5-10.1); Creatinine Clr Calc Pharmacy 96.4 ml/min; Est GFR (African American) 111.2 ml/min; Est GFR (Non-African American) 95.9 ml/min; Potassium 3.8 mmol/L (3.5-5.1)
[2021-10-22] MEDS: INSULIN GLARGINE SOLOSTAR 100 UNITS/ML 3 ML PEN SC SCH ×2 (08:43→20:57)
--- NOTE | 2021-10-22 11:33 | Hospitalist Progress Note ---
Date of Service October 22, 2021 Assessment & Plan (1) Acute respiratory failure with hypoxia: (2) Pneumonia due to COVID-19 virus: Plan: 75-year-old male who has recently had COVID pneumonia, presents again with hypoxia 10/09. He is being managed for the following: #. Acute hypoxic respiratory failure #. Recent Covid pneumonia requiring high flow oxygen #. Likely superimposed bacterial pneumonia Patient has recent diagnosis of Covid, was discharged home, presented with increased shortness of breath and is requiring high flow oxygen Imaging consistent with multifocal pneumonia Completed ceftriaxone and doxycycline course Completed 10 days of dexamethasone Currently on NC at 10l/min. Continue to wean down as tolerated Continue incentive spirometry/flutter/self proning IV lasix prn #. Diabetes: Continue ISS and lantus per protocol Glycemic pharm on board for glycemic management A1c is 9.6 Will need addition of lantus daily on dc and increasing metformin to 1000mg bid #. Hyperlipidemia: On statin. #. Hypertension: On Toprol-XL. #. Deep venous thrombosis prophylaxis: Lovenox. Full code DVT prophylaxis: Enoxaparin Disposition: Uncertain, patient requiring 10l/min. Will likely need 2 step at DC. Not on home O2 prior. Airborne precautions discontinued as patient is >20 days since infection Called but phone unanswered Admission and Anticipated Discharge Date Admission Date: October 09, 2021 Subjective Patient seen and examined. Reports productive cough Denies any chest pain, shortness of breath at rest. Reports occasional exertional dyspnea Denies any fevers, chills Denies nausea, vomiting, abdominal pain, anorexia, diarrhea Denies dysuria, frequency, urgency Physical Exam Constitutional: + well hydrated; no acute distress Eyes: PERRL, conjunctivae normal, anicteric sclerae ENMT: external ear and nose normal, oropharynx normal Respiratory: On NC 10l/min, Diminished breath sounds bilaterally Cardiovascular: Rate/Rhythm: regular rate and regular rhythm S1 S2 Gastrointestinal (Abdomen): normal bowel sounds, soft, nontender, no hepatosplenomegaly Musculoskeletal: no cyanosis or clubbing, extremities motor strength 5/5 Neurologic: PERRL, EOMI, accommodation nl, no face palsy, no dysarthria Psychiatric: A+Ox3, euthymic affect Results & Data Results & Data ([facility]) Vital Signs (Past 12 Hours) Vital Signs Temp Pulse Pulse Resp BP Pulse Ox 10/22/21 07:35 36.6 C 89 18 91/59 L 12 L 10/22/21 04:00 36.4 C L 83 18 121/82 95 10/22/21 00:00 36.6 C 92 H 16 103/70 93 10/21/21 23:35 88 Laboratory Results Abnormal lab results 10/21/21 10/21/21 10/21/21 Range/Units 16:29 20:09 23:19 Sodium (136-145) mmol/L Chloride (98-107) mmol/L Glucose (70-99(Fasting)) mg/dl POC Glucose 101 H 113 H 162 H (70-99) mg/dl 10/22/21 10/22/21 10/22/21 Range/Units 07:04 07:15 11:15 Sodium 134 L (136-145) mmol/L Chloride 95 L (98-107) mmol/L Glucose 140 H (70-99(Fasting)) mg/dl POC Glucose 136 H 242 H (70-99) mg/dl
[2021-10-22] MEDS: METOPROLOL SUCC 25MG EXT REL TAB PO SCH (12:18)
--- NOTE | 2021-10-22 12:31 | Pharmacy Report ---
Pharmacy Glycemic Short Note 2 - Date of Service October 22, 2021 - Glycemic Short BSG Results (Last 24 hours): 10/21/21 10/21/21 10/21/21 16:29 20:09 23:19 Glucose POC Glucose 101 H 113 H 162 H 10/22/21 10/22/21 10/22/21 04:14 07:04 07:15 Glucose 140 H POC Glucose 95 136 H 10/22/21 11:15 Glucose POC Glucose 242 H OUTPATIENT ANTIDIABETIC REGIMEN: * Metformin 1000 mg PO qAM, 500 mg PO qPM * Glipizide 10 mg PO BIDM * Trulicity 3 mg SC weekly on Friday * HbA1c: 9.6% (10/10/21) ASSESSMENT: 10/22 * BSGs improved following consult, 234, 101, 113, 162 mg/dL, fasting BSG of 136 mg/dL this morning * Received 97 units of insulin (55 units of Lantus and 42 units of prandial/correctional bolus) * Lunch BSG trending up again today, will continue current Novolog parameters, but will tighten AM parameters starting tomorrow 10/21 * DANNI is a 75 year old male with T2DM admitted on 10/09/21 with COVID-19 pneumonia * Last dose of IV dexamethasone was 10/18/21 * BSGs have been persistently elevated throughout admission, pharmacy consulted for glycemic management today for lunchtime BSG of 235 mg/dL * Will begin to increase basal insulin today and slightly tighten carb ratio * No other obvious stressors beyond infection * Pertinent PMH includes hypertension and hyperlipidemia PLAN FOR INPATIENT GLYCEMIC CONTROL: * Hold outpatient oral diabetes medications * Basal insulin * Lantus 30 units SC daily * Lantus 25-30 units SC HS (see EHR for details) * Bolus insulin -continue * NovoLog per scale ACHS or Q6hrs while NPO * Goal Range: Low 110 mg/dL - High 140 mg/dL * Correction Factor: 20 mg/dL/unit * Nutritional / Prandial insulin per carb ratio of 1 unit per 5 grams CHO consumed (1 unit per 4 grams CHO consumed with breakfast) PLAN FOR DISCHARGE: * HbA1c of 9.6% suggests poor outpatient glycemic control (reasonable goal for most adults is less than 7%) * Patient follows with [facility] clinic - suggest prompt follow- up with them at time of discharge * Patient would likely benefit from addition of once daily basal insulin, but will defer to their judgment * Reasonable to increase metformin to 1000 mg BIDM
[2021-10-22] MEDS ORDERED: FUROSEMIDE INJ 20 MG/2 ML VIAL IV ONE (16:03)
[2021-10-22] MEDS: SIMVASTATIN 80 MG TAB PO SCH (20:59)
[2021-10-23] MEDS: SODIUM CHLORIDE 0.65% NA SOLN 45 ML (OCEAN) SCH ×3 (05:38→17:15)
[2021-10-23 07:11] LABS: BUN Creatinine Ratio 21.1 (10-20); Calcium 8.5 mg/dl (8.5-10.1); Creatinine Clr Calc Pharmacy 120.8 ml/min; Est GFR (African American) 118.1 ml/min; Est GFR (Non-African American) 101.9 ml/min; Potassium 3.8 mmol/L (3.5-5.1)
[2021-10-23] MEDS: INSULIN ASPART PER UNIT SC SCH ×4 (09:05→20:57)
[2021-10-23] MEDS: ENOXAPARIN INJ 40 MG/0.4 ML SYR SQ SCH (09:06)
[2021-10-23] MEDS: MULTIVITAMIN TAB PO SCH (09:06)
[2021-10-23] MEDS: ASPIRIN 81 MG ECTAB PO SCH (09:07)
[2021-10-23] MEDS: SENNA 8.6 MG TAB PO SCH (09:07)
[2021-10-23] MEDS: METOPROLOL SUCC 25MG EXT REL TAB PO SCH (09:07)
[2021-10-23] MEDS: PANTOprazole 40 MG TAB PO SCH ×2 (09:08→20:56)
[2021-10-23] MEDS: INSULIN GLARGINE SOLOSTAR 100 UNITS/ML 3 ML PEN SC SCH ×2 (09:08→20:57)
--- NOTE | 2021-10-23 09:47 | Pharmacy Report ---
Pharmacy Glycemic Short Note 2 - Date of Service October 23, 2021 - Glycemic Short BSG Results (Last 24 hours): 10/22/21 10/22/21 10/22/21 11:15 16:08 20:41 Glucose POC Glucose 242 H 94 142 H 10/23/21 10/23/21 06:11 07:12 Glucose 212 H POC Glucose 192 H OUTPATIENT ANTIDIABETIC REGIMEN: * Metformin 1000 mg PO qAM, 500 mg PO qPM * Glipizide 10 mg PO BIDM * Trulicity 3 mg SC weekly on Friday * HbA1c: 9.6% (10/10/21) ASSESSMENT: 10/23 * Fasting BSG 212mg/dl - increase HS Lantus dose * CR adjusted to be tighter with breakfast yesterday, no further insulin changes at this time 10/22 * BSGs improved following consult, 234, 101, 113, 162 mg/dL, fasting BSG of 136 mg/dL this morning * Received 97 units of insulin (55 units of Lantus and 42 units of prandial/correctional bolus) * Lunch BSG trending up again today, will continue current Novolog parameters, but will tighten AM parameters starting tomorrow 10/21 * CM is a 75 year old male with T2DM admitted on 10/09/21 with COVID-19 pneumonia * Last dose of IV dexamethasone was 10/18/21 * BSGs have been persistently elevated throughout admission, pharmacy consulted for glycemic management today for lunchtime BSG of 235 mg/dL * Will begin to increase basal insulin today and slightly tighten carb ratio * No other obvious stressors beyond infection * Pertinent PMH includes hypertension and hyperlipidemia PLAN FOR INPATIENT GLYCEMIC CONTROL: * Hold outpatient diabetes medications * Basal insulin * Lantus 30 units SC daily * Lantus 35 units SC HS (30 units for BSG 110mg/dl or less) * Bolus insulin * NovoLog per scale ACHS or Q6hrs while NPO * Goal Range: Low 110 mg/dL - High 140 mg/dL * Correction Factor: 20 mg/dL/unit * Nutritional / Prandial insulin per carb ratio of 1 unit per 5 grams CHO consumed (1 unit per 4 grams CHO consumed with breakfast) PLAN FOR DISCHARGE: * HbA1c of 9.6% suggests poor outpatient glycemic control (reasonable goal for most adults is less than 7%) * Patient follows with [facility] clinic - suggest prompt follow- up with them at time of discharge * Patient would likely benefit from addition of once daily basal insulin, but will defer to their judgment * Reasonable to increase metformin to 1000 mg BIDM
--- NOTE | 2021-10-23 10:55 | Hospitalist Progress Note ---
Date of Service October 23, 2021 Assessment & Plan (1) Acute respiratory failure with hypoxia: (2) Pneumonia due to COVID-19 virus: Plan: 75-year-old male who has recently had COVID pneumonia, presents again with hypoxia 10/09. He is being managed for the following: #. Acute hypoxic respiratory failure #. Recent Covid pneumonia requiring high flow oxygen #. Likely superimposed bacterial pneumonia Patient has recent diagnosis of Covid, was discharged home, presented with increased shortness of breath and is requiring high flow oxygen Imaging consistent with multifocal pneumonia Completed ceftriaxone and doxycycline course Completed 10 days of dexamethasone Currently on NC at 9l/min. Continue to wean down as tolerated Continue incentive spirometry/flutter/self proning IV lasix prn #. Diabetes: Continue ISS and lantus per protocol Glycemic pharm on board for glycemic management A1c is 9.6 Will need addition of lantus daily on dc and increasing metformin to 1000mg bid #. Hyperlipidemia: On statin. #. Hypertension: On Toprol-XL. #. Deep venous thrombosis prophylaxis: Lovenox. Full code DVT prophylaxis: Enoxaparin Disposition: Uncertain, patient requiring 10l/min. Will likely need 2 step at [address] C. Not on home O2 prior. Admission and Anticipated Discharge Date Admission Date: October 09, 2021 Subjective Patient seen and examined. Still reports cough and exertional dyspnea Denies any chest pain Denies any fevers, chills Denies nausea, vomiting, abdominal pain, anorexia, diarrhea Denies dysuria, frequency, urgency Physical Exam Constitutional: + well hydrated; no acute distress Eyes: PERRL, conjunctivae normal, anicteric sclerae ENMT: external ear and nose normal, oropharynx normal Respiratory: On NC 9l/min, Diminished breath sounds Cardiovascular: Rate/Rhythm: regular rate and regular rhythm S1 S2 Gastrointestinal (Abdomen): normal bowel sounds, soft, nontender, no hepatosplenomegaly Musculoskeletal: no cyanosis or clubbing, extremities motor strength 5/5 Neurologic: PERRL, EOMI, accommodation nl, no face palsy, no dysarthria Psychiatric: A+Ox3, euthymic affect Results & Data Results & Data ([facility]) Vital Signs (Past 12 Hours) Vital Signs Temp Pulse Pulse Resp BP Pulse Ox 10/23/21 07:31 36.4 C L 93 H 24 109/71 90 10/23/21 07:00 94 H 10/23/21 05:07 36.7 C 90 18 120/71 99 10/22/21 23:21 36.4 C L 83 18 112/70 90 10/22/21 23:00 90 Laboratory Results Abnormal lab results 10/22/21 10/23/21 10/23/21 Range/Units 20:41 06:11 07:12 Sodium 132 L (136-145) mmol/L Chloride 95 L (98-107) mmol/L Creatinine 0.57 L (0.6-1.4) mg/dl BUN/Creatinine Ratio 21.1 H (10-20) Glucose 212 H (70-99(Fasting)) mg/dl POC Glucose 142 H 192 H (70-99) mg/dl 10/23/21 Range/Units 11:16 Sodium (136-145) mmol/L Chloride (98-107) mmol/L Creatinine (0.6-1.4) mg/dl BUN/Creatinine Ratio (10-20) Glucose (70-99(Fasting)) mg/dl POC Glucose 225 H (70-99) mg/dl
[2021-10-23] MEDS ORDERED: bisacodyL 10 MG SUPP PR STA (11:11)
[2021-10-23] MEDS: SIMVASTATIN 80 MG TAB PO SCH (20:56)
[2021-10-24] MEDS: SODIUM CHLORIDE 0.65% NA SOLN 45 ML (OCEAN) SCH ×5 (00:28→23:58)
[2021-10-24] MEDS: MELATONIN 3 MG TAB PO PRN (01:08)
[2021-10-24] MEDS ORDERED: LORazepam 0.5 MG TAB PO STA (04:32)
[2021-10-24] MEDS ORDERED: LORazepam 0.5 MG TAB ONE (04:47)
[2021-10-24] MEDS ORDERED: GLUCAGON FOR INJ 1 MG VIAL IM PRN (05:45)
[2021-10-24] MEDS ORDERED: GLUCOSE 10 TABS/TUBE PO PRN (05:45)
[2021-10-24] MEDS ORDERED: GLUCOSE 40% GEL 15 GM TUBE PO PRN (05:45)
[2021-10-24] MEDS ORDERED: DEXTROSE 50% 50 ML SYRINGE IV PRN (05:45)
[2021-10-24] MEDS ORDERED: CARBOHYDRATES FOR HYPOGLYCEMIA PO PRN (05:45)
[2021-10-24 06:52] LABS: Hematocrit (blood only) 39.7 % (42-52); Hemoglobin 13.1 g/dL (14.0-18.0); Mean Corpuscular Hemoglobin 29.8 pg (25-34); Mean Corpuscular Volume 90.2 fL (80-100); Mean Platelet Volume 9.6 fL (7.4-10.4); Platelet Count 238 K/uL (130-400); RDW Coefficient of Variation 13.6 % (11.5-14.5); RDW Standard Deviation 44.3 fL (36.4-46.3); White Blood Count 9.18 K/uL (4.8-10.8)
[2021-10-24 07:13] LABS: BUN Creatinine Ratio 16.9 (10-20); Calcium 8.5 mg/dl (8.5-10.1); Creatinine Clr Calc Pharmacy 116.7 ml/min; Est GFR (African American) 116.4 ml/min; Est GFR (Non-African American) 100.4 ml/min; Potassium 3.8 mmol/L (3.5-5.1)
[2021-10-24] MEDS: METOPROLOL SUCC 25MG EXT REL TAB PO SCH (08:42)
[2021-10-24] MEDS: MULTIVITAMIN TAB PO SCH (08:42)
[2021-10-24] MEDS: PANTOprazole 40 MG TAB PO SCH ×2 (08:42→21:44)
[2021-10-24] MEDS: SENNA 8.6 MG TAB PO SCH (08:42)
[2021-10-24] MEDS: ENOXAPARIN INJ 40 MG/0.4 ML SYR SQ SCH (08:42)
[2021-10-24] MEDS: ASPIRIN 81 MG ECTAB PO SCH (08:42)
[2021-10-24] MEDS: INSULIN GLARGINE SOLOSTAR 100 UNITS/ML 3 ML PEN SC SCH ×2 (08:43→21:57)
[2021-10-24] MEDS: INSULIN ASPART PER UNIT SC SCH ×4 (08:48→21:57)
--- NOTE | 2021-10-24 09:34 | XRay Report ---
XR chest 1V portable CLINICAL HISTORY: COVID TECHNIQUE: Single frontal radiograph of the chest was obtained. Comparison: Comparison is made to chest one view 10/08/2021 FINDINGS: No lines and tubes are seen. The cardiomediastinal silhouette is stable. Lungs are underinflated with multifocal airspace opacities, with interval evolutionary changes. No evidence of pleural effusion o r pneumothorax. IMPRESSION: Multifocal airspace opacities may represent atelectasis, pneumonia, and/or aspiration. ACT 112: Negative or not required by law. Electronically signed by: Xiang Marie M.D. 10/24/2021 9:33 AM
[2021-10-24] MEDS ORDERED: FUROSEMIDE INJ 20 MG/2 ML VIAL IV ONE (14:27)
[2021-10-24] MEDS ORDERED: MELATONIN 3 MG TAB PO PRN (16:57)
--- NOTE | 2021-10-24 17:57 | Hospitalist Progress Note ---
Date of Service October 24, 2021 Assessment & Plan (1) Acute respiratory failure with hypoxia: (2) Pneumonia due to COVID-19 virus: Plan: Patient is a 75 yr old male who has recently had COVID pneumonia, presents again with hypoxia 10/09. Acute hypoxic respiratory failure Multifocal COVID-19 pneumonia Likely superimposed bacterial pneumonia --CTA:No pulmonary emboli identified. Extensive multifocal consolidation and groundglass opacities within the lungs consistent with pneumonia. Mildly enlarged right hilar lymph nodes which are likely reactive. Circumferential wall thickening of the mid to distal esophagus. This is nonspecific but may reflect esophagitis. Small hiatal hernia. Cholelithiasis. -Completed ceftriaxone and doxycycline course Completed 10 days of dexamethasone course as well Continue incentive spirometry/flutter/self proning IV lasix PRN CXR today showed Multifocal airspace opacities may represent atelectasis, pneumonia, and/or aspiration. Currently on high flow oxygen Recheck inflammatory markers tomorrow Started on Prednisone taper course DM II Continue ISS and lantus per protocol Glycemic pharm on board for glycemic management A1c is 9.6 May need to increase metformin to 1000mg bid and needs lantus upon DC Monitor BGs Hyperlipidemia: On statin. Hypertension: On Metoprolol DVT Px: Lovenox SQ Code Status Full code Admission and Anticipated Discharge Date Admission Date: October 09, 2021 Subjective Patient is seen and examined at bedside States having cough Also reports dyspnea on minimal exertion and Insomnia Family at bedside No other complaints Review of Systems Review of Systems: All systems reviewed & are unremarkable except as noted in Subjective Physical Exam Physical Exam: Physical Exam: Vitals signs as noted above General Appearance:Moderately built and nourished, no apparent distress Head: normocephalic, Atraumatic Eyes: normal inspection, EOMI Neck: supple, Trachea midline Respiratory/Chest: Decreased breath sounds, mild basal crackles Cardiovascular: S1, S2, No murmur Abdomen/GI:Soft, Non tender, Bowel sounds present Extremities/Musculoskeletal:normal inspection, no edema Neurologic/Psych:AAOX3, grossly no focal neurological deficits Skin: normal color, warm Results & Data Results & Data ([facility]) Vital Signs (Past 12 Hours) Vital Signs Temp Pulse Pulse Resp BP Pulse Ox 10/24/21 16:00 36.8 C 104 H 18 115/73 99 10/24/21 14:59 111 H 10/24/21 14:50 103 H 32 H 91 10/24/21 14:36 37.0 C 108 H 45 H 101/62 93 10/24/21 10:26 44 H 89 L 10/24/21 08:30 77 10/24/21 08:07 36.8 C 86 22 120/69 94 Laboratory Results Short CBC 10/24/21 Range/Units 06:17 WBC 9.18 (4.8-10.8) K/uL Hgb 13.1 L (14.0-18.0) g/dL Hct 39.7 L (42-52) % Plt Count 238 (130-400) K/uL BMP 10/24/21 06:17 Sodium 133 L Potassium 3.8 Chloride 97 L Carbon Dioxide 31 BUN 10 Creatinine 0.59 L Glucose 92 Calcium 8.5
[2021-10-24] MEDS ORDERED: predniSONE 20 MG TAB PO SCH (18:00)
[2021-10-24] MEDS ORDERED: dexAMETHasone 6 MG in SYRINGE 0 ML IV SCH (18:00)
[2021-10-24] MEDS ORDERED: XOPENEX/ATROVENT 1.25mg/0.5MG NEB COMBO NEB STA (20:14)
[2021-10-24] MEDS ORDERED: LEVALBUTEROL 1.25MG/0.5ML NEB INH ONE (20:15)
[2021-10-24] MEDS ORDERED: IPRATROPIUM BROMIDE NEB SOLN 0.02% 2.5 ML VIAL INH ONE (20:15)
[2021-10-24] MEDS ORDERED: methylPREDNISolone 20 MG in SYRINGE 0 ML IV STA (20:17)
[2021-10-24] MEDS ORDERED: POTASSIUM CHLORIDE CRTAB 20 MEQ TABCR PO STA (20:19)
--- NOTE | 2021-10-24 20:19 | Communication Note ---
Date of Service: October 24, 2021 Made aware by RN of hemoptysis. Hold aspirin and heparin subcu for now.
[2021-10-24 20:44] LABS: Basophils # (auto) 0.01 K/uL (0-0.2); Basophils % (auto) 0.1 %; Eosinophils # (auto) 0.14 K/uL (0-0.5); Eosinophils % (auto) 1.4 %; Hematocrit (blood only) 39.3 % (42-52); Hemoglobin 13.2 g/dL (14.0-18.0); Immature Granulocytes # (auto) 0.02 K/uL (0.00-0.02); Immature Granulocytes % (auto) 0.2 %; Lymphocytes # (auto) 1.33 K/uL (1.2-3.4); Lymphocytes % (auto) 13.4 %; Mean Corpuscular Hemoglobin 29.9 pg (25-34); Mean Corpuscular Hgb Conc 33.6 g/dL (32-36); Mean Corpuscular Volume 89.1 fL (80-100); Mean Platelet Volume 9.8 fL (7.4-10.4); Monocytes # (auto) 0.62 K/uL (0.11-0.59); Monocytes % (auto) 6.3 %; Neutrophils % (auto) 78.6 %; Platelet Count 251 K/uL (130-400); RDW Coefficient of Variation 13.5 % (11.5-14.5); RDW Standard Deviation 44.2 fL (36.4-46.3); Red Blood Count 4.41 M/uL (4.7-6.1); White Blood Count 9.92 K/uL (4.8-10.8)
[2021-10-24 20:51] LABS: Base Excess ABG 5.3 mEq/L (-9-1.8); HCO3 ABG 28 mmol/L (19-24); Oxygen Saturation ABG 96.6 % (90-95); PCO2 ABG 35 mmHg (35-46); PO2 ABG 78 mmHg (80-95)
[2021-10-24 20:53] LABS: Allen Test Pos (Pos)
[2021-10-24 20:56] LABS: pH ABG 7.52 (7.35-7.45)
[2021-10-24] MEDS: SIMVASTATIN 80 MG TAB PO SCH (21:44)
[2021-10-25] MEDS: SODIUM CHLORIDE 0.65% NA SOLN 45 ML (OCEAN) SCH ×3 (05:08→17:10)
[2021-10-25 08:31] LABS: BUN Creatinine Ratio 18.5 (10-20); Calcium 9.1 mg/dl (8.5-10.1); Creatinine Clr Calc Pharmacy 105.8 ml/min; Est GFR (African American) 111.9 ml/min; Est GFR (Non-African American) 96.5 ml/min; Potassium 5.7 mmol/L (3.5-5.1)
[2021-10-25] MEDS ORDERED: FUROSEMIDE INJ 20 MG/2 ML VIAL IV ONE (09:00)
--- NOTE | 2021-10-25 09:08 | Pharmacy Report ---
Pharmacy Glycemic Short Note 2 - Date of Service October 25, 2021 - Glycemic Short BSG Results (Last 24 hours): 10/24/21 10/24/21 10/24/21 11:19 16:21 21:53 Glucose POC Glucose 182 H 159 H 230 H 10/25/21 10/25/21 07:13 07:26 Glucose 291 H POC Glucose 264 H OUTPATIENT ANTIDIABETIC REGIMEN: * Metformin 1000 mg PO qAM, 500 mg PO qPM * Glipizide 10 mg PO BIDM * Trulicity 3 mg SC weekly on Friday * HbA1c: 9.6% (10/10/21) ASSESSMENT: 10/25 * Patient received Solu-Medrol 20mg IV x 1 and Prednisone 40mg PO x1 last evening, resulting in blood sugars in 200s last night and this AM * Started on Dexamethasone 6mg IV daily this morning, will add NPH to cover and tighten CR at breakfast at this time * Reduce HS Lantus, as patient will receive more basal coverage in AM with NPH and to prevent AM Hypoglycemia 10/23 * Fasting BSG 212mg/dl - increase HS Lantus dose * CR adjusted to be tighter with breakfast yesterday, no further insulin changes at this time 10/22 * BSGs improved following consult, 234, 101, 113, 162 mg/dL, fasting BSG of 136 mg/dL this morning * Received 97 units of insulin (55 units of Lantus and 42 units of prandial/correctional bolus) * Lunch BSG trending up again today, will continue current Novolog parameters, but will tighten AM parameters starting tomorrow 10/21 * CM is a 75 year old male with T2DM admitted on 10/09/21 with COVID-19 pneumonia * Last dose of IV dexamethasone was 10/18/21 * BSGs have been persistently elevated throughout admission, pharmacy consulted for glycemic management today for lunchtime BSG of 235 mg/dL * Will begin to increase basal insulin today and slightly tighten carb ratio * No other obvious stressors beyond infection * Pertinent PMH includes hypertension and hyperlipidemia PLAN FOR INPATIENT GLYCEMIC CONTROL: * Hold outpatient diabetes medications * Basal insulin * Lantus 30 units SC daily * Lantus 20 units SC HS (15 units for BSG 110mg/dl or less) * NPH 25 units SC daily with IV dexamethasone (hold if dexamethasone held) * Bolus insulin * NovoLog per scale ACHS or Q6hrs while NPO * Goal Range: Low 110 mg/dL - High 140 mg/dL * Correction Factor: 20 mg/dL/unit (15mg/dL/unit at breakfast) * Nutritional / Prandial insulin per carb ratio of 1 unit per 5 grams CHO consumed (1 unit per 3 grams CHO consumed with breakfast) PLAN FOR DISCHARGE: * HbA1c of 9.6% suggests poor outpatient glycemic control (reasonable goal for most adults is less than 7%) * Patient follows with [facility] clinic - suggest prompt follow- up with them at time of discharge * Patient would likely benefit from addition of once daily basal insulin, but will defer to their judgment * Reasonable to increase metformin to 1000 mg BIDM
[2021-10-25] MEDS: MULTIVITAMIN TAB PO SCH (09:13)
[2021-10-25] MEDS: SENNA 8.6 MG TAB PO SCH (09:13)
[2021-10-25] MEDS: PANTOprazole 40 MG TAB PO SCH ×2 (09:13→22:39)
[2021-10-25] MEDS: METOPROLOL SUCC 25MG EXT REL TAB PO SCH (09:14)
[2021-10-25] MEDS: INSULIN GLARGINE SOLOSTAR 100 UNITS/ML 3 ML PEN SC SCH ×2 (09:14→21:59)
[2021-10-25] MEDS: INSULIN ASPART PER UNIT SC SCH ×4 (09:24→21:58)
[2021-10-25] MEDS ORDERED: OPTIRAY 320 125ml IV ONE (10:17)
[2021-10-25] MEDS: INSULIN HUMAN NPH SC SCH (10:41)
[2021-10-25] MEDS: dexAMETHasone 6 MG in SYRINGE 0 ML IV SCH (10:41)
--- NOTE | 2021-10-25 13:04 | CT Scan Report ---
CT ANGIOGRAPHY OF THE CHEST, PULMONARY EMBOLUS PROTOCOL CLINICAL HISTORY: Severe shortness of breath. Covid. COMPARISON STUDY: Chest CT October 09, 2021. Chest radiograph October 24, 2021. TECHNIQUE: Following IV administration of 120 mL of Optiray, helical axial images of the chest were o btained utilizing the pulmonary embolus protocol. Maximal intensity projections and sagittal and cor onal reformats were viewed on an independent 3D workstation. IV contrast was administered without co mplication. Automated exposure control was utilized for the study. A dose lowering technique was ut ilized adhering to the principles of ALARA. CT DOSE: 505.91 mGycm FINDINGS: No pulmonary emboli are identified although the segmental and subsegmental pulmonary arter ies are suboptimally assessed due to respiratory motion. Cardiomegaly is noted. No pericardial effusi on. Prominent mediastinal and bilateral hilar lymph nodes are likely reactive. No pneumothorax is pre sent. There are trace bilateral pleural effusions. There is no pneumomediastinum. Extensive airspace opacities noted throughout the lungs. In addition, there is intralobular septal thickening. Findings have progressed since prior CT. Mild atelectasis is present. There is no honeycombing. A few hepatic lesions likely reflect cysts. There are gallstones within the gallbladder. IMPRESSION: 1. No pulmonary emboli identified although segmental and subsegmental pulmonary arteries suboptimally assessed due to respiratory motion. 2. Extensive airspace opacities throughout the lungs, as described above. This suggests viral pneumon ia. Superimposed ARDS cannot be excluded. Mild bronchiectasis. No honeycombing. 3. Trace bilateral pleural effusions. No pneumothorax. No pneumomediastinum. ACT 112: Negative or not required by law. Electronically signed by: Sean Ludwig M.D. 10/25/2021 1:03 PM
[2021-10-25 14:27] LABS: BUN Creatinine Ratio 25.4 (10-20); Calcium 9.3 mg/dl (8.5-10.1); Creatinine Clr Calc Pharmacy 116.5 ml/min; Est GFR (African American) 116.4 ml/min; Est GFR (Non-African American) 100.4 ml/min; Potassium 4.1 mmol/L (3.5-5.1)
[2021-10-25] MEDS ORDERED: INSULIN ASPART PER UNIT SC SCH (14:30)
--- NOTE | 2021-10-25 15:59 | Hospitalist Progress Note ---
Date of Service October 25, 2021 Assessment & Plan (1) Acute respiratory failure with hypoxia: (2) Pneumonia due to COVID-19 virus: Plan: Patient is a 75 yr old male who has recently had COVID pneumonia, presents again with hypoxia 10/09. Acute hypoxic respiratory failure Multifocal COVID-19 pneumonia Likely superimposed bacterial pneumonia --CTA:No pulmonary emboli identified. Extensive multifocal consolidation and groundglass opacities within the lungs consistent with pneumonia. Mildly enlarged right hilar lymph nodes which are likely reactive. Circumferential wall thickening of the mid to distal esophagus. This is nonspecific but may reflect esophagitis. Small hiatal hernia. Cholelithiasis. --Repeat CTA on 10/25/20:No PE, extensive airspace opacities throughout the lungs. ARDS cannot be excluded. Mild bronchiectasis. Trace bilateral pleural effusion. No pneumothorax or pneumomediastinum noted. -CRP:16.36>13 -Completed ceftriaxone and doxycycline course Completed 10 days of dexamethasone course Continue incentive spirometry/flutter/self proning IV Lasix PRN Restarted Dexamethasone give possibility of ARDS Need to re-address goals of Care Appreciate Pulmonology Input Currently on 14 L supplemental oxygen Procalcitonin remains Negative Hemoptysis Likely due to above Aspirin held Monitor CBC Antitussives DM II Continue ISS and lantus per protocol Glycemic pharm on board for glycemic management A1c is 9.6 May need to increase metformin to 1000mg bid and needs lantus upon DC Monitor BGs Hyperlipidemia: On statin. Hypertension: On Metoprolol DVT Px: Lovenox SQ--Held due to hemoptysis Code Status Full code Admission and Anticipated Discharge Date Admission Date: October 09, 2021 Subjective Patient is seen and examined at bedside Was on High flow oxygen overnight Currently on 14 L supplemental Oxygen Patient expressed frustration due to prolonged hospital stay Discussed with Pulmonology today Patient reports cough with expectoration No significant Shortness of breath subjectively Updated patient's over the phone Denies chest pain, dizziness, nausea, abd pain Review of Systems Review of Systems: All systems reviewed & are unremarkable except as noted in Subjective Physical Exam Physical Exam: Physical Exam: Vitals signs as noted above General Appearance:Moderately built and nourished, no apparent distress Head: normocephalic, Atraumatic Eyes: normal inspection, EOMI Neck: supple, Trachea midline Respiratory/Chest: Decreased breath sounds, mild basal crackles Cardiovascular: S1, S2, No murmur Abdomen/GI:Soft, Non tender, Bowel sounds present Extremities/Musculoskeletal:normal inspection, no edema Neurologic/Psych:AAOX3, grossly no focal neurological deficits Skin: normal color, warm Results & Data Results & Data ([facility]) Vital Signs (Past 12 Hours) Vital Signs Temp Pulse Pulse Resp BP BP Pulse Ox 10/25/21 15:44 91 10/25/21 15:25 92 H 10/25/21 15:24 36.4 C L 90 17 126/71 88 L 10/25/21 11:59 95 10/25/21 11:20 36.6 C 93 H 22 110/72 93 10/25/21 11:05 30 H 95 10/25/21 09:30 84 10/25/21 08:32 36.3 C L 88 20 132/77 92 10/25/21 07:11 87 22 98 10/25/21 05:59 84 18 96 10/25/21 05:00 17 97 Laboratory Results Short CBC 10/24/21 Range/Units 20:31 WBC 9.92 (4.8-10.8) K/uL Hgb 13.2 L (14.0-18.0) g/dL Hct 39.3 L (42-52) % Plt Count 251 (130-400) K/uL BMP 10/25/21 10/25/21 07:13 13:57 Sodium 134 L 137 Potassium 5.7 H D 4.1 D Chloride 97 L 99 Carbon Dioxide 31 31 BUN 12 15 Creatinine 0.65 0.59 L Glucose 291 H 124 H Calcium 9.1 9.3
[2021-10-25] MEDS: NICOTINE 14 MG/24 HR PATCH TD SCH (17:10)
[2021-10-25] MEDS ORDERED: XOPENEX/ATROVENT 1.25mg/0.5MG NEB COMBO NEB STA (21:46)
[2021-10-25] MEDS ORDERED: hydrOXYzine HCl 10 MG TAB PO STA (21:47)
[2021-10-25] MEDS ORDERED: OLANZapine 10 MG/2.1 ML SDV IM STA (21:48)
[2021-10-25] MEDS ORDERED: LEVALBUTEROL 1.25MG/0.5ML NEB INH STA (21:51)
[2021-10-25] MEDS ORDERED: IPRATROPIUM BROMIDE NEB SOLN 0.02% 2.5 ML VIAL INH STA (21:51)
[2021-10-25] MEDS ORDERED: methylPREDNISolone 20 MG in SYRINGE 0 ML IV ONE (22:00)
[2021-10-25] MEDS ORDERED: MAGNESIUM SULFATE / D5W 1 GM/100 ML BAG IV ONE (22:00)
--- NOTE | 2021-10-25 22:21 | XRay Report ---
XR chest 1V portable CLINICAL HISTORY: low o2. Follow-up alveolar opacities. COMPARISON STUDY: 10/24/2021 TECHNIQUE: 1 view of the chest FINDINGS: Single frontal view of the chest demonstrates the cardiomediastinal silhouette to be within normal li mits. Compared to previous examination, there is significant interval worsening of bilateral intersti tial and alveolar opacities. Asymmetric elevation right hemidiaphragm is again seen. There is no evid ence for pleural effusion. There is no evidence for vascular congestion. There is no acute osseous pa thology. IMPRESSION: Interval worsening of bilateral interstitial and alveolar opacities. ACT 112: Negative or not required by law. Electronically signed by: Darío Mcintosh M.D. 10/25/2021 10:19 PM
[2021-10-25 22:37] LABS: Base Excess ABG 4.1 mEq/L (-9-1.8); HCO3 ABG 27 mmol/L (19-24); Oxygen Saturation ABG 96.4 % (90-95); PCO2 ABG 34 mmHg (35-46); PO2 ABG 76 mmHg (80-95)
[2021-10-25 22:39] LABS: pH ABG 7.51 (7.35-7.45)
[2021-10-25] MEDS: BENZONATATE 100 MG CAPSULE PO SCH (22:39)
[2021-10-25] MEDS: SIMVASTATIN 80 MG TAB PO SCH (22:39)
[2021-10-25 22:40] LABS: Allen Test Pos (Pos)
[2021-10-26] MEDS: SODIUM CHLORIDE 0.65% NA SOLN 45 ML (OCEAN) SCH ×4 (00:02→18:11)
[2021-10-26 07:30] LABS: Hematocrit (blood only) 43.6 % (42-52); Hemoglobin 14.5 g/dL (14.0-18.0); Mean Corpuscular Hemoglobin 30.4 pg (25-34); Mean Corpuscular Hgb Conc 33.3 g/dL (32-36); Mean Corpuscular Volume 91.4 fL (80-100); Mean Platelet Volume 9.8 fL (7.4-10.4); Platelet Count 304 K/uL (130-400); RDW Coefficient of Variation 13.8 % (11.5-14.5); RDW Standard Deviation 45.4 fL (36.4-46.3); Red Blood Count 4.77 M/uL (4.7-6.1); White Blood Count 15.41 K/uL (4.8-10.8)
[2021-10-26 07:54] LABS: BUN Creatinine Ratio 31.3 (10-20); Est GFR (African American) 110.5 ml/min; Est GFR (Non-African American) 95.3 ml/min; Potassium 4.5 mmol/L (3.5-5.1)
[2021-10-26] MEDS: BENZONATATE 100 MG CAPSULE PO SCH ×3 (08:23→20:54)
[2021-10-26] MEDS: SENNA 8.6 MG TAB PO SCH (08:24)
[2021-10-26] MEDS: METOPROLOL SUCC 25MG EXT REL TAB PO SCH (08:24)
[2021-10-26] MEDS: MULTIVITAMIN TAB PO SCH (08:24)
[2021-10-26] MEDS: NICOTINE 14 MG/24 HR PATCH TD SCH (08:25)
[2021-10-26] MEDS: PANTOprazole 40 MG TAB PO SCH ×2 (08:26→20:54)
[2021-10-26] MEDS: INSULIN HUMAN NPH SC SCH (08:27)
[2021-10-26] MEDS: INSULIN GLARGINE SOLOSTAR 100 UNITS/ML 3 ML PEN SC SCH ×2 (08:28→21:07)
[2021-10-26] MEDS: INSULIN ASPART PER UNIT SC SCH ×4 (08:31→20:55)
[2021-10-26] MEDS: dexAMETHasone 6 MG in SYRINGE 0 ML IV SCH (08:35)
--- NOTE | 2021-10-26 10:33 | Pharmacy Report ---
Pharmacy Glycemic Short Note 2 - Date of Service October 26, 2021 - Glycemic Short BSG Results (Last 24 hours): 10/25/21 10/25/21 10/25/21 11:11 13:57 14:27 Glucose 124 H POC Glucose 296 H 151 H 10/25/21 10/25/21 10/26/21 16:06 20:11 07:03 Glucose 176 H POC Glucose 103 H 221 H 10/26/21 07:18 Glucose POC Glucose 182 H OUTPATIENT ANTIDIABETIC REGIMEN: * Metformin 1000 mg PO qAM, 500 mg PO qPM * Glipizide 10 mg PO BIDM * Trulicity 3 mg SC weekly on Friday * HbA1c: 9.6% (10/10/21) ASSESSMENT: 10/26/21 * Patient's BSGs yesterday were [phone] mg/dL. Patient received Solu-Medrol 40 mg and prednisone 40 mg the evening prior plus dexamethasone 6 mg IV that morning. Patient to be continued on 6 mg IV daily. * Based upon this hospitalization, basal requirements appear to be close to 55- 60 units/day. HOWEVER, patient now has NPH ordered in addition to Lantus for steroid hyperglycemia. Will aim for around 50 units of Lantus and 25 units of NPH for now. * Novolog was tightened yesterday. Will loosen CF slightly as appears patient overcorrects with CF of 15. 10/25 * Patient received Solu-Medrol 20mg IV x 1 and Prednisone 40mg PO x1 last evening, resulting in blood sugars in 200s last night and this AM * Started on Dexamethasone 6mg IV daily this morning, will add NPH to cover and tighten CR at breakfast at this time * Reduce HS Lantus, as patient will receive more basal coverage in AM with NPH and to prevent AM Hypoglycemia 10/23 * Fasting BSG 212mg/dl - increase HS Lantus dose * CR adjusted to be tighter with breakfast yesterday, no further insulin changes at this time 10/22 * BSGs improved following consult, 234, 101, 113, 162 mg/dL, fasting BSG of 136 mg/dL this morning * Received 97 units of insulin (55 units of Lantus and 42 units of prandial/correctional bolus) * Lunch BSG trending up again today, will continue current Novolog parameters, but will tighten AM parameters starting tomorrow 2/6 * CM is a 75 year old male with T2DM admitted on 10/09/21 with COVID-19 pneumonia * Last dose of IV dexamethasone was 10/18/21 * BSGs have been persistently elevated throughout admission, pharmacy consulted for glycemic management today for lunchtime BSG of 235 mg/dL * Will begin to increase basal insulin today and slightly tighten carb ratio * No other obvious stressors beyond infection * Pertinent PMH includes hypertension and hyperlipidemia PLAN FOR INPATIENT GLYCEMIC CONTROL: * Hold outpatient diabetes medications * Basal insulin * Lantus 30 units SC daily * Lantus 20 units SC HS (15 units for BSG 110mg/dl or less) * NPH 25 units SC daily with IV dexamethasone (hold if dexamethasone held) * Bolus insulin * NovoLog per scale ACHS or Q6hrs while NPO * Goal Range: Low 110 mg/dL - High 140 mg/dL * Correction Factor: 18 mg/dL/unit * Nutritional / Prandial insulin per carb ratio of 1 unit per 3 grams CHO consumed PLAN FOR DISCHARGE: * HbA1c of 9.6% suggests poor outpatient glycemic control (reasonable goal for most adults is less than 7%) * [facility] - suggest prompt follow- up with them at time of discharge * Patient would likely benefit from addition of once daily basal insulin, but will defer to their judgment * Reasonable to increase metformin to 1000 mg BIDM
[2021-10-26] MEDS ORDERED: FUROSEMIDE INJ 20 MG/2 ML VIAL IV ONE (15:55)
[2021-10-26] MEDS ORDERED: LORazepam 0.5 MG TAB PO ONE (17:37)
[2021-10-26] MEDS ORDERED: LORazepam 0.5 MG TAB ONE (17:39)
--- NOTE | 2021-10-26 18:46 | Hospitalist Progress Note ---
Date of Service October 26, 2021 Assessment & Plan (1) Acute respiratory failure with hypoxia: (2) Pneumonia due to COVID-19 virus: Plan: Patient is a 75 yr old male who has recently had COVID pneumonia, presents again with hypoxia 10/09. Acute hypoxic respiratory failure Multifocal COVID-19 pneumonia Likely superimposed bacterial pneumonia --CTA:No pulmonary emboli identified. Extensive multifocal consolidation and groundglass opacities within the lungs consistent with pneumonia. Mildly enlarged right hilar lymph nodes which are likely reactive. Circumferential wall thickening of the mid to distal esophagus. This is nonspecific but may reflect esophagitis. Small hiatal hernia. Cholelithiasis. --Repeat CTA on 10/25/20:No PE, extensive airspace opacities throughout the lungs. ARDS cannot be excluded. Mild bronchiectasis. Trace bilateral pleural effusion. No pneumothorax or pneumomediastinum noted. -CRP:16.36>13 -Completed ceftriaxone and doxycycline course Completed 10 days of dexamethasone course Continue incentive spirometry/flutter/self proning IV Lasix PRN Restarted Dexamethasone give possibility of ARDS Need to re-address goals of Care Appreciate Pulmonology Input Procalcitonin remains Negative Currently on high flow oxygen Hemoptysis Likely due to above Aspirin held Monitor CBC Antitussives No recurrence DM II Continue ISS and lantus per protocol Glycemic pharm on board for glycemic management A1c is 9.6 May need to increase metformin to 1000mg bid and needs lantus upon DC Monitor BGs Hyperlipidemia: On statin. Hypertension: On Metoprolol DVT Px: Lovenox SQ Code Status DNI only: As per my discussion with patient. Admission and Anticipated Discharge Date Admission Date: October 09, 2021 Subjective Patient is seen and examined at bedside States feeling better Currently on High flow oxygen: 40 L 65 % FiO2 Discussed with patient's family at bedside Patient continues to have cough with expectoration Denies any shortness of breath, dizziness, nausea, abdominal pain Review of Systems Review of Systems: All systems reviewed & are unremarkable except as noted in Subjective Physical Exam Physical Exam: Physical Exam: Vitals signs as noted above General Appearance:Moderately built and nourished, no apparent distress Head: normocephalic, Atraumatic Eyes: normal inspection, EOMI Neck: supple, Trachea midline Respiratory/Chest: Decreased breath sounds, mild basal crackles Cardiovascular: S1, S2, No murmur Abdomen/GI:Soft, Non tender, Bowel sounds present Extremities/Musculoskeletal:normal inspection, no edema Neurologic/Psych:AAOX3, grossly no focal neurological deficits Skin: normal color, warm Results & Data Results & Data ([facility]) Vital Signs (Past 12 Hours) Vital Signs Temp Pulse Pulse Resp BP Pulse Ox 10/26/21 16:00 101 H 21 93 10/26/21 15:27 36.5 C 99 H 19 134/74 91 10/26/21 15:00 98 H 10/26/21 11:49 36.2 C L 98 H 20 114/67 93 10/26/21 10:52 100 H 20 96 10/26/21 08:00 36.8 C 97 H 102 H 21 118/71 93 10/26/21 07:14 74 20 91 Laboratory Results Short CBC 10/26/21 Range/Units 07:03 WBC 15.41 H (4.8-10.8) K/uL Hgb 14.5 (14.0-18.0) g/dL Hct 43.6 (42-52) % Plt Count 304 (130-400) K/uL BMP 10/26/21 07:03 Sodium 138 Potassium 4.5 Chloride 99 Carbon Dioxide 33 H BUN 21 Creatinine 0.67 Glucose 176 H Calcium 9.0
[2021-10-26] MEDS: SIMVASTATIN 80 MG TAB PO SCH (20:55)
[2021-10-26] MEDS ORDERED: OLANZapine 10 MG/2.1 ML SDV IM STA (21:30)
[2021-10-27] MEDS: SODIUM CHLORIDE 0.65% NA SOLN 45 ML (OCEAN) SCH ×5 (01:03→23:37)
[2021-10-27 08:13] LABS: Hematocrit (blood only) 42.7 % (42-52); Hemoglobin 14.1 g/dL (14.0-18.0); Mean Corpuscular Hemoglobin 30.3 pg (25-34); Mean Corpuscular Volume 91.8 fL (80-100); Platelet Count 293 K/uL (130-400); RDW Coefficient of Variation 14.1 % (11.5-14.5); RDW Standard Deviation 46.8 fL (36.4-46.3); Red Blood Count 4.65 M/uL (4.7-6.1)
[2021-10-27 08:35] LABS: BUN Creatinine Ratio 36.8 (10-20); Calcium 8.5 mg/dl (8.5-10.1); Creatinine Clr Calc Pharmacy 93.6 ml/min; Est GFR (African American) 109.8 ml/min; Est GFR (Non-African American) 94.7 ml/min; Potassium 3.6 mmol/L (3.5-5.1)
[2021-10-27] MEDS ORDERED: INSULIN GLARGINE SOLOSTAR 100 UNITS/ML 3 ML PEN SC SCH ×3 (09:00→21:00)
[2021-10-27] MEDS: INSULIN ASPART PER UNIT SC SCH ×4 (09:31→20:54)
[2021-10-27] MEDS: dexAMETHasone 6 MG in SYRINGE 0 ML IV SCH (09:33)
[2021-10-27] MEDS: INSULIN HUMAN NPH SC SCH (09:33)
[2021-10-27] MEDS: ENOXAPARIN INJ 40 MG/0.4 ML SYR SQ SCH (09:40)
[2021-10-27] MEDS: BENZONATATE 100 MG CAPSULE PO SCH ×3 (09:40→20:48)
[2021-10-27] MEDS: PANTOprazole 40 MG TAB PO SCH ×2 (09:41→20:49)
[2021-10-27] MEDS: METOPROLOL SUCC 25MG EXT REL TAB PO SCH (09:43)
[2021-10-27] MEDS: NICOTINE 14 MG/24 HR PATCH TD SCH (09:43)
[2021-10-27] MEDS: SENNA 8.6 MG TAB PO SCH (09:43)
[2021-10-27] MEDS: MULTIVITAMIN TAB PO SCH (09:43)
--- NOTE | 2021-10-27 13:40 | Pharmacy Report ---
Pharmacy Glycemic Short Note 2 - Date of Service October 27, 2021 - Glycemic Short BSG Results (Last 24 hours): 10/26/21 10/26/21 10/27/21 16:17 20:37 07:10 Glucose POC Glucose 76 89 105 H 10/27/21 10/27/21 10/27/21 07:48 11:13 11:32 Glucose 150 H POC Glucose 280 H 231 H OUTPATIENT ANTIDIABETIC REGIMEN: * Metformin 1000 mg PO qAM, 500 mg PO qPM * Glipizide 10 mg PO BIDM * Trulicity 3 mg SC weekly on Friday * HbA1c: 9.6% (10/10/21) ASSESSMENT: 10/27/21 * Patient's BSGs yesterday were [phone] mg/dL and fasting today is 105 mg/dL. * Patient received 102 units of insulin yesterday (55 units of basal -- 30 units of Lantus and 25 units of NPH; 47 units of bolus). * Since patient's fasting has significantly decreased (264 --> 182 mg /dL --> 105 mg/dL), will split Lantus dosing into 15 units in the morning + 10 units in the evening (10% reduction from yesterday). This will allow for easier titration. * Reduce NPH as BSGs significantly lower yesterday. * Loosen Novolog due to lower BSGs. 10/26/21 * Patient's BSGs yesterday were [phone] mg/dL. Patient received Solu-Medrol 40 mg and prednisone 40 mg the evening prior plus dexamethasone 6 mg IV that morning. Patient to be continued on 6 mg IV daily. * Based upon this hospitalization, basal requirements appear to be close to 55- 60 units/day. HOWEVER, patient now has NPH ordered in addition to Lantus for steroid hyperglycemia. Will aim for around 50 units of Lantus and 25 units of NPH for now. * Novolog was tightened yesterday. Will loosen CF slightly as appears patient overcorrects with CF of 15. 2/10 * Patient received Solu-Medrol 20mg IV x 1 and Prednisone 40mg PO x1 last evening, resulting in blood sugars in 200s last night and this AM * Started on Dexamethasone 6mg IV daily this morning, will add NPH to cover and tighten CR at breakfast at this time * Reduce HS Lantus, as patient will receive more basal coverage in AM with NPH and to prevent AM Hypoglycemia 10/23 * Fasting BSG 212mg/dl - increase HS Lantus dose * CR adjusted to be tighter with breakfast yesterday, no further insulin changes at this time 10/22 * BSGs improved following consult, 234, 101, 113, 162 mg/dL, fasting BSG of 136 mg/dL this morning * Received 97 units of insulin (55 units of Lantus and 42 units of prandial/correctional bolus) * Lunch BSG trending up again today, will continue current Novolog parameters, but will tighten AM parameters starting tomorrow 10/21 * CM is a 75 year old male with T2DM admitted on 10/09/21 with COVID-19 pneumonia * Last dose of IV dexamethasone was 10/18/21 * BSGs have been persistently elevated throughout admission, pharmacy consulted for glycemic management today for lunchtime BSG of 235 mg/dL * Will begin to increase basal insulin today and slightly tighten carb ratio * No other obvious stressors beyond infection * Pertinent PMH includes hypertension and hyperlipidemia PLAN FOR INPATIENT GLYCEMIC CONTROL: * Hold outpatient diabetes medications * Basal insulin * Lantus 15 units SC daily * Lantus 10 units SC HS * NPH 20 units SC daily with IV dexamethasone (hold if dexamethasone held) * Bolus insulin * NovoLog per scale ACHS or Q6hrs while NPO * Goal Range: Low 110 mg/dL - High 140 mg/dL * Correction Factor: 20 mg/dL/unit (for breakfast, 15 mg/dL/unit) * Nutritional / Prandial insulin per carb ratio of 1 unit per 4 grams CHO consumed (for breakfast, 1 unit per 3 grams CHO consumed) PLAN FOR DISCHARGE: * HbA1c of 9.6% suggests poor outpatient glycemic control (reasonable goal for most adults is less than 7%) * Patient follows with [facility] clinic - suggest prompt follow- up with them at time of discharge * Patient would likely benefit from addition of once daily basal insulin, but will defer to their judgment * Reasonable to increase metformin to 1000 mg BIDM
--- NOTE | 2021-10-27 14:42 | Hospitalist Progress Note ---
Date of Service October 27, 2021 Assessment & Plan (1) Acute respiratory failure with hypoxia: (2) Pneumonia due to COVID-19 virus: Plan: Patient is a 75 yr old male who has recently had COVID pneumonia, presents again with hypoxia 10/09. Acute hypoxic respiratory failure Multifocal COVID-19 pneumonia Likely superimposed bacterial pneumonia --CTA:No pulmonary emboli identified. Extensive multifocal consolidation and groundglass opacities within the lungs consistent with pneumonia. Mildly enlarged right hilar lymph nodes which are likely reactive. Circumferential wall thickening of the mid to distal esophagus. This is nonspecific but may reflect esophagitis. Small hiatal hernia. Cholelithiasis. --Repeat CTA on 10/25/20:No PE, extensive airspace opacities throughout the lungs. ARDS cannot be excluded. Mild bronchiectasis. Trace bilateral pleural effusion. No pneumothorax or pneumomediastinum noted. -CRP:16.36>13 -Completed ceftriaxone and doxycycline course Completed 10 days of dexamethasone course Continue incentive spirometry/flutter IV Lasix PRN Restarted steroids given possibility of ARDS Appreciate Pulmonology Input Procalcitonin remains Negative Remains on on high flow oxygen Encourage to prone Started on prednisone taper course Hemoptysis Likely due to above Aspirin held Monitor CBC Antitussives PRN Hb stable DM II Continue ISS and lantus per protocol Glycemic pharm on board for glycemic management A1c is 9.6 May need to increase metformin to 1000mg bid and needs lantus upon DC Monitor BGs Hyperlipidemia: On statin. Hypertension: On Metoprolol DVT Px: Lovenox SQ Code Status DNI only: As per my discussion with patient. Admission and Anticipated Discharge Date Admission Date: October 09, 2021 Subjective Patient is seen and examined at bedside States having minimal hemoptysis intermittently Also feels very tired Currently on High flow oxygen Denies any chest pain, dyspnea, dizziness, nausea, abdominal pain Review of Systems Review of Systems: All systems reviewed & are unremarkable except as noted in Subjective Physical Exam Physical Exam: Physical Exam: Vitals signs as noted above General Appearance:Moderately built and nourished, no apparent distress Head: normocephalic, Atraumatic Eyes: normal inspection, EOMI Neck: supple, Trachea midline Respiratory/Chest: Decreased breath sounds, CTA Cardiovascular: S1, S2, No murmur Abdomen/GI:Soft, Non tender, Bowel sounds present Extremities/Musculoskeletal:normal inspection, no edema Neurologic/Psych:AAOX3, grossly no focal neurological deficits Skin: normal color, warm Results & Data Results & Data ([facility]) Vital Signs (Past 12 Hours) Vital Signs Temp Pulse Pulse Resp BP Pulse Ox 10/27/21 11:20 36.7 C 89 22 119/65 98 10/27/21 10:42 80 24 89 L 10/27/21 08:10 36.8 C 95 H 20 106/70 100 10/27/21 08:04 98 H 10/27/21 07:20 97 H 20 99 10/27/21 03:56 90 28 H 95 10/27/21 03:40 36.4 C L 91 H 20 109/68 98 Laboratory Results Short CBC 10/27/21 Range/Units 07:48 WBC 12.10 H (4.8-10.8) K/uL Hgb 14.1 (14.0-18.0) g/dL Hct 42.7 (42-52) % Plt Count 293 (130-400) K/uL BMP 10/27/21 07:48 Sodium 138 Potassium 3.6 Chloride 99 Carbon Dioxide 30 BUN 25 H Creatinine 0.68 Glucose 150 H Calcium 8.5
[2021-10-27] MEDS: SIMVASTATIN 80 MG TAB PO SCH (20:49)
[2021-10-28] MEDS ORDERED: COUGH DROP (SUGAR FREE) LOZ 24 LOZ/1 BOX BUCCAL PRN (04:46)
[2021-10-28] MEDS: SODIUM CHLORIDE 0.65% NA SOLN 45 ML (OCEAN) SCH ×3 (05:20→17:21)
[2021-10-28 08:28] LABS: BUN Creatinine Ratio 28.1 (10-20); Calcium 8.5 mg/dl (8.5-10.1); Creatinine Clr Calc Pharmacy 111.7 ml/min; Est GFR (African American) 118.1 ml/min; Est GFR (Non-African American) 101.9 ml/min; Potassium 3.8 mmol/L (3.5-5.1)
--- NOTE | 2021-10-28 09:27 | Pharmacy Report ---
Pharmacy Glycemic Short Note 2 - Date of Service October 28, 2021 - Glycemic Short BSG Results (Last 24 hours): 10/27/21 10/27/21 10/27/21 11:13 11:32 16:08 Glucose POC Glucose 280 H 231 H 81 10/27/21 10/28/21 10/28/21 20:40 07:19 07:50 Glucose 199 H POC Glucose 174 H 192 H OUTPATIENT ANTIDIABETIC REGIMEN: * Metformin 1000 mg PO qAM, 500 mg PO qPM * Glipizide 10 mg PO BIDM * Trulicity 3 mg SC weekly on Friday * HbA1c: 9.6% (10/10/21) ASSESSMENT: 10/28/21 * BSGs yesterday were [phone] mg/dL. Fasting today is 192 mg/dL. Patient changed from dexamethasone 6 mg IV daily to prednisone 40 mg daily. * Will increase Lantus back to 40 units daily. Fasting significantly elevated- Lantus 50 units daily too aggressive whereas 30 units is not sufficient. * Restart NPH 20 units daily. (0.25 units/kg) for steroid hyperglycemia. * For Novolog, will loosen CF (as patient's BSG at dinnertime was significantly decreased). Continue CR. 10/27/21 * Patient's BSGs yesterday were 983-475-32-89 mg/dL and fasting today is 105 mg/dL. * Patient received 102 units of insulin yesterday (55 units of basal -- 30 units of Lantus and 25 units of NPH; 47 units of bolus). * Since patient's fasting has significantly decreased (264 --> 182 mg /dL --> 105 mg/dL), will split Lantus dosing into 15 units in the morning + 10 units in the evening (10% reduction from yesterday). This will allow for easier titration. * Reduce NPH as BSGs significantly lower yesterday. * Loosen Novolog due to lower BSGs. 10/26/21 * Patient's BSGs yesterday were [phone] mg/dL. Patient received Solu-Medrol 40 mg and prednisone 40 mg the evening prior plus dexamethasone 6 mg IV that morning. Patient to be continued on 6 mg IV daily. * Based upon this hospitalization, basal requirements appear to be close to 55- 60 units/day. HOWEVER, patient now has NPH ordered in addition to Lantus for steroid hyperglycemia. Will aim for around 50 units of Lantus and 25 units of NPH for now. * Novolog was tightened yesterday. Will loosen CF slightly as appears patient overcorrects with CF of 15. 10/25 * Patient received Solu-Medrol 20mg IV x 1 and Prednisone 40mg PO x1 last evening, resulting in blood sugars in 200s last night and this AM * Started on Dexamethasone 6mg IV daily this morning, will add NPH to cover and tighten CR at breakfast at this time * Reduce HS Lantus, as patient will receive more basal coverage in AM with NPH and to prevent AM Hypoglycemia 10/23 * Fasting BSG 212mg/dl - increase HS Lantus dose * CR adjusted to be tighter with breakfast yesterday, no further insulin changes at this time 10/22 * BSGs improved following consult, 234, 101, 113, 162 mg/dL, fasting BSG of 136 mg/dL this morning * Received 97 units of insulin (55 units of Lantus and 42 units of prandial/correctional bolus) * Lunch BSG trending up again today, will continue current Novolog parameters, but will tighten AM parameters starting tomorrow 10/21 * CM is a 75 year old male with T2DM admitted on 10/09/21 with COVID-19 pneumonia * Last dose of IV dexamethasone was 10/18/21 * BSGs have been persistently elevated throughout admission, pharmacy consulted for glycemic management today for lunchtime BSG of 235 mg/dL * Will begin to increase basal insulin today and slightly tighten carb ratio * No other obvious stressors beyond infection * Pertinent PMH includes hypertension and hyperlipidemia PLAN FOR INPATIENT GLYCEMIC CONTROL: * Hold outpatient diabetes medications * Basal insulin * Lantus 20 units SC BID * NPH 20 units SC daily with IV dexamethasone (hold if dexamethasone held) * Bolus insulin * NovoLog per scale ACHS or Q6hrs while NPO * Goal Range: Low 110 mg/dL - High 140 mg/dL * Correction Factor: 25 mg/dL/unit (for breakfast, 20 mg/dL/unit) * Nutritional / Prandial insulin per carb ratio of 1 unit per 3 grams CHO consumed PLAN FOR DISCHARGE: * HbA1c of 9.6% suggests poor outpatient glycemic control (reasonable goal for most adults is less than 7%) * Patient follows with [facility] - suggest prompt follow- up with them at time of discharge * Patient would likely benefit from addition of once daily basal insulin, but will defer to their judgment * Reasonable to increase metformin to 1000 mg BIDM
[2021-10-28] MEDS: INSULIN ASPART PER UNIT SC SCH ×4 (09:43→21:09)
[2021-10-28] MEDS: ENOXAPARIN INJ 40 MG/0.4 ML SYR SQ SCH (09:43)
[2021-10-28] MEDS: predniSONE 20 MG TAB PO SCH (09:44)
[2021-10-28] MEDS: BENZONATATE 100 MG CAPSULE PO SCH ×3 (09:44→21:10)
[2021-10-28] MEDS: MULTIVITAMIN TAB PO SCH (09:44)
[2021-10-28] MEDS: METOPROLOL SUCC 25MG EXT REL TAB PO SCH ×2 (09:45→13:11)
[2021-10-28] MEDS: SENNA 8.6 MG TAB PO SCH (09:45)
[2021-10-28] MEDS: PANTOprazole 40 MG TAB PO SCH ×2 (09:45→21:11)
[2021-10-28] MEDS: NICOTINE 14 MG/24 HR PATCH TD SCH (09:45)
[2021-10-28] MEDS: INSULIN GLARGINE SOLOSTAR 100 UNITS/ML 3 ML PEN SC SCH ×2 (09:46→21:13)
[2021-10-28] MEDS: INSULIN HUMAN NPH SC SCH (09:46)
[2021-10-28] MEDS ORDERED: CHLORASEPTIC 1.4% SOLN 180 ML BTL MT PRN (14:23)
--- NOTE | 2021-10-28 17:11 | Hospitalist Progress Note ---
Date of Service October 28, 2021 Assessment & Plan (1) Acute respiratory failure with hypoxia: (2) Pneumonia due to COVID-19 virus: Plan: Patient is a 75 yr old male who has recently had COVID pneumonia, presents again with hypoxia 10/09. Acute hypoxic respiratory failure Multifocal COVID-19 pneumonia Likely superimposed bacterial pneumonia --CTA:No pulmonary emboli identified. Extensive multifocal consolidation and groundglass opacities within the lungs consistent with pneumonia. Mildly enlarged right hilar lymph nodes which are likely reactive. Circumferential wall thickening of the mid to distal esophagus. This is nonspecific but may reflect esophagitis. Small hiatal hernia. Cholelithiasis. --Repeat CTA on 10/25/20:No PE, extensive airspace opacities throughout the lungs. ARDS cannot be excluded. Mild bronchiectasis. Trace bilateral pleural effusion. No pneumothorax or pneumomediastinum noted. -CRP:16.36>13 -Completed ceftriaxone and doxycycline course Completed 10 days of dexamethasone course Continue incentive spirometry/flutter IV Lasix PRN Restarted steroids given possibility of ARDS Appreciate Pulmonology Input Procalcitonin remains Negative Encourage to prone Continue prednisone taper course On High flow oxygen: 40 L, 70% Fi02 Hemoptysis Likely due to above Aspirin held Monitor CBC Antitussives PRN Hb stable DM II Continue ISS and lantus per protocol Glycemic pharm on board for glycemic management A1c is 9.6 May need to increase metformin to 1000mg bid and needs lantus upon DC Monitor BGs Hyperlipidemia: On statin. Hypertension: On Metoprolol DVT Px: Lovenox SQ Code Status DNI only: As per my discussion with patient. Admission and Anticipated Discharge Date Admission Date: October 09, 2021 Subjective Patient is seen and examined at bedside Reports sore throat, generalized weakness On High flow oxygen: 40 L, 70% Fi02 Denies any chest pain, dyspnea, dizziness, nausea, abdominal pain Review of Systems Review of Systems: All systems reviewed & are unremarkable except as noted in Subjective Physical Exam Physical Exam: Physical Exam: Vitals signs as noted above General Appearance:Moderately built and nourished, no apparent distress Head: normocephalic, Atraumatic Eyes: normal inspection, EOMI Neck: supple, Trachea midline Respiratory/Chest: Decreased breath sounds, basal crackles Cardiovascular: S1, S2, No murmur Abdomen/GI:Soft, Non tender, Bowel sounds present Extremities/Musculoskeletal:normal inspection, no edema Neurologic/Psych:AAOX3, grossly no focal neurological deficits Skin: normal color, warm Results & Data Results & Data ([facility]) Vital Signs (Past 12 Hours) Vital Signs Temp Pulse Pulse Resp BP Pulse Ox 10/28/21 15:47 36.5 C 78 21 115/64 93 10/28/21 15:41 78 22 94 10/28/21 11:53 36.5 C 89 20 111/67 99 10/28/21 11:05 22 94 10/28/21 08:00 75 10/28/21 07:41 36.4 C L 79 16 118/72 93 10/28/21 07:36 87 20 88 L Laboratory Results [facility] 10/28/21 07:50 Sodium 134 L Potassium 3.8 Chloride 98 Carbon Dioxide 32 BUN 16 Creatinine 0.57 L Glucose 199 H Calcium 8.5
[2021-10-28] MEDS: SIMVASTATIN 80 MG TAB PO SCH (21:11)
[2021-10-29] MEDS: SODIUM CHLORIDE 0.65% NA SOLN 45 ML (OCEAN) SCH ×5 (00:12→23:55)
[2021-10-29 07:15] LABS: Hematocrit (blood only) 39.5 % (42-52); Hemoglobin 13.1 g/dL (14.0-18.0); Mean Corpuscular Hemoglobin 30.4 pg (25-34); Mean Corpuscular Hgb Conc 33.2 g/dL (32-36); Mean Corpuscular Volume 91.6 fL (80-100); Mean Platelet Volume 9.7 fL (7.4-10.4); Platelet Count 257 K/uL (130-400); RDW Coefficient of Variation 13.7 % (11.5-14.5); RDW Standard Deviation 45.8 fL (36.4-46.3); Red Blood Count 4.31 M/uL (4.7-6.1); White Blood Count 8.88 K/uL (4.8-10.8)
--- NOTE | 2021-10-29 07:32 | XRay Report ---
XR chest 1V portable CLINICAL HISTORY: covid. Follow-up bilateral airspace opacities COMPARISON STUDY: 10/25/2021 TECHNIQUE: 1 view of the chest FINDINGS: Single frontal view of the chest demonstrates the cardiomediastinal silhouette to be within normal li mits. Compared to the previous examination, there has been slight interval improvement in bilateral i nterstitial and alveolar opacities. No new confluent alveolar opacities are seen. There is no evidenc e for pleural effusion. There is no evidence for vascular congestion. There is no acute osseous patho logy. IMPRESSION: 1. Slight interval improvement in bilateral interstitial and alveolar opacities. ACT 112: Negative or not required by law. Electronically signed by: Darío Mcintosh M.D. 10/29/2021 7:31 AM
[2021-10-29 07:38] LABS: BUN Creatinine Ratio 25.5 (10-20); Calcium 8.3 mg/dl (8.5-10.1); Creatinine Clr Calc Pharmacy 124.8 ml/min; Est GFR (African American) 123.6 ml/min; Est GFR (Non-African American) 106.6 ml/min; Potassium 3.8 mmol/L (3.5-5.1)
[2021-10-29] MEDS: INSULIN ASPART PER UNIT SC SCH ×4 (08:20→20:30)
[2021-10-29] MEDS: PANTOprazole 40 MG TAB PO SCH ×2 (08:27→20:24)
[2021-10-29] MEDS: ENOXAPARIN INJ 40 MG/0.4 ML SYR SQ SCH (08:27)
[2021-10-29] MEDS: NICOTINE 14 MG/24 HR PATCH TD SCH (08:28)
[2021-10-29] MEDS: BENZONATATE 100 MG CAPSULE PO SCH ×3 (08:28→20:24)
[2021-10-29] MEDS: predniSONE 20 MG TAB PO SCH (08:28)
[2021-10-29] MEDS: MULTIVITAMIN TAB PO SCH (08:29)
[2021-10-29] MEDS: SENNA 8.6 MG TAB PO SCH (08:29)
[2021-10-29] MEDS: METOPROLOL SUCC 25MG EXT REL TAB PO SCH (08:29)
[2021-10-29] MEDS: INSULIN GLARGINE SOLOSTAR 100 UNITS/ML 3 ML PEN SC SCH ×2 (09:30→20:24)
[2021-10-29] MEDS: INSULIN HUMAN NPH SC SCH (09:31)
--- NOTE | 2021-10-29 13:50 | Pharmacy Report ---
Pharmacy Glycemic Short Note 2 - Date of Service October 29, 2021 - Glycemic Short BSG Results (Last 24 hours): 10/28/21 10/28/21 10/28/21 16:01 16:02 16:20 Glucose POC Glucose 63 L* 68 L* 68 L* 10/28/21 10/28/21 10/29/21 16:20 20:51 06:49 Glucose 172 H POC Glucose 77 187 H 10/29/21 10/29/21 07:07 11:42 Glucose POC Glucose 165 H 150 H OUTPATIENT ANTIDIABETIC REGIMEN: * Metformin 1000 mg PO qAM, 500 mg PO qPM * Glipizide 10 mg PO BIDM * Trulicity 3 mg SC weekly on Friday * HbA1c: 9.6% (10/10/21) ASSESSMENT: 10/29/21 * BSGs yesterday were [phone] mg/dL. Today's fasting is 165 mg/dL. * Received 94 units of insulin yesterday - 40 basal and 54 bolus * Will keep 20 units BID basal today * Patient on a prednisone taper that is starting with 40mg daily x 2 days and then decreasing. 40mg given this AM. NPH added at 15 units with morning prednisone dose. Decreased from 20 units of NPH due to yesterday's dinner low * CF/CR at breakfast is 20 and 3, respectively to help with lunch time "highs" he is experiencing. CF/CR for other 3 checks is 25 and 7, respectively. This is loosened to help prevent the lows that occur in the evening hours. 10/28/21 * BSGs yesterday were 220-482-14-174 mg/dL. Fasting today is 192 mg/dL. Patient changed from dexamethasone 6 mg IV daily to prednisone 40 mg daily. * Will increase Lantus back to 40 units daily. Fasting significantly elevated- Lantus 50 units daily too aggressive whereas 30 units is not sufficient. * Restart NPH 20 units daily. (0.25 units/kg) for steroid hyperglycemia. * For Novolog, will loosen CF (as patient's BSG at dinnertime was significantly decreased). Continue CR. 10/27/21 * Patient's BSGs yesterday were 788-903-91-89 mg/dL and fasting today is 105 mg/dL. * Patient received 102 units of insulin yesterday (55 units of basal -- 30 units of Lantus and 25 units of NPH; 47 units of bolus). * Since patient's fasting has significantly decreased (264 --> 182 mg /dL --> 105 mg/dL), will split Lantus dosing into 15 units in the morning + 10 units in the evening (10% reduction from yesterday). This will allow for easier titration. * Reduce NPH as BSGs significantly lower yesterday. * Loosen Novolog due to lower BSGs. 10/26/21 * Patient's BSGs yesterday were [phone] mg/dL. Patient received Solu-Medrol 40 mg and prednisone 40 mg the evening prior plus dexamethasone 6 mg IV that morning. Patient to be continued on 6 mg IV daily. * Based upon this hospitalization, basal requirements appear to be close to 55- 60 units/day. HOWEVER, patient now has NPH ordered in addition to Lantus for steroid hyperglycemia. Will aim for around 50 units of Lantus and 25 units of NPH for now. * Novolog was tightened yesterday. Will loosen CF slightly as appears patient overcorrects with CF of 15. 10/25 * Patient received Solu-Medrol 20mg IV x 1 and Prednisone 40mg PO x1 last evening, resulting in blood sugars in 200s last night and this AM * Started on Dexamethasone 6mg IV daily this morning, will add NPH to cover and tighten CR at breakfast at this time * Reduce HS Lantus, as patient will receive more basal coverage in AM with NPH and to prevent AM Hypoglycemia 10/23 * Fasting BSG 212mg/dl - increase HS Lantus dose * CR adjusted to be tighter with breakfast yesterday, no further insulin changes at this time 10/22 * BSGs improved following consult, 234, 101, 113, 162 mg/dL, fasting BSG of 136 mg/dL this morning * Received 97 units of insulin (55 units of Lantus and 42 units of prandial/correctional bolus) * Lunch BSG trending up again today, will continue current Novolog parameters, but will tighten AM parameters starting tomorrow 10/21 * CM is a 75 year old male with T2DM admitted on 10/09/21 with COVID-19 pneumonia * Last dose of IV dexamethasone was 2/3/22 * BSGs have been persistently elevated throughout admission, pharmacy consulted for glycemic management today for lunchtime BSG of 235 mg/dL * Will begin to increase basal insulin today and slightly tighten carb ratio * No other obvious stressors beyond infection * Pertinent PMH includes hypertension and hyperlipidemia PLAN FOR INPATIENT GLYCEMIC CONTROL: * Hold outpatient diabetes medications * Basal insulin * Lantus 20 units SC BID * NPH 20 units SC daily with IV dexamethasone (hold if dexamethasone held) * Bolus insulin * NovoLog per scale ACHS or Q6hrs while NPO * Goal Range: Low 110 mg/dL - High 140 mg/dL * Correction Factor: 25 mg/dL/unit (for breakfast, 20 mg/dL/unit) * Nutritional / Prandial insulin per carb ratio of 1 unit per 3 grams CHO consumed PLAN FOR DISCHARGE: * HbA1c of 9.6% suggests poor outpatient glycemic control (reasonable goal for most adults is less than 7%) * Patient follows with [facility] - suggest prompt follow- up with them at time of discharge * Patient would likely benefit from addition of once daily basal insulin, but will defer to their judgment * Reasonable to increase metformin to 1000 mg BIDM
--- NOTE | 2021-10-29 14:43 | Hospitalist Progress Note ---
Date of Service October 29, 2021 Assessment & Plan (1) Acute respiratory failure with hypoxia: Plan: -Currently on FIO 2- 75% and 50L/min High flow -wean oxygen as tolerated -Once /if he reaches 6L NC, we can plan for home oxygen arrangements and discharge planning. This was discussed with patient and . (2) Pneumonia due to COVID-19 virus: Plan: -History of Covid 19 multifocal pneumonia, symptoms began mid August. Patient diagnosed 09/27/2021 -repeat CTA chest negative for PE but shows multifocal pneumonia, concern for ARDS -most repeat CXR shows mildly improved consolidations -completed 10 days of decadron. Restarted steroids (prednisone 40mg daily) due to concern for ARDS. -completed course of ceftriaxone and doxycycline. Procalcitonin was negative however -patient educated on self proning, incentive spirometry, aerobik use Plan: Hemoptysis, resolved Likely due to above Aspirin held Monitor CBC Antitussives PRN Hb stable DM II Continue ISS and lantus per protocol Glycemic pharm on board for glycemic management A1c is 9.6 May need to increase metformin to 1000mg bid and needs lantus upon DC Monitor BGs Hyperlipidemia: On statin. Hypertension: On Metoprolol DVT Px: Lovenox SQ Code Status DNI only: As per my discussion with patient. Admission and Anticipated Discharge Date Admission Date: October 09, 2021 Subjective Feels well. Remains on high Flow- FIO2- 75% and 50L/min at bedside and asking if she can take him home patient inquiring how much longer he needs to remain in the hospital Physical Exam Physical Exam: No acute distress. Sitting in bed, currently on high flow Respiratory: Poor airflow. No audible wheezing/rhonchi/rales Cardiovascular: regular rate and rhythm, no murmurs/rubs/gallops Gastrointestinal (Abdomen): soft, non tender Musculoskeletal: no edema, no cyanosis Neurologic: awake, alert, spontaneously moving all extremities Results & Data Results & Data ([facility]) Vital Signs (Past 12 Hours) Vital Signs Temp Pulse Pulse Resp BP Pulse Ox 10/29/21 11:25 37.0 C 87 20 110/69 96 10/29/21 10:50 92 H 20 97 10/29/21 07:30 87 20 92 10/29/21 07:25 78 10/29/21 05:12 36.5 C 81 18 116/67 97 10/29/21 02:59 88 18 91 Laboratory Results Short CBC 10/29/21 Range/Units 06:49 WBC 8.88 (4.8-10.8) K/uL Hgb 13.1 L (14.0-18.0) g/dL Hct 39.5 L (42-52) % Plt Count 257 (130-400) K/uL BMP 10/29/21 06:49 Sodium 137 Potassium 3.8 Chloride 101 Carbon Dioxide 30 BUN 13 Creatinine 0.51 L Glucose 172 H Calcium 8.3 L Medications Administered Current Inpatient Medications Acetaminophen (Acetaminophen 325 Mg Tab) 650 mg PO Q4H PRN PRN Reason: Pain or Fever Stop: 11/08/21 08:30 Aspirin (Aspirin 81 Mg Ectab) 81 mg PO DAILY NEETA Stop: 11/08/21 08:59 Last Admin: 10/24/21 08:42 Dose: 81 mg Documented by: Benzonatate (Benzonatate 100 Mg Capsule) 100 mg PO TID NEETA Stop: 11/24/21 20:59 Last Admin: 10/29/21 08:28 Dose: 100 mg Documented by: Dextromethorphan Polymer Complex (Dextromethorphan Polymr Complx 30 Mg/5 Ml Udp) 30 mg PO Q6H PRN PRN Reason: Cough Stop: 11/24/21 16:09 Dextrose (Dextrose 50% 50 Ml Syringe) 25 - 50 ml IV UD PRN; Protocol PRN Reason: Hypoglycemia Protocol Stop: 11/23/21 05:44 Enoxaparin Sodium (Enoxaparin Inj 40 Mg/0.4 Ml Syr) 40 mg SQ Q24H NEETA Stop: 11/08/21 08:30 Last Admin: 10/29/21 08:27 Dose: 40 mg Documented by: Glucagon (Glucagon For Inj 1 Mg Vial) 1 mg IM UD PRN; Protocol PRN Reason: Hypoglycemia Protocol Stop: 11/23/21 05:44 Glucose (Glucose 40% Gel 15 Gm Tube) 15 - 30 gm PO UD PRN; Protocol PRN Reason: Hypoglycemia Protocol Stop: 11/23/21 05:44 Glucose (Glucose 10 Tabs/Tube) 4 - 8 tabs PO UD PRN; Protocol PRN Reason: Hypoglycemia Protocol Stop: 11/23/21 05:44 Guaifenesin (Guaifenesin 200 Mg Tab) 200 mg PO Q6H PRN PRN Reason: cough Stop: 11/08/21 08:30 Last Admin: 10/10/21 08:47 Dose: 200 mg Documented by: Insulin Aspart (Insulin Aspart Per Unit) 0 units SC 1130,1630,2100 [facility] Stop: 11/15/21 20:34 Last Admin: 10/29/21 12:04 Dose: 7 units Documented by: Insulin Aspart (Insulin Aspart Per Unit) 0 units SC 0730 [facility] Stop: 11/22/21 07:29 Last Admin: 10/29/21 08:20 Dose: 21 units Documented by: Insulin Glargine (Insulin Glargine Solostar 100 Units/Ml 3 Ml Pen) 20 units SC BID [facility] Stop: 11/27/21 08:59 Last Admin: 10/29/21 09:30 Dose: 20 units Documented by: Insulin Human NPH (Insulin Human Nph) 15 units SC DAILY [facility]; Protocol Stop: 11/28/21 08:59 Last Admin: 10/29/21 09:31 Dose: 15 units Documented by: Levalbuterol HCl (Levalbuterol Hcl 1.25 Mg/3 Ml Neb) 1.25 mg NEB Q4H PRN; Protocol PRN Reason: Shortness Of Breath Or Wheezing Stop: 11/08/21 08:30 Melatonin (Melatonin 3 Mg Tab) 3 mg PO HS PRN PRN Reason: Sleep Stop: 11/23/21 16:56 Last Admin: 10/24/21 21:44 Dose: 3 mg Documented by: Menthol (Cough Drop (Sugar Free) Milo 24 Milo/1 Box) 1 milo BUCCAL UD PRN PRN Reason: Cough Stop: 11/27/21 04:45 Metoprolol Succinate (Metoprolol Succ 25mg Ext Rel Tab) 25 mg PO DAILY [facility] Stop: 11/08/21 08:59 Last Admin: 10/29/21 08:29 Dose: 25 mg Documented by: Miscellaneous (Carbohydrates For Hypoglycemia ) 15 - 30 gm PO UD PRN PRN Reason: Hypoglycemia Treatment Stop: 11/23/21 05:44 Last Admin: 10/28/21 16:05 Dose: 15 gm Documented by: Miscellaneous (Remove Nicoderm Patch) 1 ea N/A DAILY@0859 [facility] Stop: 11/25/21 08:58 Last Admin: 10/29/21 08:30 Dose: 1 ea Documented by: Miscellaneous Information (Pharmacy Glycemic Mgmt Consult) 1 ea N/A UD PRN PRN Reason: Consult Stop: 11/20/21 14:06 Multivitamins (Multivitamin Tab) 1 tab PO DAILY [facility] Stop: 11/08/21 08:59 Last Admin: 10/29/21 08:29 Dose: 1 tab Documented by: Nicotine (Nicotine 14 Mg/24 Hr Patch) 14 mg TD QAM [facility] Stop: 11/24/21 14:59 Last Admin: 10/29/21 08:28 Dose: 14 mg Documented by: Nitroglycerin (Nitroglycerin Sl 0.4 Mg/Tab Tab) 0.4 mg SL UD PRN PRN Reason: Chest Pain Stop: 11/08/21 08:30 Pantoprazole Sodium (Pantoprazole 40 Mg Tab) 40 mg PO BID [facility] Stop: 11/08/21 08:59 Last Admin: 10/29/21 08:27 Dose: 40 mg Documented by: Phenol (Chloraseptic 1.4% Soln 180 Ml Btl) 2 sprays MT Q8H PRN PRN Reason: Sorethroat Stop: 11/27/21 14:22 Last Admin: 10/29/21 02:00 Dose: 2 sprays Documented by: Polyethylene Glycol (Polyethylene (Miralax) 17 Gm Pack) 17 gm PO DAILY PRN PRN Reason: Constipation Stop: 11/18/21 22:41 Last Admin: 10/22/21 20:59 Dose: 17 gm Documented by: Prednisone (Prednisone 20 Mg Tab) 40 mg PO DAILY [facility]; Taper Stop: 11/05/21 08:59 Last Admin: 10/29/21 08:28 Dose: 40 mg Documented by: Sennosides (Senna 8.6 Mg Tab) 8.6 mg PO QAM [facility] Stop: 11/19/21 10:29 Last Admin: 10/29/21 08:29 Dose: 8.6 mg Documented by: Simvastatin (Simvastatin 80 Mg Tab) 80 mg PO HS [facility] Stop: 11/08/21 20:59 Last Admin: 10/28/21 21:11 Dose: 80 mg Documented by: Sodium Chloride (Sodium Chloride 0.65% Na Soln 45 Ml ([place])) 2 sprays NA Q6 [facility] Stop: 11/14/21 12:44 Last Admin: 10/29/21 12:05 Dose: 2 sprays Documented by:
[2021-10-29] MEDS: SIMVASTATIN 80 MG TAB PO SCH (20:25)
[2021-10-30] MEDS: SODIUM CHLORIDE 0.65% NA SOLN 45 ML (OCEAN) SCH ×4 (05:10→23:23)
[2021-10-30] MEDS: INSULIN ASPART PER UNIT SC SCH ×4 (08:09→20:08)
[2021-10-30] MEDS: INSULIN GLARGINE SOLOSTAR 100 UNITS/ML 3 ML PEN SC SCH ×2 (08:11→20:09)
[2021-10-30] MEDS: INSULIN HUMAN NPH SC SCH (08:12)
[2021-10-30] MEDS: ENOXAPARIN INJ 40 MG/0.4 ML SYR SQ SCH (08:13)
[2021-10-30] MEDS: predniSONE 20 MG TAB PO SCH (08:13)
[2021-10-30] MEDS: METOPROLOL SUCC 25MG EXT REL TAB PO SCH (08:14)
[2021-10-30] MEDS: SENNA 8.6 MG TAB PO SCH (08:15)
[2021-10-30] MEDS: NICOTINE 14 MG/24 HR PATCH TD SCH (08:15)
[2021-10-30] MEDS: PANTOprazole 40 MG TAB PO SCH ×2 (08:16→20:10)
[2021-10-30] MEDS: BENZONATATE 100 MG CAPSULE PO SCH ×3 (08:16→20:09)
[2021-10-30] MEDS: MULTIVITAMIN TAB PO SCH (08:16)
[2021-10-30 08:24] LABS: Creatinine Clr Calc Pharmacy 113.7 ml/min; Est GFR (African American) 118.9 ml/min; Est GFR (Non-African American) 102.6 ml/min
[2021-10-30] MEDS ORDERED: LORazepam 0.5 MG TAB PO PRN (14:34)
[2021-10-30] MEDS ORDERED: traZODone HCL 50 MG TAB PO PRN (14:35)
--- NOTE | 2021-10-30 17:25 | Hospitalist Progress Note ---
Date of Service October 30, 2021 Assessment & Plan (1) Acute respiratory failure with hypoxia: Plan: -wean oxygen as tolerated -Once /if he reaches 6L NC, we can plan for home oxygen arrangements and discharge planning. This was discussed with patient and . -trial of ativan 0.5mg PO TID PRN for anxiety to help with breathing (2) Pneumonia due to COVID-19 virus: Plan: -History of Covid 19 multifocal pneumonia, symptoms began mid August. Patient diagnosed 09/27/2021 -repeat CTA chest negative for PE but shows multifocal pneumonia, concern for ARDS -most repeat CXR shows mildly improved consolidations -completed 10 days of decadron. Restarted steroids (prednisone 40mg daily) due to concern for ARDS. -completed course of ceftriaxone and doxycycline. Procalcitonin was negative however -patient educated on self proning, incentive spirometry, aerobik use Plan: Hemoptysis, resolved Likely due to above Aspirin held Monitor CBC Antitussives PRN Hb stable DM II Continue ISS and lantus per protocol Glycemic pharm on board for glycemic management A1c is 9.6 May need to increase metformin to 1000mg bid and needs lantus upon DC Monitor BGs Hyperlipidemia: On statin. Hypertension: On Metoprolol Insomnia -Trazodone ordered PRN DVT Px: Lovenox SQ Code Status DNI only: As per my discussion with patient. Admission and Anticipated Discharge Date Admission Date: October 09, 2021 Subjective Attempted to wean to oxymizer today did not go well. Patient became very anxious and tachypneic Now back on high flow also reports that he has not slept entire hospital course. Asking for sleep medication Physical Exam Constitutional: Appears anxious, dyspneic Respiratory: rapid, shallow breathing, no wheezing/rhonchi Cardiovascular: regular rate and rhythm, no murmurs/rubs/gallops Musculoskeletal: soft, non tender Neurologic: awake, alert Psychiatric: anxious Results & Data Results & Data ([facility]) Vital Signs (Past 12 Hours) Vital Signs Temp Pulse Pulse Resp BP Pulse Ox 10/30/21 17:00 95 H 22 86 L 10/30/21 16:12 36.6 C 98 H 18 94/64 L 95 10/30/21 16:00 97 H 10/30/21 11:19 36.3 C L 98 H 22 109/63 94 10/30/21 08:10 36.7 C 105 H 21 112/65 90 10/30/21 08:00 81 10/30/21 07:25 88 20 93 Laboratory Results BMP 10/30/21 07:20 Creatinine 0.56 L Medications Administered Current Inpatient Medications Acetaminophen (Acetaminophen 325 Mg Tab) 650 mg PO Q4H PRN PRN Reason: Pain or Fever Stop: 11/08/21 08:30 Last Admin: 10/30/21 05:10 Dose: 650 mg Documented by: Aspirin (Aspirin 81 Mg Ectab) 81 mg PO DAILY [facility] Stop: 11/08/21 08:59 Last Admin: 10/24/21 08:42 Dose: 81 mg Documented by: Benzonatate (Benzonatate 100 Mg Capsule) 100 mg PO TID [facility] Stop: 11/24/21 20:59 Last Admin: 10/30/21 14:10 Dose: 100 mg Documented by: Dextromethorphan Polymer Complex (Dextromethorphan Polymr Complx 30 Mg/5 Ml Udp) 30 mg PO Q6H PRN PRN Reason: Cough Stop: 11/24/21 16:09 Dextrose (Dextrose 50% 50 Ml Syringe) 25 - 50 ml IV UD PRN; Protocol PRN Reason: Hypoglycemia Protocol Stop: 11/23/21 05:44 Enoxaparin Sodium (Enoxaparin Inj 40 Mg/0.4 Ml Syr) 40 mg SQ Q24H [facility] Stop: 11/08/21 08:30 Last Admin: 10/30/21 08:13 Dose: 40 mg Documented by: Glucagon (Glucagon For Inj 1 Mg Vial) 1 mg IM UD PRN; Protocol PRN Reason: Hypoglycemia Protocol Stop: 11/23/21 05:44 Glucose (Glucose 40% Gel 15 Gm Tube) 15 - 30 gm PO UD PRN; Protocol PRN Reason: Hypoglycemia Protocol Stop: 11/23/21 05:44 Glucose (Glucose 10 Tabs/Tube) 4 - 8 tabs PO UD PRN; Protocol PRN Reason: Hypoglycemia Protocol Stop: 11/23/21 05:44 Guaifenesin (Guaifenesin 200 Mg Tab) 200 mg PO Q6H PRN PRN Reason: cough Stop: 11/08/21 08:30 Last Admin: 10/10/21 08:47 Dose: 200 mg Documented by: Insulin Aspart (Insulin Aspart Per Unit) 0 units SC 1130,1630,2100 [facility] Stop: 11/15/21 20:34 Last Admin: 10/30/21 17:21 Dose: 8 units Documented by: Insulin Aspart (Insulin Aspart Per Unit) 0 units SC 0730 [facility] Stop: 11/22/21 07:29 Last Admin: 10/30/21 08:09 Dose: 24 units Documented by: Insulin Glargine (Insulin Glargine Solostar 100 Units/Ml 3 Ml Pen) 20 units SC BID [facility] Stop: 11/27/21 08:59 Last Admin: 10/30/21 08:11 Dose: 20 units Documented by: Insulin Human NPH (Insulin Human Nph) 15 units SC DAILY [facility]; Protocol Stop: 11/28/21 08:59 Last Admin: 10/30/21 08:12 Dose: 15 units Documented by: Levalbuterol HCl (Levalbuterol Hcl 1.25 Mg/3 Ml Neb) 1.25 mg NEB Q4H PRN; Protocol PRN Reason: Shortness Of Breath Or Wheezing Stop: 11/08/21 08:30 Lorazepam (Lorazepam 0.5 Mg Tab) 0.5 mg PO TID PRN PRN Reason: Anxiety Stop: 11/29/21 14:33 Last Admin: 10/30/21 15:00 Dose: 0.5 mg Documented by: Melatonin (Melatonin 3 Mg Tab) 3 mg PO HS PRN PRN Reason: Sleep Stop: 11/23/21 16:56 Last Admin: 10/24/21 21:44 Dose: 3 mg Documented by: Menthol (Cough Drop (Sugar Free) Milo 24 Milo/1 Box) 1 milo BUCCAL UD PRN PRN Reason: Cough Stop: 11/27/21 04:45 Metoprolol Succinate (Metoprolol Succ 25mg Ext Rel Tab) 25 mg PO DAILY [facility] Stop: 11/08/21 08:59 Last Admin: 10/30/21 08:14 Dose: 25 mg Documented by: Miscellaneous (Carbohydrates For Hypoglycemia ) 15 - 30 gm PO UD PRN PRN Reason: Hypoglycemia Treatment Stop: 11/23/21 05:44 Last Admin: 10/28/21 16:05 Dose: 15 gm Documented by: Miscellaneous (Remove Nicoderm Patch) 1 ea N/A DAILY@0859 [facility] Stop: 11/25/21 08:58 Last Admin: 10/30/21 08:16 Dose: 1 ea Documented by: Miscellaneous Information (Pharmacy Glycemic Mgmt Consult) 1 ea N/A UD PRN PRN Reason: Consult Stop: 11/20/21 14:06 Multivitamins (Multivitamin Tab) 1 tab PO DAILY [facility] Stop: 11/08/21 08:59 Last Admin: 10/30/21 08:16 Dose: 1 tab Documented by: Nicotine (Nicotine 14 Mg/24 Hr Patch) 14 mg TD QAM [facility] Stop: 11/24/21 14:59 Last Admin: 10/30/21 08:15 Dose: 14 mg Documented by: Nitroglycerin (Nitroglycerin Sl 0.4 Mg/Tab Tab) 0.4 mg SL UD PRN PRN Reason: Chest Pain Stop: 11/08/21 08:30 Pantoprazole Sodium (Pantoprazole 40 Mg Tab) 40 mg PO BID [facility] Stop: 11/08/21 08:59 Last Admin: 10/30/21 08:16 Dose: 40 mg Documented by: Phenol (Chloraseptic 1.4% Soln 180 Ml Btl) 2 sprays MT Q8H PRN PRN Reason: Sorethroat Stop: 11/27/21 14:22 Last Admin: 10/29/21 02:00 Dose: 2 sprays Documented by: Polyethylene Glycol (Polyethylene (Miralax) 17 Gm Pack) 17 gm PO DAILY PRN PRN Reason: Constipation Stop: 11/18/21 22:41 Last Admin: 10/22/21 20:59 Dose: 17 gm Documented by: Prednisone (Prednisone 20 Mg Tab) 30 mg PO DAILY [facility]; Taper Stop: 11/05/21 08:59 Last Admin: 10/30/21 08:13 Dose: 30 mg Documented by: Sennosides (Senna 8.6 Mg Tab) 8.6 mg PO QAM [facility] Stop: 11/19/21 10:29 Last Admin: 10/30/21 08:15 Dose: 8.6 mg Documented by: Simvastatin (Simvastatin 80 Mg Tab) 80 mg PO HS [facility] Stop: 11/08/21 20:59 Last Admin: 10/29/21 20:25 Dose: 80 mg Documented by: Sodium Chloride (Sodium Chloride 0.65% Na Soln 45 Ml (Bee)) 2 sprays NA Q6 [facility] Stop: 11/14/21 12:44 Last Admin: 10/30/21 17:32 Dose: 2 sprays Documented by: Trazodone HCl (Trazodone Hcl 50 Mg Tab) 25 mg PO HS PRN PRN Reason: Insomnia Stop: 11/29/21 14:34
[2021-10-30] MEDS: SIMVASTATIN 80 MG TAB PO SCH (20:10)
[2021-10-30] MEDS: LORazepam 0.5 MG TAB PO PRN (20:14)
[2021-10-30] MEDS: DEXTROMETHORPHAN POLYMR COMPLX 30 MG/5 ML UDP PO PRN (23:24)
[2021-10-31] MEDS: LORazepam 0.5 MG TAB PO PRN ×2 (00:34→09:09)
[2021-10-31] MEDS ORDERED: OLANZapine 10 MG/2.1 ML SDV IM STA (01:59)
[2021-10-31] MEDS ORDERED: XOPENEX/ATROVENT 1.25mg/0.5MG NEB COMBO NEB STA (02:01)
[2021-10-31] MEDS ORDERED: MAGNESIUM SULFATE / D5W 1 GM/100 ML BAG IV ONE (02:02)
[2021-10-31] MEDS ORDERED: IPRATROPIUM BROMIDE NEB SOLN 0.02% 2.5 ML VIAL INH STA (02:05)
[2021-10-31] MEDS ORDERED: methylPREDNISolone 40 MG in SYRINGE 0 ML IV STA (02:05)
[2021-10-31] MEDS ORDERED: LEVALBUTEROL 1.25MG/0.5ML NEB INH STA (02:06)
[2021-10-31] MEDS ORDERED: FUROSEMIDE INJ 20 MG/2 ML VIAL IV ONE (02:20)
[2021-10-31 02:57] LABS: Eosinophils # (auto) 0.21 K/uL (0-0.5); Eosinophils % (auto) 1.8 %; Hemoglobin 13.9 g/dL (14.0-18.0); Immature Granulocytes # (auto) 0.04 K/uL (0.00-0.02); Immature Granulocytes % (auto) 0.3 %; Lymphocytes # (auto) 1.33 K/uL (1.2-3.4); Lymphocytes % (auto) 11.4 %; Mean Corpuscular Hemoglobin 30.2 pg (25-34); Mean Corpuscular Hgb Conc 33.1 g/dL (32-36); Mean Corpuscular Volume 91.3 fL (80-100); Mean Platelet Volume 9.4 fL (7.4-10.4); Monocytes # (auto) 0.91 K/uL (0.11-0.59); Monocytes % (auto) 7.8 %; Neutrophils # (auto) 9.17 K/uL (1.4-6.5); Neutrophils % (auto) 78.7 %; Platelet Count 281 K/uL (130-400); RDW Coefficient of Variation 13.9 % (11.5-14.5); RDW Standard Deviation 46.4 fL (36.4-46.3); White Blood Count 11.66 K/uL (4.8-10.8)
[2021-10-31 03:06] LABS: Base Excess ABG 6.1 mEq/L (-9-1.8); HCO3 ABG 29 mmol/L (19-24); Oxygen Saturation ABG 99.3 % (90-95); PCO2 ABG 38 mmHg (35-46); PO2 ABG 160 mmHg (80-95)
[2021-10-31 03:07] LABS: pH ABG 7.51 (7.35-7.45)
[2021-10-31] MEDS ORDERED: METOPROLOL TARTRATE 1 MG/ML VIAL IV STA (03:07)
[2021-10-31 03:08] LABS: Allen Test Pos (Pos)
[2021-10-31 03:17] LABS: Albumin Globulin Ratio 0.9 (0.9-2); Bilirubin,Total 0.7 mg/dl (0.2-1.0); C Reactive Protein 5.69 mg/dl (0-0.5); Calcium 8.4 mg/dl (8.5-10.1); Creatinine Clr Calc Pharmacy 127.3 ml/min; Est GFR (African American) 124.6 ml/min; Est GFR (Non-African American) 107.5 ml/min; Globulin 3.5 gm/dl (2.5-4.0); Magnesium 1.8 mg/dl (1.7-2.4); Partial Thromboplastin Ratio 1.1; Partial Thromboplastin Time 28.5 Seconds (21.0-31.0); Potassium 3.7 mmol/L (3.5-5.1); Total Protein 6.5 gm/dl (6.0-8.3)
[2021-10-31] MEDS: POTASSIUM CHLORIDE / WTR 10 MEQ/100 ML PLCT IV SCH ×4 (04:13→07:37)
[2021-10-31] MEDS: SODIUM CHLORIDE 0.65% NA SOLN 45 ML (OCEAN) SCH ×4 (05:33→22:42)
--- NOTE | 2021-10-31 06:46 | XRay Report ---
XR chest 1V portable HISTORY: 75 years-old Male low o2 acute shortness of breath. COVID Positive. COMPARISON: Chest radiograph 10/29/2021 TECHNIQUE: Portable AP view of the chest FINDINGS: The cardiac silhouette is enlarged. Mixed interstitial and alveolar opacities redemonstrated and appe ar to have mildly progressed within the left upper lung and are otherwise stable. Mild right hemidiap hragmatic elevation. No pneumothorax or large pleural effusion. Degenerative changes of the shoulders and spine. IMPRESSION: Cardiomegaly with extensive mixed interstitial and alveolar opacities redemonstrated, sli ghtly progressed within the left upper lung. ACT 112: Negative or not required by law. The above report was generated using voice recognition software. It may contain grammatical, syntax o r spelling errors. Electronically signed by: Cedrick Hrary M.D. 10/31/2021 6:44 AM
[2021-10-31] MEDS: INSULIN ASPART PER UNIT SC SCH ×4 (08:13→21:08)
[2021-10-31] MEDS ORDERED: POTASSIUM CHLORIDE / WTR 10 MEQ/100 ML PLCT IV SCH (08:15)
[2021-10-31] MEDS: ENOXAPARIN INJ 40 MG/0.4 ML SYR SQ SCH (08:18)
[2021-10-31] MEDS: MULTIVITAMIN TAB PO SCH (08:20)
[2021-10-31] MEDS: SENNA 8.6 MG TAB PO SCH (08:20)
[2021-10-31] MEDS: PANTOprazole 40 MG TAB PO SCH ×2 (08:20→20:05)
[2021-10-31] MEDS: BENZONATATE 100 MG CAPSULE PO SCH ×3 (08:20→20:05)
[2021-10-31] MEDS: METOPROLOL SUCC 25MG EXT REL TAB PO SCH (08:21)
[2021-10-31] MEDS: NICOTINE 14 MG/24 HR PATCH TD SCH (08:21)
[2021-10-31] MEDS: INSULIN HUMAN NPH SC SCH (08:51)
[2021-10-31] MEDS: INSULIN GLARGINE SOLOSTAR 100 UNITS/ML 3 ML PEN SC SCH ×2 (08:51→21:09)
--- NOTE | 2021-10-31 09:28 | Hospitalist Progress Note ---
Date of Service October 31, 2021 Assessment & Plan (1) Acute respiratory failure with hypoxia: Plan: -wean oxygen as tolerated -ativan 0.5mg Q4 PRN for anxiety started yesterday--will reduce to Q 6PRN -now back on high flow 55L/min--> 50L/min -CXR shows extensive disease -labwork reviewed. Inflammatory markers down trending. Procalcitonin remains negative. -will trend labwork, check BNP, CRP, D dimer tomorrow (2) Pneumonia due to COVID-19 virus: Plan: -History of Covid 19 multifocal pneumonia, symptoms began mid August. Patient diagnosed 09/27/2021 -repeat CTA chest negative for PE but shows multifocal pneumonia, concern for ARDS -most repeat CXR shows mildly improved consolidations -completed 10 days of decadron. Restarted steroids (prednisone 40mg daily) due to concern for ARDS. -completed course of ceftriaxone and doxycycline. Procalcitonin was negative however -patient educated on self proning, incentive spirometry, aerobik use Plan: Delirium -due to prolonged hospital course -appears to be confused, hallucinating at night time -will do trial of seroquel 25mg QHS which will help with sleep as well as emelina lucinations Inmsomnia -trial of trazodone yesterday, will d/c trazodone and try seroquel which will help with hallucinations Hemoptysis, resolved Likely due to above Aspirin held Monitor CBC Antitussives PRN Hb stable DM II Continue ISS and lantus per protocol Glycemic pharm on board for glycemic management A1c is 9.6 May need to increase metformin to 1000mg bid and needs lantus upon DC Monitor BGs Hyperlipidemia: On statin. Hypertension: On Metoprolol DVT Px: Lovenox SQ Code Status DNI only: Admission and Anticipated Discharge Date Admission Date: October 09, 2021 Subjective Yesterday attempted to wean to oxymizer did not go well. Patient became very anxious and was placed back on high flow Overnight was confused, hallucinating. Per nurse, for past several nights, he has been more confused This morning was anxious, received some ativan which allowed him to relax and rest. Physical Exam Physical Exam: laying in bed, appears drowsy but breathing comfortably Respiratory: breathing comfortably on high flow currently, no audible wheezing/rhonchi Cardiovascular: regular rate and rhythm, no murmurs/rubs Gastrointestinal (Abdomen): soft, non tender Musculoskeletal: no edema Neurologic: drowsy but arousable, spontaneously moving extremities Psychiatric: calm Results & Data Results & Data ([facility]) Vital Signs (Past 12 Hours) Vital Signs Temp Pulse Pulse Resp BP BP BP 10/31/21 07:52 37 C 82 16 119/76 10/31/21 07:50 81 10/31/21 07:34 89 24 10/31/21 04:17 37.0 C 103 H 103 H 40 H 117/73 117/73 10/31/21 02:24 114 H 30 H 10/31/21 00:02 10/30/21 23:12 36.7 C 102 H 22 145/80 H 10/30/21 22:24 95 H 20 Pulse Ox 10/31/21 07:52 98 10/31/21 07:50 10/31/21 07:34 89 L 10/31/21 04:17 97 10/31/21 02:24 98 10/31/21 00:02 93 10/30/21 23:12 10/30/21 22:24 95 Laboratory Results Short CBC 10/31/21 Range/Units 02:43 WBC 11.66 H (4.8-10.8) K/uL Hgb 13.9 L (14.0-18.0) g/dL Hct 42.0 (42-52) % Plt Count 281 (130-400) K/uL BMP 10/31/21 02:43 Sodium 136 Potassium 3.7 Chloride 99 Carbon Dioxide 28 BUN 16 Creatinine 0.50 L Glucose 153 H Calcium 8.4 L Liver Function 10/31/21 Range/Units 02:43 Total Bilirubin 0.7 (0.2-1.0) mg/dl AST 28 (13-39) U/L ALT 32 (7-52) U/L Alkaline Phosphatase 60 (34-104) U/L Albumin 3.0 L (3.4-5.0) gm/dl Diagnostic Findings CXR IMPRESSION: Cardiomegaly with extensive mixed interstitial and alveolar opacities redemonstrated, slightly progressed within the left upper lung. Medications Administered Current Inpatient Medications Acetaminophen (Acetaminophen 325 Mg Tab) 650 mg PO Q4H PRN PRN Reason: Pain or Fever Stop: 11/08/21 08:30 Last Admin: 10/30/21 05:10 Dose: 650 mg Documented by: Aspirin (Aspirin 81 Mg Ectab) 81 mg PO DAILY [facility] Stop: 11/08/21 08:59 Last Admin: 10/24/21 08:42 Dose: 81 mg Documented by: Benzonatate (Benzonatate 100 Mg Capsule) 100 mg PO TID [facility] Stop: 11/24/21 20:59 Last Admin: 10/31/21 08:20 Dose: 100 mg Documented by: Dextromethorphan Polymer Complex (Dextromethorphan Polymr Complx 30 Mg/5 Ml Udp) 30 mg PO Q6H PRN PRN Reason: Cough Stop: 11/24/21 16:09 Last Admin: 10/30/21 23:24 Dose: 30 mg Documented by: Dextrose (Dextrose 50% 50 Ml Syringe) 25 - 50 ml IV UD PRN; Protocol PRN Reason: Hypoglycemia Protocol Stop: 11/23/21 05:44 Enoxaparin Sodium (Enoxaparin Inj 40 Mg/0.4 Ml Syr) 40 mg SQ Q24H [facility] Stop: 11/08/21 08:30 Last Admin: 10/31/21 08:18 Dose: 40 mg Documented by: Glucagon (Glucagon For Inj 1 Mg Vial) 1 mg IM UD PRN; Protocol PRN Reason: Hypoglycemia Protocol Stop: 11/23/21 05:44 Glucose (Glucose 40% Gel 15 Gm Tube) 15 - 30 gm PO UD PRN; Protocol PRN Reason: Hypoglycemia Protocol Stop: 11/23/21 05:44 Glucose (Glucose 10 Tabs/Tube) 4 - 8 tabs PO UD PRN; Protocol PRN Reason: Hypoglycemia Protocol Stop: 11/23/21 05:44 Guaifenesin (Guaifenesin 200 Mg Tab) 200 mg PO Q6H PRN PRN Reason: cough Stop: 11/08/21 08:30 Last Admin: 10/10/21 08:47 Dose: 200 mg Documented by: Insulin Aspart (Insulin Aspart Per Unit) 0 units SC 1130,1630,2100 [facility] Stop: 11/15/21 20:34 Last Admin: 10/30/21 20:08 Dose: 1 units Documented by: Insulin Aspart (Insulin Aspart Per Unit) 0 units SC 0730 [facility] Stop: 11/22/21 07:29 Last Admin: 10/31/21 08:13 Dose: 29 units Documented by: Insulin Glargine (Insulin Glargine Solostar 100 Units/Ml 3 Ml Pen) 20 units SC BID [facility] Stop: 11/27/21 08:59 Last Admin: 10/31/21 08:51 Dose: 20 units Documented by: Insulin Human NPH (Insulin Human Nph) 15 units SC DAILY [facility]; Protocol Stop: 11/28/21 08:59 Last Admin: 10/31/21 08:51 Dose: 15 units Documented by: Levalbuterol HCl (Levalbuterol Hcl 1.25 Mg/3 Ml Neb) 1.25 mg NEB Q4H PRN; Protocol PRN Reason: Shortness Of Breath Or Wheezing Stop: 11/08/21 08:30 Lorazepam (Lorazepam 0.5 Mg Tab) 0.5 mg PO Q4 PRN PRN Reason: Anxiety Stop: 11/29/21 14:33 Last Admin: 10/31/21 09:09 Dose: 0.5 mg Documented by: Melatonin (Melatonin 3 Mg Tab) 3 mg PO HS PRN PRN Reason: Sleep Stop: 11/23/21 16:56 Last Admin: 10/24/21 21:44 Dose: 3 mg Documented by: Menthol (Cough Drop (Sugar Free) Temo 24 Temo/1 Box) 1 temo BUCCAL UD PRN PRN Reason: Cough Stop: 11/27/21 04:45 Metoprolol Succinate (Metoprolol Succ 25mg Ext Rel Tab) 25 mg PO DAILY [facility] Stop: 11/08/21 08:59 Last Admin: 10/31/21 08:21 Dose: 25 mg Documented by: Miscellaneous (Carbohydrates For Hypoglycemia ) 15 - 30 gm PO UD PRN PRN Reason: Hypoglycemia Treatment Stop: 11/23/21 05:44 Last Admin: 10/28/21 16:05 Dose: 15 gm Documented by: Miscellaneous (Remove Nicoderm Patch) 1 ea N/A DAILY@0859 [facility] Stop: 11/25/21 08:58 Last Admin: 10/31/21 08:22 Dose: 1 ea Documented by: Miscellaneous Information (Pharmacy Glycemic Mgmt Consult) 1 ea N/A UD PRN PRN Reason: Consult Stop: 11/20/21 14:06 Multivitamins (Multivitamin Tab) 1 tab PO DAILY [facility] Stop: 11/08/21 08:59 Last Admin: 10/31/21 08:20 Dose: 1 tab Documented by: Nicotine (Nicotine 14 Mg/24 Hr Patch) [facility] [place] Stop: 11/24/21 14:59 Last Admin: 10/31/21 08:21 Dose: 14 mg Documented by: Nitroglycerin (Nitroglycerin Sl 0.4 Mg/Tab Tab) 0.4 mg SL UD PRN PRN Reason: Chest Pain Stop: 11/08/21 08:30 Pantoprazole Sodium (Pantoprazole 40 Mg Tab) 40 mg PO BID [facility] Stop: 11/08/21 08:59 Last Admin: 10/31/21 08:20 Dose: 40 mg Documented by: Phenol (Chloraseptic 1.4% Soln 180 Ml Btl) 2 sprays MT Q8H PRN PRN Reason: Sorethroat Stop: 11/27/21 14:22 Last Admin: 10/29/21 02:00 Dose: 2 sprays Documented by: Polyethylene Glycol (Polyethylene (Miralax) 17 Gm Pack) 17 gm PO DAILY PRN PRN Reason: Constipation Stop: 11/18/21 22:41 Last Admin: 10/22/21 20:59 Dose: 17 gm Documented by: Prednisone (Prednisone 10 Mg Tablet) 30 mg PO DAILY [facility]; Taper Stop: 11/07/21 08:59 Quetiapine Fumarate (Quetiapine Fumarate 25 Mg Tablet) 25 mg PO [facility] Stop: 11/30/21 20:59 Sennosides (Senna 8.6 Mg Tab) 8.6 mg PO QAM [facility] Stop: 11/19/21 10:29 Last Admin: 10/31/21 08:20 Dose: 8.6 mg Documented by: Simvastatin (Simvastatin 80 Mg Tab) 80 mg PO [facility] Stop: 11/08/21 20:59 Last Admin: 10/30/21 20:10 Dose: 80 mg Documented by: Sodium Chloride (Sodium Chloride 0.65% Na Soln 45 Ml (Barron)) 2 sprays NA Q6 [facility] Stop: 11/14/21 12:44 Last Admin: 10/31/21 05:33 Dose: 2 sprays Documented by:
[2021-10-31 12:23] LABS: Base Excess ABG 5.9 mEq/L (-9-1.8); HCO3 ABG 31 mmol/L (19-24); PCO2 ABG 45 mmHg (35-46); PO2 ABG 65 mmHg (80-95); pH ABG 7.45 (7.35-7.45)
[2021-10-31 12:24] LABS: Allen Test Pos (Pos)
[2021-10-31] MEDS ORDERED: LORazepam 0.5 MG TAB PO PRN (15:21)
[2021-10-31] MEDS: SIMVASTATIN 80 MG TAB PO SCH (20:06)
[2021-10-31] MEDS ORDERED: INSULIN HUMAN REGULAR PER UNIT 5 UNITS in SYRINGE 4.95 ML IV ONE (20:30)
[2021-10-31] MEDS ORDERED: QUEtiapine FUMARATE 25 MG TABLET PO SCH (21:00)
[2021-10-31] MEDS: DEXTROMETHORPHAN POLYMR COMPLX 30 MG/5 ML UDP PO PRN (21:08)
[2021-10-31] MEDS ORDERED: MoRPHine SULFATE 2 MG/ML CARP IV STA (22:37)
[2021-10-31] MEDS ORDERED: MoRPHine SULFATE 2 MG/ML CARP ONE (22:42)
[2021-11-01] MEDS ORDERED: INSULIN ASPART PER UNIT SC SCH (02:00)
[2021-11-01 04:51] LABS: Basophils # (auto) 0.01 K/uL (0-0.2); Basophils % (auto) 0.1 %; Eosinophils # (auto) 0.14 K/uL (0-0.5); Eosinophils % (auto) 1.2 %; Hematocrit (blood only) 38.6 % (42-52); Hemoglobin 12.8 g/dL (14.0-18.0); Immature Granulocytes # (auto) 0.05 K/uL (0.00-0.02); Immature Granulocytes % (auto) 0.4 %; Lymphocytes # (auto) 1.59 K/uL (1.2-3.4); Lymphocytes % (auto) 13.9 %; Mean Corpuscular Hgb Conc 33.2 g/dL (32-36); Mean Corpuscular Volume 90.4 fL (80-100); Mean Platelet Volume 9.6 fL (7.4-10.4); Monocytes # (auto) 0.71 K/uL (0.11-0.59); Monocytes % (auto) 6.2 %; Neutrophils % (auto) 78.2 %; Platelet Count 256 K/uL (130-400); RDW Coefficient of Variation 13.8 % (11.5-14.5); RDW Standard Deviation 44.9 fL (36.4-46.3); Red Blood Count 4.27 M/uL (4.7-6.1)
[2021-11-01 05:02] LABS: D Dimer 3510 ug/L FEU (0-500)
[2021-11-01 05:14] LABS: BUN Creatinine Ratio 33.3 (10-20); C Reactive Protein 14.31 mg/dl (0-0.5); Calcium 8.4 mg/dl (8.5-10.1); Creatinine Clr Calc Pharmacy 106.1 ml/min; Est GFR (African American) 115.6 ml/min; Est GFR (Non-African American) 99.7 ml/min; Potassium 3.9 mmol/L (3.5-5.1)
[2021-11-01] MEDS: SODIUM CHLORIDE 0.65% NA SOLN 45 ML (OCEAN) SCH ×3 (07:35→17:15)
[2021-11-01] MEDS ORDERED: ENOXAPARIN 1 MG/KG SC SCH (08:45)
--- NOTE | 2021-11-01 08:57 | Hospitalist Progress Note ---
Date of Service November 01, 2021 Assessment & Plan (1) Acute respiratory failure with hypoxia: Plan: -D dimer elevated at 3510. Patient too unstable to move for CTA chest. Recommend increasing lovenox to therapeutic dose to empirically treat for VTE. This was discussed with Mr Burgess and he is agreeable -CRP rising 5.6--> 14.3. He has been on prednisone taper, unclear if he would benefit from additional course of IV steroids? -CXR yesterday does show extensive bilateral disease with mild worsening JV -With his increasing oxygen requirements this week and worsening CXR, will ask for Pulmonology re-consult to weigh in if any additional therapy is warranted -Procalcitonin remains negative (2) Pneumonia due to COVID-19 virus: Plan: -History of Covid 19 multifocal pneumonia, symptoms began mid August. Patient diagnosed 09/27/2021 -repeat CTA chest negative for PE but shows multifocal pneumonia, concern for ARDS -most repeat CXR shows mildly improved consolidations -completed 10 days of decadron. Restarted steroids (prednisone 40mg daily) due to concern for ARDS. -completed course of ceftriaxone and doxycycline. Procalcitonin was negative however -patient educated on self proning, incentive spirometry, aerobik use Plan: Delirium -due to prolonged hospital course -appears to be confused, hallucinating at night time -d/c seroquel. Can allow it PRN for episodes of agitation/confusion Inmsomnia -patient reports trazodone was more effective, will switch back Hemoptysis, resolved Likely due to above Aspirin held Monitor CBC Antitussives PRN Hb stable DM II Continue ISS and lantus per protocol Glycemic pharm on board for glycemic management A1c is 9.6 May need to increase metformin to 1000mg bid and needs lantus upon DC Monitor BGs Hyperlipidemia: On statin. Hypertension: On Metoprolol DVT Px: -Therapeutic lovenox Code Status DNI only: was updated on care plan. All questions were answered Admission and Anticipated Discharge Date Admission Date: October 09, 2021 Subjective Reports ongoing insomnia. Did not sleep well last night despite Seroquel. Reports 2 nights prior when he received Trazodone he was able to sleep some. Agreeable to going back on Trazodone Ativan is helping his anxiety, he feels calmer and less restless Physical Exam Physical Exam: Non toxic, laying in bed, currently wearing both high flow (FIO2- 100%, 60L/min) and NRB Respiratory: diminished diffusely, no wheezing/rhonchi, appears more comfortable than on previous days (less tachypneic) Cardiovascular: tachycardic, no murmurs/rubs/gallops Gastrointestinal (Abdomen): soft, non tender, non distended Musculoskeletal: no edema Neurologic: awake, alert Results & Data Results & Data ([facility]) Vital Signs (Past 12 Hours) Vital Signs Temp Pulse Resp BP BP Pulse Ox 11/01/21 07:46 36.6 C 101 H 24 97/63 L 91 11/01/21 07:05 92 H 26 H 90 11/01/21 04:23 36.8 C 111 H 36 H 101/61 97 11/01/21 03:12 111 H 26 H 92 10/31/21 22:40 142 H 26 H 90 10/31/21 22:39 37.1 C 123 H 50 H 105/63 92 Laboratory Results Short CBC 11/01/21 Range/Units 04:21 WBC 11.40 H (4.8-10.8) K/uL Hgb 12.8 L (14.0-18.0) g/dL Hct 38.6 L (42-52) % Plt Count 256 (130-400) K/uL BMP 11/01/21 04:21 Sodium 134 L Potassium 3.9 Chloride 98 Carbon Dioxide 31 BUN 20 Creatinine 0.60 Glucose 147 H Calcium 8.4 L D dimer 3510 CRP 14 Medications Administered Current Inpatient Medications Acetaminophen (Acetaminophen 325 Mg Tab) 650 mg PO Q4H PRN PRN Reason: Pain or Fever Stop: 11/08/21 08:30 Last Admin: 10/30/21 05:10 Dose: 650 mg Documented by: Aspirin (Aspirin 81 Mg Ectab) 81 mg PO QAM [facility] Stop: 12/01/21 08:59 Benzonatate (Benzonatate 100 Mg Capsule) 100 mg PO TID [facility] Stop: 11/24/21 20:59 Last Admin: 10/31/21 20:05 Dose: 100 mg Documented by: Dextromethorphan Polymer Complex (Dextromethorphan Polymr Complx 30 Mg/5 Ml Udp) 30 mg PO Q6H PRN PRN Reason: Cough Stop: 11/24/21 16:09 Last Admin: 10/31/21 21:08 Dose: 30 mg Documented by: Dextrose (Dextrose 50% 50 Ml Syringe) 25 - 50 ml IV UD PRN; Protocol PRN Reason: Hypoglycemia Protocol Stop: 11/23/21 05:44 Enoxaparin Sodium (Enoxaparin 80 Mg/0.8 Ml Syr) 80 mg SQ Q12H [facility] Stop: 12/01/21 08:59 Glucagon (Glucagon For Inj 1 Mg Vial) 1 mg IM UD PRN; Protocol PRN Reason: Hypoglycemia Protocol Stop: 11/23/21 05:44 Glucose (Glucose 40% Gel 15 Gm Tube) 15 - 30 gm PO UD PRN; Protocol PRN Reason: Hypoglycemia Protocol Stop: 11/23/21 05:44 Glucose (Glucose 10 Tabs/Tube) 4 - 8 tabs PO UD PRN; Protocol PRN Reason: Hypoglycemia Protocol Stop: 11/23/21 05:44 Guaifenesin (Guaifenesin 200 Mg Tab) 200 mg PO Q6H PRN PRN Reason: cough Stop: 11/08/21 08:30 Last Admin: 10/10/21 08:47 Dose: 200 mg Documented by: Insulin Aspart (Insulin Aspart Per Unit) 0 units SC 1130,1630,2100 [facility] Stop: 11/15/21 20:34 Last Admin: 10/31/21 21:08 Dose: 10 units Documented by: Insulin Aspart (Insulin Aspart Per Unit) 0 units SC 0730 [facility] Stop: 11/22/21 07:29 Last Admin: 10/31/21 08:13 Dose: 29 units Documented by: Insulin Glargine (Insulin Glargine Solostar 100 Units/Ml 3 Ml Pen) 20 units SC BID [facility] Stop: 11/27/21 08:59 Last Admin: 10/31/21 21:09 Dose: 20 units Documented by: Insulin Human NPH (Insulin Human Nph) 22 units SC DAILY [facility]; Protocol Stop: 12/01/21 08:59 Levalbuterol HCl (Levalbuterol Hcl 1.25 Mg/3 Ml Neb) 1.25 mg NEB Q4H PRN; Protocol PRN Reason: Shortness Of Breath Or Wheezing Stop: 11/08/21 08:30 Lorazepam (Lorazepam 0.5 Mg Tab) 0.5 mg PO Q6H PRN PRN Reason: Anxiety Stop: 11/30/21 15:20 Last Admin: 10/31/21 22:39 Dose: 0.5 mg Documented by: Melatonin (Melatonin 3 Mg Tab) 3 mg PO HS PRN PRN Reason: Sleep Stop: 11/23/21 16:56 Last Admin: 10/24/21 21:44 Dose: 3 mg Documented by: Menthol (Cough Drop (Sugar Free) Temo 24 Temo/1 Box) 1 temo BUCCAL UD PRN PRN Reason: Cough Stop: 11/27/21 04:45 Metoprolol Succinate (Metoprolol Succ 25mg Ext Rel Tab) 25 mg PO DAILY [facility] Stop: 11/08/21 08:59 Last Admin: 10/31/21 08:21 Dose: 25 mg Documented by: Miscellaneous (Carbohydrates For Hypoglycemia ) 15 - 30 gm PO UD PRN PRN Reason: Hypoglycemia Treatment Stop: 11/23/21 05:44 Last Admin: 10/28/21 16:05 Dose: 15 gm Documented by: Miscellaneous (Remove Nicoderm Patch) 1 ea N/A DAILY@0859 [facility] Stop: 11/25/21 08:58 Last Admin: 10/31/21 08:22 Dose: 1 ea Documented by: Miscellaneous Information (Pharmacy Glycemic Mgmt Consult) 1 ea N/A UD PRN PRN Reason: Consult Stop: 11/20/21 14:06 Multivitamins (Multivitamin Tab) 1 tab PO DAILY [facility] Stop: 11/08/21 08:59 Last Admin: 10/31/21 08:20 Dose: 1 tab Documented by: Nicotine (Nicotine 14 Mg/24 Hr Patch) 14 mg TD QAM [facility] Stop: 11/24/21 14:59 Last Admin: 10/31/21 08:21 Dose: 14 mg Documented by: Nitroglycerin (Nitroglycerin Sl 0.4 Mg/Tab Tab) 0.4 mg SL UD PRN PRN Reason: Chest Pain Stop: 11/08/21 08:30 Pantoprazole Sodium (Pantoprazole 40 Mg Tab) 40 mg PO BID [facility] Stop: 11/08/21 08:59 Last Admin: 10/31/21 20:05 Dose: 40 mg Documented by: Phenol (Chloraseptic 1.4% Soln 180 Ml Btl) 2 sprays MT Q8H PRN PRN Reason: Sorethroat Stop: 11/27/21 14:22 Last Admin: 10/29/21 02:00 Dose: 2 sprays Documented by: Polyethylene Glycol (Polyethylene (Miralax) 17 Gm Pack) 17 gm PO DAILY PRN PRN Reason: Constipation Stop: 11/18/21 22:41 Last Admin: 10/22/21 20:59 Dose: 17 gm Documented by: Prednisone (Prednisone 10 Mg Tablet) 30 mg PO DAILY [facility]; Taper Stop: 11/07/21 08:59 Sennosides (Senna 8.6 Mg Tab) 8.6 mg PO QAM [facility] Stop: 11/19/21 10:29 Last Admin: 10/31/21 08:20 Dose: 8.6 mg Documented by: Simvastatin (Simvastatin 80 Mg Tab) 80 mg PO [facility] Stop: 11/08/21 20:59 Last Admin: 10/31/21 20:06 Dose: 80 mg Documented by: Sodium Chloride (Sodium Chloride 0.65% Na Soln 45 Ml ([place])) 2 sprays NA Q6 [facility] Stop: 11/14/21 12:44 Last Admin: 11/01/21 07:35 Dose: 2 sprays Documented by: Trazodone HCl (Trazodone Hcl 50 Mg Tab) 25 mg PO HS [facility] Stop: 12/01/21 20:59
[2021-11-01] MEDS: PANTOprazole 40 MG TAB PO SCH (08:58)
[2021-11-01] MEDS: MULTIVITAMIN TAB PO SCH (08:59)
[2021-11-01] MEDS: METOPROLOL SUCC 25MG EXT REL TAB PO SCH (08:59)
[2021-11-01] MEDS: BENZONATATE 100 MG CAPSULE PO SCH ×2 (08:59→14:00)
[2021-11-01] MEDS ORDERED: INSULIN HUMAN NPH SC SCH (09:00)
[2021-11-01] MEDS ORDERED: predniSONE 10 MG TABLET PO SCH (09:00)
[2021-11-01] MEDS ORDERED: ENOXAPARIN 80 MG/0.8 ML SYR SQ SCH (09:00)
[2021-11-01] MEDS: SENNA 8.6 MG TAB PO SCH (09:00)
[2021-11-01] MEDS ORDERED: ASPIRIN 81 MG ECTAB PO SCH (09:00)
[2021-11-01] MEDS: NICOTINE 14 MG/24 HR PATCH TD SCH (09:01)
[2021-11-01] MEDS: INSULIN GLARGINE SOLOSTAR 100 UNITS/ML 3 ML PEN SC SCH (09:13)
[2021-11-01] MEDS: INSULIN ASPART PER UNIT SC SCH ×3 (09:13→17:15)
[2021-11-01] MEDS: ENOXAPARIN INJ 40 MG/0.4 ML SYR SQ SCH (10:18)
--- NOTE | 2021-11-01 10:30 | Pharmacy Report ---
Pharmacy Glycemic Short Note 2 - Date of Service November 01, 2021 - Glycemic Short BSG Results (Last 24 hours): 10/31/21 10/31/21 10/31/21 11:23 16:45 19:48 Glucose POC Glucose 288 H 298 H 387 H* 10/31/21 10/31/21 10/31/21 19:49 19:50 19:53 Glucose POC Glucose 342 H* 324 H* 335 H* 11/01/21 11/01/21 11/01/21 01:00 04:21 07:30 Glucose 147 H POC Glucose 110 H 131 H OUTPATIENT ANTIDIABETIC REGIMEN: * Metformin 1000 mg PO qAM, 500 mg PO qPM * Glipizide 10 mg PO BIDM * Trulicity 3 mg SC weekly on Friday * HbA1c: 9.6% (10/10/21) ASSESSMENT: 11/01/21 * Oliver received 112 units of insulin yesterday with very poor glycemic control (BSGs 246, 288, 298, 324 mg/dL) * 40 units of Lantus, 15 units NPH, 57 units of novolog * Fasting BSG greatly improved today. Continue current Lantus dose. * Increase NPH due to severe rise in BSG throughout the day 10/29/21 * BSGs yesterday were [phone] mg/dL. Today's fasting is 165 mg/dL. * Received 94 units of insulin yesterday - 40 basal and 54 bolus * Will keep 20 units BID basal today * Patient on a prednisone taper that is starting with 40mg daily x 2 days and then decreasing. 40mg given this AM. NPH added at 15 units with morning prednisone dose. Decreased from 20 units of NPH due to yesterday's dinner low * CF/CR at breakfast is 20 and 3, respectively to help with lunch time "highs" he is experiencing. CF/CR for other 3 checks is 25 and 7, respectively. This is loosened to help prevent the lows that occur in the evening hours. 10/28/21 * BSGs yesterday were [phone] mg/dL. Fasting today is 192 mg/dL. Patient changed from dexamethasone 6 mg IV daily to prednisone 40 mg daily. * Will increase Lantus back to 40 units daily. Fasting significantly elevated- Lantus 50 units daily too aggressive whereas 30 units is not sufficient. * Restart NPH 20 units daily. (0.25 units/kg) for steroid hyperglycemia. * For Novolog, will loosen CF (as patient's BSG at dinnertime was significantly decreased). Continue CR. 10/27/21 * Patient's BSGs yesterday were [phone] mg/dL and fasting today is 105 mg/dL. * Patient received 102 units of insulin yesterday (55 units of basal -- 30 units of Lantus and 25 units of NPH; 47 units of bolus). * Since patient's fasting has significantly decreased (264 --> 182 mg /dL --> 105 mg/dL), will split Lantus dosing into 15 units in the morning + 10 units in the evening (10% reduction from yesterday). This will allow for easier titration. * Reduce NPH as BSGs significantly lower yesterday. * Loosen Novolog due to lower BSGs. 10/26/21 * Patient's BSGs yesterday were [phone] mg/dL. Patient received Solu-Medrol 40 mg and prednisone 40 mg the evening prior plus dexamethasone 6 mg IV that morning. Patient to be continued on 6 mg IV daily. * Based upon this hospitalization, basal requirements appear to be close to 55- 60 units/day. HOWEVER, patient now has NPH ordered in addition to Lantus for steroid hyperglycemia. Will aim for around 50 units of Lantus and 25 units of NPH for now. * Novolog was tightened yesterday. Will loosen CF slightly as appears patient overcorrects with CF of 15. 10/25 * Patient received Solu-Medrol 20mg IV x 1 and Prednisone 40mg PO x1 last evening, resulting in blood sugars in 200s last night and this AM * Started on Dexamethasone 6mg IV daily this morning, will add NPH to cover and tighten CR at breakfast at this time * Reduce HS Lantus, as patient will receive more basal coverage in AM with NPH and to prevent AM Hypoglycemia 10/23 * Fasting BSG 212mg/dl - increase HS Lantus dose * CR adjusted to be tighter with breakfast yesterday, no further insulin changes at this time 10/22 * BSGs improved following consult, 234, 101, 113, 162 mg/dL, fasting BSG of 136 mg/dL this morning * Received 97 units of insulin (55 units of Lantus and 42 units of prandial/correctional bolus) * Lunch BSG trending up again today, will continue current Novolog parameters, but will tighten AM parameters starting tomorrow 10/21 * DANNI is a 75 year old male with T2DM admitted on 10/09/21 with COVID-19 pneumonia * Last dose of IV dexamethasone was 10/18/21 * BSGs have been persistently elevated throughout admission, pharmacy consulted for glycemic management today for lunchtime BSG of 235 mg/dL * Will begin to increase basal insulin today and slightly tighten carb ratio * No other obvious stressors beyond infection * Pertinent PMH includes hypertension and hyperlipidemia PLAN FOR INPATIENT GLYCEMIC CONTROL: * Hold outpatient diabetes medications * Basal insulin - increase NPH * Lantus 20 units SC BID * NPH 22 units SC daily with IV dexamethasone (hold if dexamethasone held) * Bolus insulin * NovoLog per scale ACHS or Q6hrs while NPO * Goal Range: Low 110 mg/dL - High 140 mg/dL * Correction Factor: 20 mg/dL/unit * Nutritional / Prandial insulin per carb ratio of 1 unit per 6 grams CHO consumed (2.5 CHO ratio with breakfast) PLAN FOR DISCHARGE: * HbA1c of 9.6% suggests poor outpatient glycemic control (reasonable goal for most adults is less than 7%) * Patient follows with [facility]uy[facility] clinic - suggest prompt follow- up with them at time of discharge * Patient would likely benefit from addition of once daily basal insulin, but will defer to their judgment * Reasonable to increase metformin to 1000 mg BIDM
--- NOTE | 2021-11-01 10:41 | Pulmonology Progress Note ---
Date of Service November 01, 2021 Assessment & Plan (1) Pneumonia due to COVID-19 virus: (2) Hypoxemia: (3) GERD (gastroesophageal reflux disease): (4) DM type 2 (diabetes mellitus, type 2): Plan: Attending: Dr. George Impression: 75-year-old male with nonproductive cough which started 08/29/2021. Covid test at that time was negative. Patient had progressive complaints and shortness of breath. Patient was then admitted 09/27/2021 and found to be positive for COVID-19. He received dexamethasone and seemed to do better with no hypoxia on room air. He was discharged home on a prednisone taper 09/28/2021. Patient was then readmitted 10/09/2021. He has been hospitalized since that time. He is currently off Covid precautions. Recommendations: 1. COVID-19 * CTA of the chest was negative for pulmonary emboli. Persistent evidence of multifocal pneumonia consistent with viral pneumonia specifically with a COVID-19 pattern * Patient was admitted 09/27 to 09/28/2021. And then was readmitted 10/09/2021. He did not receive remdesivir as symptoms started in mid August * Patient was empirically started on ceftriaxone and doxycycline although his procalcitonin was negative * CRP is again elevated. Procalcitonin and proBNP are negative. * Patient has been on and off steroids since admission. He did complete initial course of dexamethasone. Most recently was started on 30 mg of p.o. prednisone again. * Discussion with patient and his Caroline by phone. At this time will change CODE STATUS to DNR/DNI. After arrives for visitation, plan is to change patient to comfort measures only. * Patient has been unable to be weaned off of high flow oxygen. He has been anticoagulated with Lovenox. Primary team increased Lovenox empirically due to persistent hypoxia. 2. Hypoxia * Most likely secondary to COVID-19 multifocal pneumonia * Unable to wean patient off of high flow oxygen. * Now with tachypnea and tachycardia on 60 L/min and 100% FiO2 * Transition to comfort measures only Disposition: Patient symptoms have waxed and waned since the middle of August. Review of imaging as well as history and examination reveals very poor prognosis. Inasmuch as we have been unable to wean high flow oxygen and patient is not a candidate for lung transplant secondary to age, no other viable treatments are available. Due to length of stay, patient is not eligible for ECMO. CODE STATUS changed to DNR/DNI. Transition to comfort measures only later on today with primary team. Plan communicated with Dr. Heredia of the [facility] team as well as with Dr. Dorman, pulmonary/critical care medicine Admission and Anticipated Discharge Date Admission Date: October 09, 2021 Supervising Physician Co-Signing Physician Notes Discussed with MINGO. Agree with assessment and plan. The patient is on high flow oxygen and does not want additional aggressive interventions undertaken. We will respect his wishes. Transitioning to comfort care measures. Pulmonary will sign off at this point time. Feel free to contact us if we can be of additional assistance. Subjective Attending: Dr. Dorman Patient seen early in the admission by the pulmonary service. We are asked to reengage by Dr. Heredia of the [facility] team. Patient continues to require high flow supplemental oxygen. He is currently on 60 L/min with an FiO2 of 100%. Patient has increased respiratory rate in the mid to upper 20s. He also complains of progressive weakness to the point where he is unable to get out of bed or ambulate on his own. He has no chest pain or tightness. He denies any fever or chills. Laboratory studies were checked and his CRP is again elevated. He has a negative procalcitonin and a negative proBNP. I called the patient's Caroline on speaker phone and had discussion with her and the patient. At this point the patient states "I just cannot do this anymore". Patient has been on pulse steroids and is currently on prednisone 30 mg p.o. daily. Plan will be for Caroline for [id number] discussion. Review of Systems Review of Systems: All systems reviewed & are unremarkable except as noted in Subjective Physical Exam Physical Exam: GENERAL : No acute distress. He does however have use of accessory muscles and increased respiratory rate. Patient appears ill EYES: No icterus, gaze conjugate NOSE: No evidence of epistaxis. High flow nasal cannula in place MOUTH: No lesions or candidiasis NECK: Supple LUNGS: Decreased breath sounds throughout. No appreciation of bronchospasm HEART: Regular, tachycardic at around 120 bpm at the time of my examination ABDOMEN: Soft, NT, ND, BS Present EXTREMITIES: No LE edema bilaterally, pedal pulses intact NEURO: A&OX3 Results & Data Results & Data ([facility]) Vital Signs (Past 12 Hours) Vital Signs Temp Pulse Resp BP BP Pulse Ox 11/01/21 07:46 36.6 C 101 H 24 97/63 L 91 11/01/21 07:05 92 H 26 H 90 11/01/21 04:23 36.8 C 111 H 36 H 101/61 97 11/01/21 03:12 111 H 26 H 92 10/31/21 22:40 142 H 26 H 90 10/31/21 22:39 37.1 C 123 H 50 H 105/63 92 Critical Care Results & Data Vital Signs (Past 12 Hours) Vital Signs Temp Pulse Resp BP BP Pulse Ox 11/01/21 07:46 36.6 C 101 H 24 97/63 L 91 11/01/21 07:05 92 H 26 H 90 11/01/21 04:23 36.8 C 111 H 36 H 101/61 97 11/01/21 03:12 111 H 26 H 92 10/31/21 22:40 142 H 26 H 90 10/31/21 22:39 37.1 C 123 H 50 H 105/63 92 Lab & Micro Results (Past 24 Hours) RBC 4.27 M/uL (4.7-6.1) L 11/01/21 WBC 11.40 K/uL (4.8-10.8) H 11/01/21 Hgb 12.8 g/dL (14.0-18.0) L 11/01/21 Hct 38.6 % (42-52) L 11/01/21 MCV 90.4 fL (80-100) 11/01/21 MCH 30.0 pg (25-34) 11/01/21 MCHC 33.2 g/dL (32-36) 11/01/21 RDW Standard Deviation 44.9 fL (36.4-46.3) 11/01/21 RDW Coefficient of Variation 13.8 % (11.5-14.5) 11/01/21 Plt Count 256 K/uL (130-400) 11/01/21 MPV 9.6 fL (7.4-10.4) 11/01/21 Neutrophils (%) (Auto) 78.2 % 11/01/21 Lymphocytes (%) (Auto) 13.9 % 11/01/21 Monocytes # (Auto) 0.71 K/uL (0.11-0.59) H 11/01/21 Eosinophils # (Auto) 0.14 K/uL (0-0.5) 11/01/21 Immature Granulocyte % (Auto) 0.4 % 11/01/21 Neutrophils # (Auto) 8.90 K/uL (1.4-6.5) H 11/01/21 Lymphocytes # (Auto) 1.59 K/uL (1.2-3.4) 11/01/21 Monocytes # (Auto) 0.71 K/uL (0.11-0.59) H 11/01/21 Eosinophils # (Auto) 0.14 K/uL (0-0.5) 11/01/21 Basophils # (Auto) 0.01 K/uL (0-0.2) 11/01/21 Immature Granulocyte # (Auto) 0.05 K/uL (0.00-0.02) H 11/01/21 Na 134 mmol/L (136-145) L 11/01/21 K 3.9 mmol/L (3.5-5.1) 11/01/21 Cl 98 mmol/L (98-107) 11/01/21 CO2 31 mmol/L (21-32) 11/01/21 Anion Gap 5 (3-11) 11/01/21 BUN 20 mg/dl (6-23) 11/01/21 Creatinine 0.60 mg/dl (0.6-1.4) 11/01/21 Estimated GFR ( Amer) 115.6 ml/min 11/01/21 Estimated GFR (Non-Af Amer) 99.7 ml/min 11/01/21 BUN/Creatinine Ratio 33.3 (10-20) H 11/01/21 Glu 147 mg/dl (70-99(Fasting)) H 11/01/21 Ca 8.4 mg/dl (8.5-10.1) L 11/01/21 Calcium Level 8.4 mg/dl (8.5-10.1) L 11/01/21 04:21 11/01/21 I & O Totals 24 Hours 10/31/21 11/01/21 11/02/21 06:59 06:59 06:59 Intake Total 1615 / 1615 200 / 200 Output Total 1525 / 1525 1475 / 1475 Balance 90 / 90 -1275 / -1275 Cumulative 10/08/21 22:16 thru 10/31/21 23:10 Intake Total 48466.333 Output Total 68517 Balance -48.667 RT Ventilator Mngmt (Last Documented) Ventilator Ordered Settings Respiratory Rate 24 11/01/21 07 :46 Fraction of Inspired Oxygen 100 11/01/21 07:05 Ventilator - PT Measurements Respiratory Rate 24 PG Care Time/CCT Total # of Minutes Spent Total Time Spent with Patient: Total time spent is greater than 50% in coordination of care (as documented) at patient's floor/unit and/or counseling patient: 45 minutes including discussion regarding end-of-life care with patient and . 45 minutes discussing end-of-life care with patient and . Coding Level of Care Code Critical Care 1st 30-74 mins Diagnoses Pneumonia due to COVID-19 virus U07.1; J12.82 Hypoxemia R09.02 GERD (gastroesophageal reflux disease) K21.9 DM type 2 (diabetes mellitus, type 2) E11.9 Time Spent (min) 45 Comment 45 minutes discussing end-of-life care with patient and .
[2021-11-01] MEDS ORDERED: STAT IV Infusion **Titration per Protocol STA (12:09)
[2021-11-01] MEDS ORDERED: ONDANSETRON 4 MG OD TAB SL PRN (12:09)
[2021-11-01] MEDS ORDERED: ONDANSETRON INJ 2 MG/ML 2 ML VIAL IV PRN (12:09)
[2021-11-01] MEDS ORDERED: MoRPHine SULFATE 2 MG/ML CARP IV PRN (12:09)
[2021-11-01] MEDS ORDERED: MoRPHine SULF/NSS 250 MG/250 ML BTL IV SCH (12:30)
[2021-11-01] MEDS: HYOSCYAMINE SULFATE 0.125 MG TAB SL PRN (13:45)
[2021-11-01] MEDS: LORazepam 0.5 MG/1 ML VIAL IV PRN (14:01)
[2021-11-01] MEDS ORDERED: traZODone HCL 50 MG TAB PO SCH (21:00)
[2021-11-02] MEDS: INSULIN GLARGINE SOLOSTAR 100 UNITS/ML 3 ML PEN SC SCH (00:28)
[2021-11-02] MEDS: PANTOprazole 40 MG TAB PO SCH (00:28)
[2021-11-02] MEDS: BENZONATATE 100 MG CAPSULE PO SCH (00:28)
[2021-11-02] MEDS: SODIUM CHLORIDE 0.65% NA SOLN 45 ML (OCEAN) SCH (00:29)
[2021-11-02] MEDS: INSULIN ASPART PER UNIT SC SCH (00:30)
[2021-11-02] MEDS: LORazepam 0.5 MG/1 ML VIAL IV PRN ×3 (01:54→10:06)
[2021-11-02] MEDS ORDERED: INSULIN ASPART PER UNIT SC SCH (07:30)
[2021-11-02] MEDS: HYOSCYAMINE SULFATE 0.125 MG TAB SL PRN (08:37)
[2021-11-02] MEDS: NICOTINE 14 MG/24 HR PATCH TD SCH (08:38)
--- NOTE | 2021-11-02 12:16 | Hospitalist Progress Note ---
Date of Service November 02, 2021 Assessment & Plan Admission and Anticipated Discharge Date Admission Date: October 09, 2021 Subjective Notified by RN that patient had ceased to breath at 1150am. I arrived shortly after. Upon exam, patient is with absent heart and lung sounds. was present at bedside. She declines autopsy
--- NOTE | 2021-11-02 12:58 | Discharge Summary ---
Date of Service November 02, 2021 Admission HPI Per Admitting Provider This is a 75-year-old male with past medical history significant for diabetes, diabetic polyneuropathy, osteoarthritis. Chews tobacco. Was recently in the hospital for COVID pneumonia treated with IV dexamethasone and was discharged home, comes back with shortness of breath. The patient states after going home couple of days later felt short of breath, had a lot of cough. Could not breath. When he came in, in the ER, initially he was saturating only 79% and currently is on high-flow. Denies any chest pain . Says poor appetite. Denies any other complaints. No headache, no blurred visions, no earache, no runny nose, no sore throat, no nausea, no vomiting, no chest pain, no abdominal pain, no diarrhea, no constipation. Normal bladder movements. Principal Diagnosis Acute hypoxic respiratory failure Severe Covid 19 pneumonia Comfort measures Discharge Exam Patient was . Absent heart and lung sounds. Discharge Data Allergies Allergy/AdvReac Type Severity Reaction Status Date / Time No Known Allergies Allergy Unverified 02/28/16 17:43 Consultations 10/09/21 08:31 Consult Pulmonology Routine 11/01/21 08:48 Consult Pulmonology Routine 11/01/21 12:09 Consult Palliative Care Routine Ordered Studies 10/09/21 00:48 CT angio chest PE protocol Urgent 10/25/21 08:50 CT angio chest PE protocol Routine Diabetes Follow up Diabetes Follow-up Needed for HgbA1c >9% Hospital Course (1) Acute respiratory failure with hypoxia: (2) Pneumonia due to COVID-19 virus: Mr Burgess is a 75 year old man with history of diabetes with neuropathy and chewing tobacco who initially developed Covid 19 symptoms middle of August 2021. With his ongoing symptoms, he presented to [facility] 09/27/2021 for cough and CXR at the time showed pneumonia and Covid 19 test came back positive. He received decadron in the ER but this was not continued further due to absence of hypoxia. He was subsequently discharged home then later came back 10/09/2021 with worsening cough and shortness of breath. This time, he was hypoxic--down to 70s% on room air and was placed on high flow oxygen. While here, he finished a 10 day course of decadron and later was restarted on prednisone with concern for ARDS. He also finished an empiric course of ceftriaxone and doxycyline despite negative procalcitonin. He remained here on high flow supplemental oxygen during this time but with no improvement and with increasing debility, anxiety, and fatigue. On 11/01/2021 after family meeting with primary service, pulmonary service, patient and his --patient requested to be placed on comfort measures. He was placed on a morphine drip and taken off high flow oxygen (but maintained on nasal canula for comfort). On 11/02/2021 he was noted by nursing to have ceased to breath at 1150am. He was pronounced shortly later. declines autopsy Total Time Total Time Spent Total Time Spent (In Minutes): 35 Discharge Plan Discharge Items Patient Disposition: Other Date/Time: 11/02/21 11:50
== END 2021-11-02 15:10 | disposition expired | DRG 177 ==
LOC: ED 22:16 → SUATTDRO 10-09 06:02 → EDINP 10-09 06:02 → 2W 10-09 08:30 → 2S 10-11 09:50 → 3E 11-01 16:31